=== PATIENT | male | born 1930 | race Caucasian/White ===

== ENCOUNTER 2017-01-05 16:20 | Inpatient (IN) | payer MEDICARE, BC ==
[2017-01-05] VITALS (8 sets, daily range): BP systolic 103–140; BP diastolic 58–81; PULSE 68–81; RESP 16–20; TEMP 97.8–98.7; O2SAT 90–100
[~2017-01-05] VITALS: Ht 167.6 cm; Wt 91.0 kg
[~2017-01-05 16:20] MED LIST: AMLO10 PO; ASPI81 PO; ATAC32TA PO; CITA10TA4 PO; LORTA5 PO; PRAV40TA PO; PREV30CA36 PO; ROPI2 PO; TAB-TAB PO; TRIA50 PO; VITA250T32 PO
[2017-01-05] MEDS ORDERED: AMLO10TA2 PO (17:39)
[2017-01-05] MEDS ORDERED: ASCO250C CHEW (17:39)
[2017-01-05] MEDS ORDERED: CITA10TA4 PO (17:40)
[2017-01-05] MEDS ORDERED: CAND32TA10 PO (17:40)
[2017-01-05] MEDS ORDERED: ASPI81CH CHEW (17:40)
[2017-01-05] MEDS ORDERED: LANS30CA PO (17:41)
[2017-01-05] MEDS ORDERED: PRAV40TA PO (17:41)
[2017-01-05] MEDS ORDERED: ROPI2TAB PO (17:42)
[2017-01-05] MEDS ORDERED: TRIA1CAP6 PO (17:42)
[2017-01-05] MEDS ORDERED: SODIUM CHLORIDE 0.9% FLUSH 5 ML FLUSH IVF PRN (17:45)
--- NOTE | 2017-01-05 17:53 | PD ---
HPI Chief Complaint: GI Complaint Time Seen by Provider: 17:47 Travel History International Travel<30 days: No Contact w/Intl Traveler<30days: No Traveled to known affect area: No History of Present Illness HPI 86-year-old male with history of diverticulosis, status post hemicolectomy, multiple medical issues, presents to the ER today because he states that since last night, he's had abdominal discomfort, bloating, nausea, and currently rates his abdominal pain at a 6 out of 10. He denies any fevers, diarrhea, vomiting, or other symptoms. He had a normal bowel movement last night. Modifying Factors: None Associated Signs & Symptoms: Abdominal pain and bloating Risk Factors: Hemicolectomy history PFSH Past Medical History Anxiety: Yes High Cholesterol: Yes Diminished Hearing: No GERD: Yes Hypertension: Yes Tetanus Vaccination: Unknown Influenza Vaccination: Yes Past Surgical History Abdominal Surgery: Yes (COLON RESECTION FOR DIVERTICULITIS) Social History Alcohol Use: Yes (DRINK DAILY) Tobacco Use: No Substance Use: No Allergies-Medications (Allergen,Severity, Reaction): Uncoded Allergies: NALFON (Allergy, Severe, HIVES, 09/21/09) Reported Meds & Prescriptions Reported Meds & Active Scripts Active Reported Dyrenium (Triamterene) 50 Mg Cap 37.5 Mg PO DAILY Ropinirole 2 Mg Tab 2 Mg PO DAILY Pravachol (Pravastatin) 40 Mg Tab 40 Mg PO DAILY Lansoprazole 30 Mg Capdr 30 Mg PO DAILY Citalopram (Citalopram Hydrobromide) 10 Mg Tab 10 Mg PO DAILY Candesartan (Candesartan Cilexetil) 32 Mg Tab 32 Mg PO DAILY Aspirin 81 Mg Chew 81 Mg CHEW DAILY Ascorbic Acid 250 Mg Chew 250 Mg CHEW DAILY Amlodipine (Amlodipine Besylate) 10 Mg Tab 10 Mg PO DAILY Review of Systems Except as stated in HPI: all other systems reviewed are Neg Physical Exam Narrative GENERAL: [Well-developed elderly white male in no acute distress. Awake and oriented 3. SKIN: Warm and dry. HEAD: Atraumatic. Normocephalic. EYES: Pupils equal and round. No scleral icterus. No injection or drainage. ENT: No nasal bleeding or discharge. Mucous membranes pink and moist. NECK: Trachea midline. No JVD. CARDIOVASCULAR: Regular rate and rhythm. No murmur appreciated. RESPIRATORY: No accessory muscle use. Clear to auscultation. Breath sounds equal bilaterally. GASTROINTESTINAL: Abdomen soft, non-tender, moderately distended. Hepatic and splenic margins not palpable. MUSCULOSKELETAL: No obvious deformities. No clubbing. No cyanosis. No edema. NEUROLOGICAL: Awake and alert. No obvious cranial nerve deficits. Motor grossly within normal limits. Normal speech. PSYCHIATRIC: Appropriate mood and affect; insight and judgment normal. Data Data Last Documented VS Vital Signs Date Time Temp Pulse Resp B/P Pulse Ox O2 Delivery O2 Flow Rate FiO2 01/05/17 18:26 68 16 110/58 98 Room Air 01/05/17 16:36 98.7 Orders Complete Blood Count With Diff (01/05/17 17:42) Comprehensive Metabolic Panel (01/05/17 17:42) Lipase (01/05/17 17:42) Urinalysis - C+S If Indicated (01/05/17 17:42) Iv Access Insert/Monitor (01/05/17 17:42) Ecg Monitoring (01/05/17 17:42) Oximetry (01/05/17 17:42) Sodium Chloride 0.9% Flush (Ns Flush) (01/05/17 17:45) Abdomen, Flat & Upright (01/05/17 17:47) Ct Abd/Pel W Iv Contrast(Rout) (01/05/17 17:47) Labs Laboratory Tests Test 01/05/17 18:24 White Blood Count 12.6 TH/MM3 Red Blood Count 5.05 MIL/MM3 Hemoglobin 15.6 GM/DL Hematocrit 46.8 % Mean Corpuscular Volume 92.7 FL Mean Corpuscular Hemoglobin 30.9 PG Mean Corpuscular Hemoglobin 33.3 % Concent Red Cell Distribution Width 12.2 % Platelet Count 227 TH/MM3 Mean Platelet Volume 8.3 FL Neutrophils (%) (Auto) 82.6 % Lymphocytes (%) (Auto) 11.2 % Monocytes (%) (Auto) 5.1 % Eosinophils (%) (Auto) 0.6 % Basophils (%) (Auto) 0.5 % Neutrophils # (Auto) 10.4 TH/MM3 Lymphocytes # (Auto) 1.4 TH/MM3 Monocytes # (Auto) 0.6 TH/MM3 Eosinophils # (Auto) 0.1 TH/MM3 Basophils # (Auto) 0.1 TH/MM3 CBC Comment AUTO DIFF Sodium Level 142 MEQ/L Potassium Level 4.6 MEQ/L Chloride Level 103 MEQ/L Carbon Dioxide Level 30.1 MEQ/L Anion Gap 9 MEQ/L Blood Urea Nitrogen 36 MG/DL Creatinine 1.80 MG/DL Estimat Glomerular Filtration 36 ML/MIN Rate Random Glucose 121 MG/DL Calcium Level 9.5 MG/DL Total Bilirubin 0.7 MG/DL Aspartate Amino Transf 26 U/L (AST/SGOT) Alanine Aminotransferase 33 U/L (ALT/SGPT) Alkaline Phosphatase 87 U/L Total Protein 8.4 GM/DL Albumin 4.6 GM/DL Lipase 116 U/L [facility] Medical Decision Making Medical Screen Exam Complete: Yes Emergency Medical Condition: Yes Medical Record Reviewed: Yes Interpretation(s) Laboratory Tests Test 01/05/17 18:24 White Blood Count 12.6 TH/MM3 (4.0-11.0) Neutrophils (%) (Auto) 82.6 % (16.0-70.0) Neutrophils # (Auto) 10.4 TH/MM3 (1.8-7.7) Blood Urea Nitrogen 36 MG/DL (7-18) Creatinine 1.80 MG/DL (0.60-1.30) Estimat Glomerular Filtration 36 ML/MIN (>89) Rate Random Glucose 121 MG/DL (74-106) Total Protein 8.4 GM/DL (6.4-8.2) Last 24 hours Impressions Abdomen X-Ray 01/05/17 0604 Signed Impressions: Service Date/Time: Thursday, January 05, 2017 17:53 - CONCLUSION: Nonspecific bowel gas pattern with mildly distended gas-filled loops of small bowel seen. An ileus or bowel obstruction can have this appearance. Jayden Youssef MD Differential Diagnosis Abdominal pain and bloatingobstruction versus ileus versus ascites versus constipation versus other acute intra-abdominal processes Narrative Course Initial x-ray shows signs of ileus. CAT scan ordered for further evaluation. Physician Communication Physician Communication Case is signed out to oncoming physician at 7 PM pending CAT scan. Diagnosis Primary Impression: GENERALIZED ABDOMINAL PAIN Admitting Information Admitting Physician Requests: Admit Katherin Chance MD Jan 05, 2017 17:53
--- NOTE | 2017-01-05 18:12 | RADHPO ---
EXAM DATE/TIME: 01/05/2017 17:53 [facility] COMPARISON: No previous studies available for comparison. INDICATIONS : Abdominal pain, distension starting yesterday MEDICAL HISTORY : Carcinoma, colon. SURGICAL HISTORY : Colon resection ENCOUNTER: Initial ACUITY: 1 day PAIN SCORE: 8/10 LOCATION: All quadrants FINDINGS: Air is present within mildly distended loops of presumed small bowel overlying the central abdomen. T here is some air in the left colon and transverse colon suspected. No free air beneath the diaphragm. Osseous structures are intact. CONCLUSION: Nonspecific bowel gas pattern with mildly distended gas-filled loops of small bowel seen. An ileus or bowel obstruction can have this appearance. Jayden Youssef MD on January 05, 2017 at 18:10 Board Certified Radiologist. This report was verified electronically.
[2017-01-05 18:40] LABS: CHLORIDE 103 MEQ/L (98-107); POTASSIUM 4.6 MEQ/L (3.5-5.1); SODIUM (NA) 142 MEQ/L (136-145)
[2017-01-05 18:43] LABS: AUTOMATED NEUTROPHIL # 10.4 TH/MM3 (1.8-7.7); BASOPHIL # 0.1 TH/MM3 (0-0.2); BASOPHIL % 0.5 % (0.0-2.0); EOSINOPHIL # 0.1 TH/MM3 (0-0.4); EOSINOPHIL % 0.6 % (0.0-4.0); HEMATOCRIT 46.8 % (39.0-51.0); LYMPH % 11.2 % (9.0-44.0); LYMPHOCYTE # 1.4 TH/MM3 (1.0-4.8); MEAN CELL VOLUME 92.7 FL (80.0-100.0); MEAN CORPUSCULAR HEMOGLOBIN 30.9 PG (27.0-34.0); MEAN CORPUSCULAR HGB CONC 33.3 % (32.0-36.0); MONO % 5.1 % (0.0-8.0); NEUT % 82.6 % (16.0-70.0); PLATELET COUNT 227 TH/MM3 (150-450); RED BLOOD COUNT 5.05 MIL/MM3 (4.50-5.90); RED CELL DISTRIBUTION WIDTH 12.2 % (11.6-17.2); WHITE BLOOD COUNT 12.6 TH/MM3 (4.0-11.0)
[2017-01-05 18:44] LABS: ANION GAP 9 MEQ/L (5-15); BICARBONATE 30.1 MEQ/L (21.0-32.0); BLOOD UREA NITROGEN 36 MG/DL (7-18)
[2017-01-05 18:46] LABS: HEMO FLAGS AUTO DIFF
[2017-01-05 18:47] LABS: ALT (GPT) 33 U/L (12-78); AST (GOT) 26 U/L (15-37); GLOMERULAR FILTRATION RATE 36 ML/MIN (>89)
[2017-01-05 18:48] LABS: TOTAL BILIRUBIN ADULT 0.7 MG/DL (0.2-1.0)
[2017-01-05 18:50] LABS: ALKALINE PHOSPHATASE 87 U/L (45-117)
[2017-01-05 19:13] LABS: SCAN/DIFF AUTO DIFF CONFIRMED
[2017-01-05] MEDS ORDERED: IOHEXOL 350 MG/ML 10 ML VIAL (for RAD DIAG) IV ONE (19:15)
[2017-01-05] MEDS ORDERED: IODIXANOL 320 MG/ML 10 ML VIAL (for Rad CT) IV ONE (19:16)
--- NOTE | 2017-01-05 19:28 | RADHPO ---
EXAM DATE/TIME: 01/05/2017 18:56 [facility] COMPARISON: No previous studies available for comparison. INDICATIONS : Diffuse abdominal pain. IV CONTRAST: 50 cc Visipaque (iodixanol) IV ORAL CONTRAST: No oral contrast ingested. RADIATION DOSE: 19.64 CTDIvol (mGy) MEDICAL HISTORY : Hypertension. Gastroesophageal reflux disease. Diverticulitis. SURGICAL HISTORY : Colon resection. Discectomy, lumbar. ENCOUNTER: Initial ACUITY: 1 day PAIN SCALE: 6/10 LOCATION: Bilateral abdomen TECHNIQUE: Volumetric scanning of the abdomen and pelvis was performed. Using automated exposure control and ad justment of the mA and/or kV according to patient size, radiation dose was kept as low as reasonably achievable to obtain optimal diagnostic quality images. FINDINGS: Small hiatal hernia. Mild fatty infiltration of the liver. Spleen, pancreas, left adrenal gland, left kidney is within normal limits. 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 There is a n odule of the medial limb of the right adrenal gland measuring 1.7 cm, incompletely characterized on t his study. Atherosclerotic calcifications of the aorta and iliac vessels are seen. Small fat containi ng inguinal hernias are noted bilaterally. There is diverticulosis of the sigmoid and descending colo n as well as transverse colon without diverticulitis. Appendix normal. There are decompressed loops o f distal ileum identified with a number a transition point in the right lower quadrant on image 49 pr oximal to which there are moderately dilated loops of fluid-filled small bowel seen. There is mild st randing of the small bowel mesentery identified. There is no free intraperitoneal air identified. Stefani g bases are clear. Degenerative changes of the spine are noted. CONCLUSION: 1. Wall bowel obstruction is noted with transition point in the right lower quadrant. Jayden Youssef MD on January 05, 2017 at 19:24 Board Certified Radiologist. This report was verified electronically.
--- NOTE | 2017-01-05 19:40 | PD ---
Physical Exam Date Seen by Provider: Jan 05, 2017 Data Data Last Documented VS Vital Signs Date Time Temp Pulse Resp B/P Pulse Ox O2 Delivery O2 Flow Rate FiO2 01/05/17 20:13 18 01/05/17 19:20 81 140/76 95 Room Air 01/05/17 16:36 98.7 Orders Complete Blood Count With Diff (01/05/17 17:42) Comprehensive Metabolic Panel (01/05/17 17:42) Lipase (01/05/17 17:42) Urinalysis - C+S If Indicated (01/05/17 17:42) Iv Access Insert/Monitor (01/05/17 17:42) Ecg Monitoring (01/05/17 17:42) Oximetry (01/05/17 17:42) Sodium Chloride 0.9% Flush (Ns Flush) (01/05/17 17:45) Abdomen, Flat & Upright (01/05/17 17:47) Ct Abd/Pel W Iv Contrast(Rout) (01/05/17 17:47) Iodixanol 320 Inj (Rad Ct) (Visipaque 32 (01/05/17 19:16) Ondansetron Inj (Zofran Inj) (01/05/17 19:45) Morphine Inj (Morphine Inj) (01/05/17 19:45) Insert Ng Tube (01/05/17 19:45) Consult General Surgery (01/05/17 ) Labs Laboratory Tests Test 01/05/17 18:24 White Blood Count 12.6 TH/MM3 Red Blood Count 5.05 MIL/MM3 Hemoglobin 15.6 GM/DL Hematocrit 46.8 % Mean Corpuscular Volume 92.7 FL Mean Corpuscular Hemoglobin 30.9 PG Mean Corpuscular Hemoglobin 33.3 % Concent Red Cell Distribution Width 12.2 % Platelet Count 227 TH/MM3 Mean Platelet Volume 8.3 FL Neutrophils (%) (Auto) 82.6 % Lymphocytes (%) (Auto) 11.2 % Monocytes (%) (Auto) 5.1 % Eosinophils (%) (Auto) 0.6 % Basophils (%) (Auto) 0.5 % Neutrophils # (Auto) 10.4 TH/MM3 Lymphocytes # (Auto) 1.4 TH/MM3 Monocytes # (Auto) 0.6 TH/MM3 Eosinophils # (Auto) 0.1 TH/MM3 Basophils # (Auto) 0.1 TH/MM3 CBC Comment AUTO DIFF Differential Comment AUTO DIFF CONFIRMED Sodium Level 142 MEQ/L Potassium Level 4.6 MEQ/L Chloride Level 103 MEQ/L Carbon Dioxide Level 30.1 MEQ/L Anion Gap 9 MEQ/L Blood Urea Nitrogen 36 MG/DL Creatinine 1.80 MG/DL Estimat Glomerular Filtration 36 ML/MIN Rate Random Glucose 121 MG/DL Calcium Level 9.5 MG/DL Total Bilirubin 0.7 MG/DL Aspartate Amino Transf 26 U/L (AST/SGOT) Alanine Aminotransferase 33 U/L (ALT/SGPT) Alkaline Phosphatase 87 U/L Total Protein 8.4 GM/DL Albumin 4.6 GM/DL Lipase 116 U/L [facility] Medical Record Reviewed: Yes Supervised Visit with MAGDIEL: No Interpretation(s) Vital Signs Date Time Temp Pulse Resp B/P Pulse Ox O2 Delivery O2 Flow Rate FiO2 01/05/17 19:20 81 18 140/76 95 Room Air 01/05/17 19:20 18 01/05/17 18:26 68 16 110/58 98 Room Air 01/05/17 17:52 100 Room Air 01/05/17 17:32 16 01/05/17 16:36 98.7 75 16 133/81 95 Last Impressions Abdomen/Pelvis CT 01/05/171746 Signed Impressions: Service Date/Time: Thursday, January 05, 2017 18:56 - CONCLUSION: 1. Wall bowel obstruction is noted with transition point in the right lower quadrant. Jayden Youssef MD Abdomen X-Ray 01/05/171746 Signed Impressions: Service Date/Time: Thursday, January 05, 2017 17:53 - CONCLUSION: Nonspecific bowel gas pattern with mildly distended gas-filled loops of small bowel seen. An ileus or bowel obstruction can have this appearance. Jayden Youssef MD CBC & BMP Diagram 01/05/17 18:24 Differential Diagnosis Small bowel obstruction, colitis, ileus, constipation Narrative Course Please see previous providers chart for full workup details. Patient was signed out to me at change of shift. Patient is a very pleasant 86-year-old male with history of hypertension, hyperlipidemia, GERD, anxiety, restless leg syndrome, sleep disorder, hemicolectomy secondary to diverticulitis (30 years ago while in [place], [place] ) in the past, patient reports that since last night, he has had increased abdominal pain and bloating. Patient reports that he did have a bowel movement today, reports that he has been feeling nauseous and has been uncomfortable. Patient reports that he has pain throughout his abdomen, patient reports that he feels as if he has to vomit, reports that he also feels distended in his abdomen and feels as if he has full of stool and cannot pass his bowels. Vital Signs Date Time Temp Pulse Resp B/P Pulse Ox O2 Delivery O2 Flow Rate FiO2 01/05/17 19:20 81 18 140/76 95 Room Air 01/05/17 19:20 18 01/05/17 18:26 68 16 110/58 98 Room Air 01/05/17 17:52 100 Room Air 01/05/17 17:32 16 01/05/17 16:36 98.7 75 16 133/81 95 CBC & BMP Diagram 01/05/17 18:24 CT of the abdomen and pelvis pending at sign out. Patient was reevaluated, patient reports that he has been just feeling nauseous with pain across his abdomen. Discussed with patient that I will give him more medications for nausea and pain. Ct resulted: Last Impressions Abdomen/Pelvis CT 01/05/171746 Signed Impressions: Service Date/Time: Thursday, January 05, 2017 18:56 - CONCLUSION: 1. Wall bowel obstruction is noted with transition point in the right lower quadrant. Jayden Youssef MD Abdomen X-Ray 01/05/171746 Signed Impressions: Service Date/Time: Thursday, January 05, 2017 17:53 - CONCLUSION: Nonspecific bowel gas pattern with mildly distended gas-filled loops of small bowel seen. An ileus or bowel obstruction can have this appearance. Jayden Youssef MD Patient with small bowel obstruction, call made to Gen. surgery as well as medicine service for admission. Case reviewed Dr. Enriquez, will see patient in consult. Request admission to medicine service, plan to keep patient at [facility] and consider a transfer tomorrow should he need surgery case discussed with Dr Beckford who accepts pt to service Diagnosis Primary Impression: GENERALIZED ABDOMINAL PAIN Additional Impression: Small bowel obstruction Admitting Information Admitting Physician Requests: Admit Marian Leung DO Jan 05, 2017 19:40
[2017-01-05] MEDS ORDERED: ONDANSETRON HCL 4 MG/2 ML VIAL IV PUSH ONE (19:45)
[2017-01-05] MEDS ORDERED: MORPHINE SULFATE 4 MG/ML INJ IV PUSH ONE (19:45)
[2017-01-05] MEDS ORDERED: SODIUM CHLOR 0.9% 1000 ML INJ 1,000 ML IV SCH (20:13)
[2017-01-05] MEDS ORDERED: SODIUM CHLORIDE 0.9% FLUSH 5 ML FLUSH FLUSH PRN (20:15)
[2017-01-05] MEDS ORDERED: NALOXONE HCL 0.4 MG/ML AMP IV PRN (20:15)
[2017-01-05] MEDS ORDERED: ENALAPRILAT 2.5 MG/2 ML VIAL IV PUSH PRN (20:30)
[2017-01-05] MEDS: SODIUM CHLORIDE 0.9% FLUSH 5 ML FLUSH FLUSH SCH (20:38)
[2017-01-05] MEDS: SODIUM CHLOR 0.9% 1000 ML INJ 1,000 ML IV SCH (20:51)
[2017-01-05] MEDS: ONDANSETRON HCL 4 MG/2 ML VIAL IVP PRN (22:44)
[2017-01-05] MEDS: MORPHINE SULFATE 4 MG/ML INJ IV PUSH PRN (22:46)
--- NOTE | 2017-01-05 23:04 | MB ---
cc: DEWAYNE ENRIQUEZ M.D. DATE OF CONSULTATION: 01/05/2017 REASON FOR CONSULTATION: Small bowel obstruction. HISTORY OF PRESENT ILLNESS The patient is an 86-year-old male with a history of diverticulosis who is status post left colon resection 30 years ago and has had no problems since that time with any type of bowel obstruction. The patient has multiple other medical issues and presented to the ER today after having a normal bowel movement today and developing progressive abdominal distension and pain. The pain comes in waves, reaches a crescendo and then decreases. The patient has had no emesis with this pain. The patient has not had any fevers or chills with this. No one else is ill in the family. The patient has eaten nothing out of the ordinary other than more than a usual amount of watermelon over the last three days. PAST MEDICAL HISTORY: Past medical history includes anxiety, hypercholesterolemia, GE reflux disease, hypertension, restless leg syndrome. PAST SURGERIES: Includes colon resection for diverticulitis 30 years ago. SOCIAL HISTORY: The patient does drink daily, he does not smoke or use other drugs. ALLERGIES: NALFON CAUSES HIVES. This drug is no longer made. MEDICATIONS: 1. Triamterene 50/37.5 milligrams q day. 2. Ropinirole 2 milligrams q day. 3. Pravastatin 40 milligrams q day. 4. Lansoprazole 30 milligrams p.o. q day. 5. Citalopram 10 milligrams p.o. q day. 6. Candesartan cilexetil 32 milligrams q day. 7. Aspirin 81 milligrams every other day. 8. Vitamin C, 250 milligrams q day. 9. Amlodipine desolate 10 milligrams p.o. q day. REVIEW OF SYSTEMS: Except as indicated above, review of systems are otherwise negative. PHYSICAL EXAMINATION: Reveals an elderly white male in no acute distress. He is awake and oriented. SKIN: Warm with minimal sweating. HEENT: Unremarkable. CARDIAC: Regular rate and rhythm without murmurs. CHEST: Clear to auscultation with slight decreased breath sounds due to abdominal distension. ABDOMEN: Distended, soft with minimal tenderness diffusely. There are no peritoneal signs. There is a well-healed infraumbilical midline scar without hernias. NEUROLOGIC: The patient is awake, alert. Sensorimotor exam is grossly intact. IMAGING STUDIES: Plain film demonstrates dilated loops of small bowel. CT demonstrates small bowel obstruction with a transition point in the right lower quadrant. LABORATORY VALUES: Demonstrate new WBCs of 12.6, BUN and creatinine are elevated at 36 and 1.8. Glucose is elevated at 121, potassium is 4.6. Liver function tests are within normal limits. Lipase is normal at 116. ASSESSMENT Small bowel obstruction likely secondary to adhesions. The patient reports he had colonoscopy [address] Alcaraz and did not need another colonoscopy for three years. The only finding was some small polyps. PLAN The patient has a nasogastric tube in place already and has had some relief from this. We will obtain a KUB in the morning and if the patient does not have contrast in the colon by that time, he will be transferred to [place] in anticipation of laparoscopy, possible laparotomy on Tuesday. I have discussed this with the patient and his who were in agreement. Thank you for asking me to see this patient. He may require transfer depending on findings tomorrow. Dewayne Enriquez MD [facility] /9:06 PM /10:54 PM
[2017-01-06] VITALS (7 sets, daily range): BP systolic 100–134; BP diastolic 61–77; PULSE 61–109; RESP 18–21; TEMP 96–98.9; O2SAT 92–98
[2017-01-06] MEDS: MORPHINE SULFATE 4 MG/ML INJ IV PUSH PRN ×4 (01:29→20:29)
[2017-01-06] MEDS: ONDANSETRON HCL 4 MG/2 ML VIAL IVP PRN (05:44)
[2017-01-06 06:06] LABS: AUTOMATED NEUTROPHIL # 8.6 TH/MM3 (1.8-7.7); BASOPHIL % 0.1 % (0.0-2.0); EOSINOPHIL # 0.1 TH/MM3 (0-0.4); EOSINOPHIL % 0.8 % (0.0-4.0); HEMATOCRIT 48.1 % (39.0-51.0); LYMPH % 8.5 % (9.0-44.0); LYMPHOCYTE # 0.9 TH/MM3 (1.0-4.8); MEAN CELL VOLUME 93.7 FL (80.0-100.0); MEAN CORPUSCULAR HEMOGLOBIN 31.8 PG (27.0-34.0); MONO % 6.6 % (0.0-8.0); PLATELET COUNT 224 TH/MM3 (150-450); RED BLOOD COUNT 5.14 MIL/MM3 (4.50-5.90); RED CELL DISTRIBUTION WIDTH 12.1 % (11.6-17.2); WHITE BLOOD COUNT 10.3 TH/MM3 (4.0-11.0)
[2017-01-06 06:15] LABS: POTASSIUM 4.1 MEQ/L (3.5-5.1)
[2017-01-06 06:19] LABS: BICARBONATE 29.9 MEQ/L (21.0-32.0)
[2017-01-06 06:25] LABS: HEMO FLAGS DIFF FINAL
--- NOTE | 2017-01-06 06:33 | RADHPO ---
EXAM DATE/TIME: 01/06/2017 06:05 [facility] COMPARISON: No previous studies available for comparison. INDICATIONS : Abdominal distension, pain. MEDICAL HISTORY : Hypertension. Gastroesophageal reflux disease. Diverticulitis. SURGICAL HISTORY : Colon resection. Discectomy, lumbar. ENCOUNTER: Subsequent ACUITY: 2 days PAIN SCORE: 7/10 LOCATION: Bilateral abdomen FINDINGS: 2 supine AP views of the abdomen. Contrast is seen in the urinary bladder. Multiple dilated air-fille d loops of small bowel in the mid to upper abdomen. Paucity of gas in the colon. Nasogastric tube in place with the tip in the stomach. CONCLUSION: Dilated air-filled small bowel with paucity of gas in the colon. Findings are again suspicious for sm all bowel obstruction. Jung Art MD on January 06, 2017 at 6:30 Board Certified Radiologist. This report was verified electronically.
[2017-01-06 07:23] LABS: BLOOD, URINE NEG (NEG); GLUCOSE,URINE NEG (NEG); KETONE, URINE NEG (NEG); NITRITE,URINE NEG (NEG)
[2017-01-06 07:24] LABS: METHOD OF COLLECTION CLEAN CATCH; URINE COLOR DARK-YELLOW (YELLW/STRAW)
[2017-01-06 07:31] LABS: COMMENT (UR) CULT NOT INDICATED; CULTURE IF INDICATED CULT NOT INDICATED; HYALINE CAST, URINE 0-2 /lpf (RARE); SQUAMOUS EPITHELIAL CELL URINE 0-5 /hpf (0-5); WBC, URINE 0-2 /hpf (0-5)
[2017-01-06] MEDS: SODIUM CHLORIDE 0.9% FLUSH 5 ML FLUSH FLUSH SCH ×2 (09:00→20:28)
--- NOTE | 2017-01-06 12:28 | HHI.PR ---
Subjective Subjective Notes Resting in bed Reports burping Not passing any gas NGT in place Objective Vitals/I&O Vital Signs Date Time Temp Pulse Resp B/P Pulse Ox O2 Delivery O2 Flow Rate FiO2 01/06/17 04:21 97.1 90 21 134/77 95 01/05/17 23:43 Nasal Cannula 3 Labs Laboratory Tests Test 01/05/17 01/06/17 01/06/17 18:24 05:34 06:45 White Blood Count 12.6 10.3 Red Blood Count 5.05 5.14 Hemoglobin 15.6 16.3 Hematocrit 46.8 48.1 Mean Corpuscular Volume 92.7 93.7 Mean Corpuscular Hemoglobin 30.9 31.8 Mean Corpuscular Hemoglobin 33.3 34.0 Concent Red Cell Distribution Width 12.2 12.1 Platelet Count 227 224 Mean Platelet Volume 8.3 8.2 Neutrophils (%) (Auto) 82.6 84.0 Lymphocytes (%) (Auto) 11.2 8.5 Monocytes (%) (Auto) 5.1 6.6 Eosinophils (%) (Auto) 0.6 0.8 Basophils (%) (Auto) 0.5 0.1 Neutrophils # (Auto) 10.4 8.6 Lymphocytes # (Auto) 1.4 0.9 Monocytes # (Auto) 0.6 0.7 Eosinophils # (Auto) 0.1 0.1 Basophils # (Auto) 0.1 0.0 CBC Comment AUTO DIFF DIFF FINAL Differential Comment AUTO DIFF CONFIRMED Sodium Level 142 142 Potassium Level 4.6 4.1 Chloride Level 103 102 Carbon Dioxide Level 30.1 29.9 Anion Gap 9 10 Blood Urea Nitrogen 36 47 Creatinine 1.80 2.20 Estimat Glomerular Filtration 36 29 Rate Random Glucose 121 141 Calcium Level 9.5 9.1 Total Bilirubin 0.7 Aspartate Amino Transf 26 (AST/SGOT) Alanine Aminotransferase 33 (ALT/SGPT) Alkaline Phosphatase 87 Total Protein 8.4 Albumin 4.6 Lipase 116 Urine Collection Type CLEAN CATCH Urine Color DARK-YELLOW Urine Turbidity CLEAR Urine pH 5.0 Urine Specific [place] GREATER THAN 1.035 Urine Protein TRACE Urine Glucose (UA) NEG Urine Ketones NEG Urine Occult Blood NEG Urine Nitrite NEG Urine Bilirubin NEG Urine Leukocyte Esterase NEG Urine WBC 0-2 Urine Squamous Epithelial 0-5 Cells Urine Amorphous Sediment FEW Urine Hyaline Casts 0-2 Microscopic Urinalysis Comment CULT NOT INDICATED Cardiovascular: Regular Lungs: Clear Abdomen: Other (distended; tender with palpation; NGT to LIWS ) Extremities: No edema A/P Assessment and Plan 86 year old male with SBO -Continue NGT to [facility] -KUB reviewed -NPO -Transfer patient to [facility] for possible surgical intervention tomorrow -Discussed with KYLE BERRIOS -Spoke with (Tiki) on the phone about plan of care and transfer -Please call my cell phone ([phone]) when patient LEAVES [facility] Attending Note - Dr. Enriquez Abdomen still distended NG output 1600 ml overnight KUB not improved Will need exploration Discussed with patient and ; they vocalize understanding and agree to proceed. The exam, history, and the medical decision-making described in the above note were completed with the assistance of the mid-level provider. I reviewed and agree with the findings presented. I attest that I had a [id number] encounter with the patient on the same day, and personally performed and documented my assessment and findings in the medical record. Neeru Adam Jan 06, 2017 12:28 Jaret Enriquez MD Jan 06, 2017 19:11
--- NOTE | 2017-01-06 13:38 | HHI.HP ---
[facility] Non-Staff Admission Diagnosis Small bowel obstruction Diagnoses: (1) Small bowel obstruction Diagnosis: Principal (2) Abdominal pain Diagnosis: Principal (3) Hypertension Diagnosis: Secondary (4) Hyperlipidemia Diagnosis: Secondary (5) GERD (gastroesophageal reflux disease) Diagnosis: Secondary Chief Complaint: Abdominal pain Travel History International Travel<30 Days: No Contact w/Intl Traveler <30 Da: No Traveled to Known Affected Are: No History of Present Illness 86-year-old male with known history of hypertension, hyperlipidemia, gastroesophageal reflux, history of colon resection secondary to diverticulitis who presented to hospital because of abdominal pain and distention. Patient states that he has had abdominal problems for years ever since he had part of his colon removed because of diverticulitis. Patient indicates that he does get intermittent episodes of problems with bowel movements and distention. He states that he usually has a lot of flatulence however that has diminished over the last couple days. Yesterday he noticed his belly was getting distended and had severe pain so his made him come to the hospital for evaluation. Patient states he did have a colonoscopy done 2 weeks ago without any abnormalities. Patient had workup done emergency department found to have acute bowel obstruction and recommended admission for further evaluation management. Upon evaluating the patient today he still has significant abdominal distention despite NG tube placement. Review of Systems Constitutional: DENIES: Diaphoretic episodes, Fatigue, Fever, Weight gain, Weight loss, Chills, Dizziness, Change in appetite, Night Sweats Eyes: DENIES: Blurred vision, Diplopia, Eye inflammation, Eye pain, Vision loss , Double Vision Ears, nose, mouth, throat: DENIES: Vertigo, Nasal discharge, Throat pain, Ear Pain, Running Nose, Sinus Pain Respiratory: DENIES: Apneas, Cough, Snoring, Wheezing, Hemoptysis, Sputum production, Shortness of breath Gastrointestinal: COMPLAINS OF: Abdominal pain, DENIES: Black stools, Bloody stools, Constipation, Diarrhea, Nausea, Vomiting, Difficulty Swallowing, Anorexia Neurologic: DENIES: Abnormal gait, Headache, Localized weakness, Paresthesias, Seizures, Speech Problems, Tremor, Poor Balance Past Family Social History Past Medical History Hypertension Hyperlipidemia History kidney stones History diverticulitis requiring resection History of renal transplant with chronic kidney disease Past Surgical History Kidney transplant Colon Resection secondary to diverticulitis Low back surgery Reported Medications Reported Meds & Active Scripts Active Reported Dyrenium (Triamterene) 50 Mg Cap 37.5 Mg PO DAILY Ropinirole 2 Mg Tab 2 Mg PO DAILY Pravachol (Pravastatin) 40 Mg Tab 40 Mg PO DAILY Lansoprazole 30 Mg Capdr 30 Mg PO DAILY Citalopram (Citalopram Hydrobromide) 10 Mg Tab 10 Mg PO DAILY Candesartan (Candesartan Cilexetil) 32 Mg Tab 32 Mg PO DAILY Aspirin 81 Mg Chew 81 Mg CHEW DAILY Ascorbic Acid 250 Mg Chew 250 Mg CHEW DAILY Amlodipine (Amlodipine Besylate) 10 Mg Tab 10 Mg PO DAILY Allergies: Uncoded Allergies: NALFON (Allergy, Severe, HIVES, 09/21/09) Family History Reviewed is significant for heart disease Social History Patient smoked a pack a cigarettes a day for 25 years. Does drink 2 alcoholic beverages daily. Denies any illicit drugs Physical Exam Vital Signs Vital Signs Date Time Temp Pulse Resp B/P Pulse Ox O2 Delivery O2 Flow Rate FiO2 01/06/17 04:21 97.1 90 21 134/77 95 01/06/17 01:41 96.0 74 18 100/63 94 01/05/17 23:45 97.8 75 20 103/77 97 01/05/17 23:43 65 18 134/72 97 Nasal Cannula 3 01/05/17 23:11 18 01/05/17 21:17 17 01/05/17 21:17 73 18 132/70 96 3 01/05/17 20:55 18 90 Nasal Cannula 3 01/05/17 20:13 18 01/05/17 19:20 81 18 140/76 95 Room Air 01/05/17 19:20 18 01/05/17 18:26 68 16 110/58 98 Room Air 01/05/17 17:52 100 Room Air 01/05/17 17:32 16 01/05/17 16:36 98.7 75 16 133/81 95 Physical Exam GENERAL: Well-developed, well-nourished, in no acute distress. alert and orientated HEENT: Head is normocephalic without any lesions or masses noted. Facial features are symmetric. Eyes: Pupils equal round reactive to light. Extraocular muscles are intact. Conjunctivae were clear. Oropharyngeal: Pharynx without any erythema edema. Tongue is midline without deviation. Buccal mucosa is moist without any masses or lesions NECK: Supple without any masses. Trachea midline no deviation. No JVD, no bruits are appreciated CARDIAC: Regular rhythm, regular rate. S1/S2 are heard. No murmurs gallops or rubs. LUNGS: Clear to auscultation bilaterally. No wheeze, rhonchi or rales. No use of accessory muscles on inspiration or expiration. ABDOMEN: Soft, nontender. Nondistended. Bowel sounds heard in all 4 quadrants. No organomegaly or masses. Negative rebound, negative guarding EXTREMITIES: No edema, pulses are equal bilaterally. No cyanosis or clubbing NEUROLOGY: Mood and affect appear appropriate. Cranial nerves II through XII grossly intact. Muscle strength 5/5 in upper and lower extremities bilaterally. Deep tendon reflexes are 2+ in upper and lower extremities bilaterally. Laboratory Laboratory Tests Test 01/05/17 01/06/17 01/06/17 18:24 05:34 06:45 White Blood Count 12.6 10.3 Red Blood Count 5.05 5.14 Hemoglobin 15.6 16.3 Hematocrit 46.8 48.1 Mean Corpuscular Volume 92.7 93.7 Mean Corpuscular Hemoglobin 30.9 31.8 Mean Corpuscular Hemoglobin 33.3 34.0 Concent Red Cell Distribution Width 12.2 12.1 Platelet Count 227 224 Mean Platelet Volume 8.3 8.2 Neutrophils (%) (Auto) 82.6 84.0 Lymphocytes (%) (Auto) 11.2 8.5 Monocytes (%) (Auto) 5.1 6.6 Eosinophils (%) (Auto) 0.6 0.8 Basophils (%) (Auto) 0.5 0.1 Neutrophils # (Auto) 10.4 8.6 Lymphocytes # (Auto) 1.4 0.9 Monocytes # (Auto) 0.6 0.7 Eosinophils # (Auto) 0.1 0.1 Basophils # (Auto) 0.1 0.0 CBC Comment AUTO DIFF DIFF FINAL Differential Comment AUTO DIFF CONFIRMED Sodium Level 142 142 Potassium Level 4.6 4.1 Chloride Level 103 102 Carbon Dioxide Level 30.1 29.9 Anion Gap 9 10 Blood Urea Nitrogen 36 47 Creatinine 1.80 2.20 Estimat Glomerular Filtration 36 29 Rate Random Glucose 121 141 Calcium Level 9.5 9.1 Total Bilirubin 0.7 Aspartate Amino Transf 26 (AST/SGOT) Alanine Aminotransferase 33 (ALT/SGPT) Alkaline Phosphatase 87 Total Protein 8.4 Albumin 4.6 Lipase 116 Urine Collection Type CLEAN CATCH Urine Color DARK-YELLOW Urine Turbidity CLEAR Urine pH 5.0 Urine Specific [place] GREATER THAN 1.035 Urine Protein TRACE Urine Glucose (UA) NEG Urine Ketones NEG Urine Occult Blood NEG Urine Nitrite NEG Urine Bilirubin NEG Urine Leukocyte Esterase NEG Urine WBC 0-2 Urine Squamous Epithelial 0-5 Cells Urine Amorphous Sediment FEW Urine Hyaline Casts 0-2 Microscopic Urinalysis Comment CULT NOT INDICATED Result Diagram: 01/06/17 0534 01/06/17 0534 Imaging Last Impressions Abdomen X-Ray 01/06/17 0600 Signed Impressions: Service Date/Time: December 06:05 - CONCLUSION: Dilated air-filled small bowel with paucity of gas in the colon. Findings are again suspicious for small bowel obstruction. Jung Art MD Abdomen/Pelvis CT 01/05/177 Signed Impressions: Service Date/Time: Thursday, January 05, 2017 18:56 - CONCLUSION: 1. Wall bowel obstruction is noted with transition point in the right lower quadrant. Jayden Youssef MD Assessment and Plan Assessment and Plan Acute small bowel obstruction with presenting abdominal pain distention: Increased risk factors from previous abdominal surgery. CT scan does show small bowel obstruction with transition zone. Follow-up KUB does not indicate any contrast into the colon. Gen. surgery has evaluated the patient and plans for surgical intervention if no self resolution. Patient continues with NG tube to low intermittent wall suction. Continue pain control. Continue IV fluids Acute renal failure superimposed on chronic kidney disease: Records indicate patient has history of renal transplant. Continue IV fluids, monitor renal function Hypertension, hyperlipidemia: Will use as needed IV medication for blood pressure management, resume home medications when patient able tolerate by mouth DVT prevention: Sequential compression devices Written by Socrates Lo PA-C, acting as scribe for Dr. Aburto on 01/06/17 at 1610. The documentation accurately reflects the work and decisions performed face-to- face by Dr. Aburto on 01/06/17 at 1610. Physician Certification 2 Midnight Certification Type: Admission for Inpatient Services Order for Inpatient Services The services are ordered in accordance with Medicare regulations or non- Medicare payer requirements, as applicable. In the case of services not specified as inpatient-only, they are appropriately provided as inpatient services in accordance with the 2-midnight benchmark. Estimated LOS (days): 4 days is the estimated time the patient will need to remain in the hospital, assuming treatment plan goals are met and no additional complications. Post-Hospital Plan: Not yet determined Problem Qualifiers (1) Abdominal pain: Qualified Code: R10.84 - Generalized abdominal pain (2) Hypertension: Qualified Code: I15.9 - Secondary hypertension (3) Hyperlipidemia: Qualified Code: E78.5 - Hyperlipidemia, unspecified hyperlipidemia type Socrates Lo Jan 06, 2017 13:38 Michael Aburto MD Jan 06, 2017 18:42
[2017-01-06] MEDS ORDERED: LORazepam 2 MG/ML VIAL IV PUSH PRN (16:45)
[2017-01-06] MEDS: SODIUM CHLOR 0.9% 1000 ML INJ 1,000 ML IV SCH (17:37)
[2017-01-07] MEDS: SODIUM CHLOR 0.9% 1000 ML INJ 1,000 ML IV SCH ×2 (03:53→17:01)
[2017-01-07 04:00] VITALS: BP 93/58; PULSE 101; RESP 19; TEMP 96; O2SAT 95
[2017-01-07 04:59] LABS: AUTOMATED NEUTROPHIL # 3.2 TH/MM3 (1.8-7.7); BASOPHIL % 0.4 % (0.0-2.0); EOSINOPHIL % 0.3 % (0.0-4.0); HEMATOCRIT 49.6 % (39.0-51.0); HEMO FLAGS DIFF FINAL; LYMPH % 19.5 % (9.0-44.0); MEAN CELL VOLUME 93.8 FL (80.0-100.0); MEAN CORPUSCULAR HEMOGLOBIN 32.1 PG (27.0-34.0); MEAN CORPUSCULAR HGB CONC 34.2 % (32.0-36.0); MONO % 18.3 % (0.0-8.0); NEUT % 61.5 % (16.0-70.0); PLATELET COUNT 222 TH/MM3 (150-450); RED BLOOD COUNT 5.28 MIL/MM3 (4.50-5.90); WHITE BLOOD COUNT 5.1 TH/MM3 (4.0-11.0)
[2017-01-07 05:23] LABS: BICARBONATE 34.1 MEQ/L (21.0-32.0); MAGNESIUM 2.2 MG/DL (1.5-2.5); POTASSIUM 3.9 MEQ/L (3.5-5.1)
[2017-01-07] MEDS: SODIUM CHLORIDE 0.9% FLUSH 5 ML FLUSH FLUSH SCH ×2 (07:10→20:58)
[2017-01-07 08:00] VITALS: BP_SYST 78; BP_DIAS 52; BP_DIAS 56; PULSE 104; RESP 14; TEMP 96.8; O2SAT 94
[2017-01-07] MEDS ORDERED: SODIUM CHLOR 0.9% 1000 ML INJ 1,000 ML IV ONE ×5 (08:00→22:15)
[2017-01-07 09:45] VITALS: BP 88/55
[2017-01-07] MEDS ORDERED: SODIUM CHLORID 0.9% 500 ML INJ 500 ML IV ONE ×3 (09:45→18:00)
[2017-01-07 09:48] VITALS: BP 90/55
[2017-01-07] MEDS ORDERED: PHENYLEPHRINE HCL 10 MG/ML VIAL IV ONE (10:29)
[2017-01-07] MEDS ORDERED: LACTATED RINGER'S 1000 ML INJ 1,000 ML IV ONE (10:29)
[2017-01-07] MEDS ORDERED: ETOMIDATE 20 MG/10 ML VIAL IV PUSH ONE (10:29)
[2017-01-07] MEDS ORDERED: ONDANSETRON HCL 4 MG/2 ML VIAL IV PUSH ONE (10:29)
[2017-01-07] MEDS ORDERED: PHENYLEPH/NS 1000 MCG/10 ML SYR IV ONE (10:29)
[2017-01-07] MEDS ORDERED: NORMOSOL R INJ 3,000 ML IV ONE (10:29)
[2017-01-07 10:45] VITALS: BP 98/60
--- NOTE | 2017-01-07 11:13 | HHI.PR ---
Subjective Remarks Pt states that he feels his abdomen is softer compared to yesterday. He is not having pain at this time. No flatus or BM so far. No nausea or vomiting discussed w RN, urine output after gil placement was 125cc Objective Vitals Vital Signs Date Time Temp Pulse Resp B/P Pulse Ox O2 Delivery O2 Flow Rate FiO2 01/07/17 09:48 90/55 01/07/17 09:45 88/55 01/07/17 08:00 96.8 104 14 78/52 94 78/56 01/07/17 04:00 96.0 101 19 93/58 95 01/06/17 23:29 97.7 96 20 128/68 95 01/06/17 21:12 18 01/06/17 20:00 98.9 61 20 113/61 98 01/06/17 16:00 97.8 109 19 105/71 93 01/06/17 12:00 98.7 102 19 112/70 93 01/06/17 12:00 98.1 102 19 112/70 93 I/O 01/06/17 01/06/17 01/06/17 01/07/17 01/07/17 01/07/17 07:00 15:00 23:00 07:00 15:00 23:00 Intake Total 0 ml 0 ml Output Total 1800 ml 400 ml 800 ml 300 ml Balance -1800 ml -400 ml -800 ml -300 ml Intake Oral 0 ml 0 ml Output Urine Total 200 ml 300 ml Gastric Drainage Total 1600 ml 400 ml 800 ml # Voids 0 4 # Bowel Movements 0 0 Result Diagram: 01/07/17 0405 01/07/17 0405 Imaging Last Impressions Abdomen X-Ray 01/06/17 0600 Signed Impressions: Service Date/Time: December 06:05 - CONCLUSION: Dilated air-filled small bowel with paucity of gas in the colon. Findings are again suspicious for small bowel obstruction. Jung rAt MD Abdomen/Pelvis CT 01/05/17 2874 Signed Impressions: Service Date/Time: Thursday, January 05, 2017 18:56 - CONCLUSION: 1. Wall bowel obstruction is noted with transition point in the right lower quadrant. Jayden Youssef MD Objective Remarks GENERAL: Well-developed, well-nourished, in no acute distress. alert and orientated CARDIAC: Regular rhythm, regular rate. S1/S2 are heard. No murmurs LUNGS: Clear to auscultation bilaterally. No wheeze. No use of accessory muscles on inspiration or expiration. ABDOMEN: distended, somewhat soft, bowel sound are present but somewhat hypoactive. some discomfort w deep palpation on the left upper and lower quadrants EXTREMITIES: No edema, pulses are equal bilaterally. moves extremities NEUROLOGY: Mood and affect appear appropriate. Cranial nerves II through XII grossly intact. A/P Problem List: (1) Small bowel obstruction ICD Code: K56.69 Status: Acute (2) Abdominal pain ICD Code: R10.9 Status: Acute (3) Hypertension ICD Code: I10 Status: Acute (4) Hyperlipidemia ICD Code: E78.5 Status: Acute (5) GERD (gastroesophageal reflux disease) ICD Code: K21.9 Status: Acute Assessment and Plan Acute small bowel obstruction with presenting abdominal pain distention: Increased risk factors from previous abdominal surgery. CT scan does show small bowel obstruction with transition zone. Gen. surgery following and will be taking pt to the OR this morning. NG tube in place. Continue pain control. Continue IV fluids. --Low BPs: pt received 1 L Bolus NS earlier this morning and currently receiving 500ml NS bolus. MAP >65 thus far. Monitor closely. Acute renal failure superimposed on chronic kidney disease: worsening. Ordered gil to be placed stat, at bedside RN collected 125ml of urine after gil placement. Continue IV fluids, monitor renal function closely. Per and patient he has no prior hx of renal transplant or kidney failure. Hypertension, hyperlipidemia: on as needed IV medication for blood pressure management, resume home medications when patient able tolerate by mouth DVT prevention: Sequential compression devices Discharge Planning OR today Problem Qualifiers (1) Abdominal pain: Qualified Code: R10.84 - Generalized abdominal pain (2) Hypertension: Qualified Code: I15.9 - Secondary hypertension (3) Hyperlipidemia: Qualified Code: E78.5 - Hyperlipidemia, unspecified hyperlipidemia type Polly Lira MD Jan 07, 2017 11:13
[2017-01-07 12:00] VITALS: BP 83/52; PULSE 105; RESP 14; TEMP 96.6; O2SAT 94
[2017-01-07] MEDS ORDERED: MIDAZOLAM HCL 2 MG/2 ML VIAL ONE (12:15)
[2017-01-07] MEDS ORDERED: metroNIDAZOLE 500 MG INJ 100 ML IV ONE (13:18)
[2017-01-07] MEDS ORDERED: ceFAZolin INJ 1,000 MG VIAL ONE (13:18)
[2017-01-07] MEDS ORDERED: BUPIVACAINE/EPINEPHRINE 0.25% PF 30 ML VIAL INFIL ONE (13:58)
[2017-01-07] MEDS ORDERED: ACETAMINOPHEN 1000 MG/100 ML VIAL IV ONE (14:01)
[2017-01-07 14:27] LABS: HEMATOCRIT 42.4 % (39.0-51.0); REVIEW FLAG FINAL
[2017-01-07 14:32] LABS: BLOOD GAS BASE EXCESS 4.6 mmol/L (-2-2); BLOOD GAS CARBOXYHEMOGLOBIN 1.1 % (0-4); BLOOD GAS HCO3 29 mmol/L (22-26); BLOOD GAS O2 HGB SATURATION 97 % (90-100); BLOOD GAS OXYGEN CONTENT 21.5 Vol % (12.0-20.0); BLOOD GAS PCO2 42 mmHg (38-42); BLOOD GAS PO2 285 mmHG (61-120); BLOOD GAS TOTAL HGB 15.2 G/DL (12.0-16.0); CRITICAL VALUE NO; OXYGEN DEVICE OR; TEMP CORR TO 98.6
[2017-01-07 14:33] LABS: DRAW SITE ART LINE; FIO2 60 %; STAT YES; VENT SETTINGS SEE OR CHART
--- NOTE | 2017-01-07 14:55 | EKG ---
Date Performed: 01/07/2017 Time Performed: 11:40:31 PTAGE: 86 years EKG: SINUS TACHYCARDIA ABNORMAL RHYTHM ECG NO PREVIOUS TRACING DOCTOR: Maria L Sagastume Interpretating Date/Time 01/07/2017 14:52:24
[2017-01-07] MEDS ORDERED: SUGAMMADEX SODIUM 200 MG/2 ML VIAL IV PUSH ONE ×2 (15:18)
--- NOTE | 2017-01-07 15:57 | HHI.PR ---
cc: Jaret Enriquez MD Immediate Post Op Note Procedure Date: Jan 07, 2017 Pre Op Diagnosis: Small bowel obstruction, persistent Post Op Diagnosis: Same Surgeon: Jaret Enriquez Boat Painter(s): NEEMA Bowers Procedure: Diagnostic laparoscopy, laparoscopic lysis of adhesions Exploratory laparotomy with decompression small bowel via enterotomy, further lysis adhesions Findings: Tight adhesion LLQ Additional Information: No ischemic bowel Complications: None Specimen(s) removed: None Estimated blood loss: 200 ml Anesthesia: General Drains: JANE IVF (4000 ml) Patient to: PACU Patient Condition: Fair Date/Time of Procedure: SEE SURGICAL CARE RECORD Jaret Enriquez MD Jan 07, 2017 15:57
[2017-01-07] MEDS ORDERED: DO NOT ADM ANY ANTICOAGULANT DRUGS XX PRN (16:17)
[2017-01-07] MEDS ORDERED: fentaNYL CITRATE 250 MCG/5 ML AMP ONE (16:30)
[2017-01-07 16:45] LABS: HEMATOCRIT 43.5 % (39.0-51.0); MEAN CORPUSCULAR HEMOGLOBIN 31.7 PG (27.0-34.0); PLATELET COUNT 255 TH/MM3 (150-450); RED BLOOD COUNT 4.68 MIL/MM3 (4.50-5.90); RED CELL DISTRIBUTION WIDTH 12.3 % (11.6-17.2); REVIEW FLAG FINAL; WHITE BLOOD COUNT 4.1 TH/MM3 (4.0-11.0)
[2017-01-07] MEDS ORDERED: *morphine SULFATE 8 MG/ML PERIprocedure ONLY ONE (16:46)
[2017-01-07 17:17] LABS: BICARBONATE 30.2 MEQ/L (21.0-32.0); POTASSIUM 3.5 MEQ/L (3.5-5.1)
--- NOTE | 2017-01-07 17:20 | RADRPT ---
EXAM DATE/TIME: 01/07/2017 17:01 [place] COMPARISON: No previous studies available for comparison. INDICATIONS : Central line placement MEDICAL HISTORY : None. SURGICAL HISTORY : None. ENCOUNTER: Initial ACUITY: 1 day PAIN SCORE: 0/10 LOCATION: Bilateral chest FINDINGS: And NG tube in place. There is a left subclavian line in place with tip overlying the SVC. The heart size is normal. There some mild underlying prominence of the interstitium. A focal consolidation is n ot seen. An effusion is not seen. CONCLUSION: 1. Left subclavian line in good position without a pneumothorax. 2. Prominence of the interstitium representing underlying processes such as pulmonary venous hyperten sorin/mild edema or chronic interstitial disease such as bronchitis. Julio César Gonzalez MD on January 07, 2017 at 17:17 Board Certified Radiologist. This report was verified electronically.
[2017-01-07 17:32] LABS: CALCIUM-PROTEIN CORRECTED 7.8 MG/DL (8.5-10.1)
[2017-01-07] MEDS ORDERED: NOREPINEPHRINE 4 MG/4 ML AMP ONE (18:04)
--- NOTE | 2017-01-07 18:11 | HHI.PR ---
Addendum to Inpatient Note Addendum Reason: Additional Documentation Additional Information I was paged by RN from PACU that pt's Cr went up to 5.9 post surgery. She also notified me that pt's BP were low w a MAP was 62. I ordered a 500ml bolus stat and went to evaluate the patient. At my arrival BP was lower and MAP was 58 and remained there, I immediately called Dr. Angela, water engineer prepared foods production team member who recommended to start levophed drip which I did and added 2 additional Liter NS boluses STAT. At the time, Pt had a CVP was 1 ( he had a central line post op). I also placed a nephrology consult for acute kidney failure w an official consult to the water engineer service. renal/bladder u/s ordered. I ordered both lactic acid and blood cultures. Pt is talking to me and tells me that he has abdominal pain, he denies nausea or vomiting. he falls back to sleep. he appears comfortable. urine output post op was 100ml per RN in 2 hours but is noted to have decrease down to 20ml the last hour. Will keep gil in place, monitor urine output closely. Discussed w Dr. Angela and bedside RN. critical care time was 45 mins. Polly Lira MD Jan 07, 2017 18:11
[2017-01-07] MEDS ORDERED: TERBUTALINE INJ 1 MG/ML AMP SQ PRN (18:15)
[2017-01-07] MEDS ORDERED: NOREPINEPHRINE-DEXTROSE DRIP 250 ML IV SCH (18:15)
[2017-01-07 18:55] LABS: BLOOD GAS BASE EXCESS 3.8 mmol/L (-2-2); BLOOD GAS CARBOXYHEMOGLOBIN 1.7 % (0-4); BLOOD GAS HCO3 28 mmol/L (22-26); BLOOD GAS METHEMOGLOBIN 1.5 % (0-2); BLOOD GAS O2 HGB SATURATION 93 % (90-100); BLOOD GAS OXYGEN CONTENT 18.1 Vol % (12.0-20.0); BLOOD GAS PCO2 43 mmHg (38-42); BLOOD GAS PO2 91 mmHg (61-120); BLOOD GAS TOTAL HGB 13.7 G/DL (12.0-16.0); CRITICAL VALUE NO; DRAW SITE ART LINE; LITER FLOW 4 L/M; OXYGEN DEVICE NASAL CANNULA; STAT YES; TEMP CORR TO 98.6
--- NOTE | 2017-01-07 19:10 | PD.CONS ---
[facility] Service Critical Care Medicine Consult Requested By Dr. Lira Reason for Consult Septic and hypovolemic shock Small bowel obstruction Status post diagnostic laparoscopy, laparoscopic lysis of adhesions, followed by exploratory laparotomy and small bowel decompression through enterostomy Acute kidney failure Primary Care Physician Non-Staff History of Present Illness 86-year-old male with history of hypertension, hyperlipidemia, gastroesophageal reflux, history of colon resection secondary to diverticulitis who presented to hospital because of abdominal pain and distention. Starting one day prior to admission his abdomen was getting distended and had severe pain. Patient had workup done emergency department and imaging showed acute small bowel obstruction with right lower quadrant transition point. General surgery Dr. Enriquez was consulted. Initially patient had a BUN/creatinine of 36 and 1.8 on the day of admission 01/05/17. Yesterday creatinine increased to 2.2 and today a.m. it was 5.05. Today patient underwent diagnostic laparoscopy, laparoscopic lysis of adhesions, followed by exploratory laparotomy and small bowel decompression through enterostomy. According to Dr. Enriquez small bowel was distended and edematous, he perform an enterostomy and suctioned out about 1.4 L of fluid to decompress the small bowel. Prior to or patient received 1 L of crystalloid and in the OR patient received additional 4 L crystalloid. EBL 200 ml and UO was 100 ml for 2 hour surgery. Postoperative patient was transferred to PACU and repeat labs showed creatinine of 5.9. Patient became increasingly hypotensive with map of 50. [facility] was consulted. On my evaluation in PACU patient is alert awake oriented moderate distress due to pain. Patient's mucosa dry and his CVP is only one. I have ordered additional 3 L of fluid boluses, and will continue to aggressively fluid resuscitated. I have ordered Levophed which had been started and currently is at 10 mics per minute. A lactic acid and blood culture is pending at this time. After urine output is also diminishing last one hour urine output is only 20 mL. Review of Systems ROS Limitations: Other (as per HPI) Past Family Social History Allergies: Uncoded Allergies: NALFON (Allergy, Severe, HIVES, 09/21/09) Past Medical History Hypertension Hyperlipidemia History kidney stones History diverticulitis requiring resection History of renal transplant with chronic kidney disease Past Surgical History Kidney transplant Colon Resection secondary to diverticulitis Low back surgery Reported Medications Dyrenium (Triamterene) 50 Mg Cap 37.5 Mg PO DAILY Ropinirole 2 Mg Tab 2 Mg PO DAILY Pravachol (Pravastatin) 40 Mg Tab 40 Mg PO DAILY Lansoprazole 30 Mg Capdr 30 Mg PO DAILY Citalopram (Citalopram Hydrobromide) 10 Mg Tab 10 Mg PO DAILY Candesartan (Candesartan Cilexetil) 32 Mg Tab 32 Mg PO DAILY Aspirin 81 Mg Chew 81 Mg CHEW DAILY Ascorbic Acid 250 Mg Chew 250 Mg CHEW DAILY Amlodipine (Amlodipine Besylate) 10 Mg Tab 10 Mg PO DAILY Active Ordered Medications Reviewed Family History Significant for heart disease Social History Patient smoked a pack a cigarettes a day for 25 years, quit 30 years ago. Does drink 2 alcoholic beverages daily. Physical Exam Vital Signs Vital Signs Date Time Temp Pulse Resp B/P Pulse Ox O2 Delivery O2 Flow Rate FiO2 01/07/17 18:45 97 12 114/63 97 Nasal Cannula 3 01/07/17 18:30 94 16 130/68 96 Nasal Cannula 3 01/07/17 18:15 98 15 115/64 98 Nasal Cannula 3 01/07/17 18:00 100 20 77/33 96 Nasal Cannula 3 01/07/17 17:45 105 18 87/42 94 Nasal Cannula 3 01/07/17 17:30 116 23 103/56 94 Nasal Cannula 3 01/07/17 17:15 107 22 95/48 94 Nasal Cannula 3 01/07/17 17:00 107 15 92/53 93 Nasal Cannula 3 01/07/17 16:45 114 19 103/48 95 Nasal Cannula 3 01/07/17 16:30 106 24 106/54 95 Nasal Cannula 3 01/07/17 16:15 98.3 111 23 104/55 95 Nasal Cannula 3 01/07/17 12:00 96.6 105 14 83/52 94 01/07/17 10:45 98/60 01/07/17 09:48 90/55 01/07/17 09:45 88/55 01/07/17 08:00 96.8 104 14 78/52 94 78/56 01/07/17 04:00 96.0 101 19 93/58 95 01/06/17 23:29 97.7 96 20 128/68 95 01/06/17 21:12 18 01/06/17 20:00 98.9 61 20 113/61 98 Physical Exam GENERAL: Well-developed, well-nourished, in moderate distress due to postop pain. Alert and orientated HEENT: Head is normocephalic atraumatic Eyes: Pupils equal round reactive to light. Oral mucosa is dry lips are crusted NECK: Supple without any masses. Trachea midline no deviation. CVP 1 CARDIAC: Regular rhythm, regular rate. S1/S2 are heard. No murmurs gallops or rubs. LUNGS: Clear to auscultation bilaterally. No wheeze, rhonchi or rales. No use of accessory muscles. ABDOMEN: Soft, distended, tender in all quadrants. Midline laparotomy incision dressing intact. Single JANE drain with sanguinous output EXTREMITIES: No edema, pulses are equal bilaterally, but weak. No cyanosis or clubbing NEUROLOGY: Patient is somnolent but wakes up easily. Follows commands no focal deficits Laboratory Laboratory Tests Test 01/07/17 01/07/17 01/07/17 01/07/17 04:05 14:05 16:20 18:40 White Blood Count 5.1 4.1 Red Blood Count 5.28 4.68 Hemoglobin 17.0 14.2 14.8 Hematocrit 49.6 42.4 43.5 Mean Corpuscular Volume 93.8 93.0 Mean Corpuscular Hemoglobin 32.1 31.7 Mean Corpuscular Hemoglobin 34.2 34.0 Concent Red Cell Distribution Width 13.0 12.3 Platelet Count 222 255 Mean Platelet Volume 8.2 8.1 Neutrophils (%) (Auto) 61.5 Lymphocytes (%) (Auto) 19.5 Monocytes (%) (Auto) 18.3 Eosinophils (%) (Auto) 0.3 Basophils (%) (Auto) 0.4 Neutrophils # (Auto) 3.2 Lymphocytes # (Auto) 1.0 Monocytes # (Auto) 0.9 Eosinophils # (Auto) 0.0 Basophils # (Auto) 0.0 CBC Comment DIFF FINAL Differential Comment Sodium Level 145 144 Potassium Level 3.9 3.5 Chloride Level 96 96 Carbon Dioxide Level 34.1 30.2 Anion Gap 15 18 Blood Urea Nitrogen 69 76 Creatinine 5.05 5.90 Estimat Glomerular Filtration 11 9 Rate Random Glucose 134 142 Calcium Level 9.1 7.4 Magnesium Level 2.2 Blood Gas Puncture Site ART LINE ART LINE Blood Gas Patient Temperature 98.6 98.6 Blood Gas HCO3 29 28 Blood Gas Base Excess 4.6 3.8 Blood Gas Oxygen Saturation 97 93 Arterial Blood pH 7.45 7.42 Arterial Blood Partial 42 43 Pressure CO2 Arterial Blood Partial 285 91 Pressure O2 Arterial Blood Oxygen Content 21.5 18.1 Arterial Blood 1.1 1.7 Carboxyhemoglobin Arterial Blood Methemoglobin 1.0 1.5 Blood Gas Hemoglobin 15.2 13.7 Oxygen Delivery Device OR NASAL CANNULA Blood Gas Ventilator Setting SEE OR CHART Blood Gas Inspired Oxygen 60 Protein Corrected Calcium 7.8 Total Protein 6.3 Blood Gas Liter Flow 4 Result Diagram: 01/07/17 1620 01/07/[address] abd/pelvis: Small bowel obstruction with right lower quadrant transition point Septic Shock Reassessment Heart: Other (tachycardic) Lungs: Clear Skin: Dry Peripheral Pulses: Weak Right Radial Weak Left Radial Capillary Refill: Sluggish Assessment and Plan Assessment and Plan NEURO: Postop pain Daily alcohol use -Morphine for pain control, Zofran for nausea vomiting -For alcohol withdrawal. Supplement thiamine. Ativan when necessary for agitation withdrawal RESP: Prior tobacco use -Nasal cannula oxygen -DuoNeb every 6 hours and when necessary -Aggressive pulmonary toilet, incentive spirometry, Acapella CV: Septic and hypovolemic shock History of hypertension -Continue aggressive fluid resuscitation. -Received 4 L of crystalloids in the OR, will additional 3.5 L bolus, and reassess hourly -Continue normal saline at 150 ML per hour, trend lactic acid, monitor CVP -Levophed to keep map above 65 GI: Small bowel obstruction s/p Laparoscopic lysis of adhesions, followed by exploratory laparotomy and small bowel decompression through enterostomy -Postop wound management per Dr. Enriquez -Keep nothing by mouth, NG tube to intermittent wall suction -Empiric Zosyn. Follow up on cultures -No evidence of bowel ischemia per Dr. Enriquez : Acute kidney failure -Acute kidney injury secondary to ATN from septic shock -Nephrology consulted no indication for emergency dialysis but may need dialysis if creatinine and renal function not improving -Repeat CMP at 10 PM, and 5AM ID: Severe sepsis/septic shock -Start empiric Zosyn renally adjusted dose. Blood cultures 2 have been sent HEME: -Monitor CBC, CMP, coags ENDO: -Electrolyte replacement as needed PROPH: -Bilateral lower extremity SCDs. Start chemical DVT prophylaxis when cleared by general surgery (wait [address] Enriquez). IV Protonix for GI prophylaxis LINES: -L subclavian central line placed in OR 01/07/17 CC time 78 min including multiple reassessments over the last 5 hour period Code Status Full Code Discussed Condition With Soraya Davenport, and bedside RN Jacque Angela MD Jan 07, 2017 19:10
[2017-01-07] MEDS: PIPERACIL-TAZO 2.25 GM PREMIX 50 ML IV SCH (20:30)
[2017-01-07] MEDS: PANTOPRAZOLE SODIUM 40 MG VIAL IV PUSH SCH (21:00)
[2017-01-07] MEDS: THIAMINE INJ 100 MG in SODIUM CHLORIDE 0.9% INJ 100 ML IV SCH (21:00)
[2017-01-07] MEDS: RESP: ALBUTEROL 2.5 MG/IPRATROPIUM 0.5 MG NEB (SCH) NEB (22:48)
[2017-01-07 22:51] LABS: BICARBONATE 33.1 MEQ/L (21.0-32.0); CALCIUM-PROTEIN CORRECTED 7.7 MG/DL (8.5-10.1); MAGNESIUM 1.8 MG/DL (1.5-2.5); POTASSIUM 3.1 MEQ/L (3.5-5.1); TOTAL BILIRUBIN ADULT 0.8 MG/DL (0.2-1.0)
[2017-01-07] MEDS ORDERED: POTASSIUM CHLORIDE INJ 40 MEQ in SODIUM CHLORID 0.9% 500 ML INJ 500 ML IV-CENTRAL ONE (23:15)
[2017-01-07] MEDS ORDERED: POTASSIUM CHLOR 40 MEQ PREMIX 100 ML ONE (23:46)
[2017-01-08] VITALS (11 sets, daily range): BP systolic 110–166; BP diastolic 55–66; PULSE 93–104; RESP 15–21; TEMP 96.6–98.3; O2SAT 95–98
[2017-01-08] MEDS: SODIUM CHLOR 0.9% 1000 ML INJ 1,000 ML IV SCH
[2017-01-08] MEDS ORDERED: SODIUM CHLORID 0.9% 500 ML INJ 500 ML IV ONE (01:45)
--- NOTE | 2017-01-08 01:53 | HHI.CCPN ---
Subjective Remarks/Hospital Course 86-year-old male with history of hypertension, hyperlipidemia, gastroesophageal reflux, history of colon resection secondary to diverticulitis who presented to hospital because of abdominal pain and distention. Starting one day prior to admission his abdomen was getting distended and had severe pain. Workup done in the emergency department and imaging showed acute small bowel obstruction with right lower quadrant transition point. General surgery Dr. Enriquez was consulted. Initially patient had a BUN/creatinine of 36 and 1.8 on the day of admission 01/05/17. 01/06 creatinine increased to 2.2 and today a.m. it was 5.05. Today patient underwent diagnostic laparoscopy, laparoscopic lysis of adhesions, followed by exploratory laparotomy and small bowel decompression through enterostomy. According to Dr. Enriquez small bowel was distended and edematous, he perform an enterostomy and suctioned out about 1.4 L of fluid to decompress the small bowel. Prior to OR patient received 1 L of crystalloid and in the OR patient received additional 4 L crystalloid. EBL 200 ml and UO was 100 ml for 2 hour surgery. Postoperative patient was transferred to PACU and repeat labs showed creatinine of 5.9. Patient became increasingly hypotensive with map of 50. [facility] was consulted. On my evaluation in PACU patient is alert awake oriented moderate distress due to pain. Patient's mucosa dry and his CVP is only one. I have ordered additional 3 L of fluid boluses. I have also ordered Levophed which had been started and currently is at 10 mics per minute. Lactic acid and blood culture is pending at this time. Urine output is also diminishing last one hour urine output is only 20 mL. SUBJ 01/08/17: Patient remains on 3 mcg/m of Levophed down from 10 mcg/m. Received total 4.5 L normal saline postop. His urine output has significantly improved, making 100-150 ML per hour, with aggressive fluid resuscitation. At 10 PM creatinine has improved to 4.6 from 5.9 earlier. His lactic acid was normal Objective Vital Signs Date Time Temp Pulse Resp B/P Pulse Ox O2 Delivery O2 Flow Rate FiO2 01/08/17 01:00 102 16 113/63 98 Simple Mask 5 120/56 01/08/17 00:00 98.3 Intake and Output 01/07/17 01/07/17 01/08/17 08:00 16:00 00:00 Intake Total 0 ml 0 ml 69537 ml Output Total 300 ml 675 ml 1985 ml Balance -300 ml -675 ml 8214 ml Result Diagram: 01/07/17 1620 01/07/17 2159 Other Results Laboratory Tests Test 01/07/17 01/07/17 14:05 18:40 Blood Gas Puncture Site ART LINE ART LINE Blood Gas Patient Temperature 98.6 98.6 Blood Gas HCO3 29 mmol/L 28 mmol/L (22-26) (22-26) Blood Gas Base Excess 4.6 mmol/L 3.8 mmol/L (-2-2) (-2-2) Blood Gas Oxygen Saturation 97 % (90-100) 93 % (90-100) Arterial Blood pH 7.45 7.42 (7.380-7.420) (7.380-7.420) Arterial Blood Partial 42 mmHg (38-42) 43 mmHg (38-42) Pressure CO2 Arterial Blood Partial 285 mmHG 91 mmHg Pressure O2 (61-120) (61-120) Arterial Blood Oxygen Content 21.5 Vol % 18.1 Vol % (12.0-20.0) (12.0-20.0) Arterial Blood 1.1 % (0-4) 1.7 % (0-4) Carboxyhemoglobin Arterial Blood Methemoglobin 1.0 % (0-2) 1.5 % (0-2) Blood Gas Hemoglobin 15.2 G/DL 13.7 G/DL (12.0-16.0) (12.0-16.0) Oxygen Delivery Device OR NASAL CANNULA Blood Gas Ventilator Setting SEE OR CHART Blood Gas Inspired Oxygen 60 % Blood Gas Liter Flow 4 L/M Imaging CT abd/pelvis: Small bowel obstruction with right lower quadrant transition point Objective Remarks GENERAL: Well-developed, well-nourished, in mild distress due to postop pain. Alert and oriented HEENT: Head is normocephalic atraumatic Pupils equal round reactive to light. Oral mucosa is dry lips crusted NECK: Supple without any masses. Trachea midline no deviation. CVP 4-5 CARDIAC: Regular rhythm, regular rate. S1/S2 are heard. No murmurs gallops or rubs. LUNGS: Clear to auscultation bilaterally. No wheeze, rhonchi or rales. No use of accessory muscles. ABDOMEN: Soft, distended, tender in all quadrants. Midline laparotomy incision dressing intact. Single JANE drain with sanguinous output EXTREMITIES: No edema, pulses are equal bilaterally, but weak. No cyanosis or clubbing NEUROLOGY: Patient is alert awake oriented. Follows commands no focal deficits A/P Assessment and Plan NEURO: Postop pain Daily alcohol use -Morphine for pain control, Zofran for nausea vomiting -Ativan if needed for alcohol withdrawal and agitation. Supplement thiamine. RESP: Prior tobacco use -Nasal cannula oxygen -DuoNeb every 6 hours and when necessary -Aggressive pulmonary toilet, incentive spirometry, Acapella CV: Septic and hypovolemic shock History of hypertension -Continue aggressive fluid resuscitation. -Received 4 L of crystalloids in the OR, additional 4.5 L boluses post op with improving urine output -Continue normal saline at 150 ML per hour, trend lactic acid, monitor CVP -CVP has improved from 1 to 4-5 -Levophed to keep map above 65, wean to DC keeping MAP >65 GI: Small bowel obstruction s/p Laparoscopic lysis of adhesions, followed by exploratory laparotomy and small bowel decompression through enterostomy -Postop wound management per Dr. Enriquez -Keep nothing by mouth, NG tube to intermittent wall suction -Empiric Zosyn. Follow up on cultures -No evidence of bowel ischemia per Dr. Enriquez : Acute kidney failure -Acute kidney injury secondary to ATN from septic shock -Nephrology consulted no indication for emergency dialysis but may need dialysis if creatinine and renal function not improving -Repeat CMP at 10 PM, and 5AM ID: Severe sepsis/septic shock -Started empiric Zosyn renally adjusted dose. Blood cultures 2 have been sent , follow up HEME: -Monitor CBC, CMP, coags ENDO: Hypokalemia Mild hypocalcemia -Electrolyte replacement as needed PROPH: -Bilateral lower extremity SCDs. Start chemical DVT prophylaxis when cleared by general surgery (wait 24 hours post op per Dr. Enriquez). IV Protonix for GI prophylaxis LINES: -L subclavian central line placed in OR 01/07/17 Overall impression: Elderly gentleman with small bowel obstruction complicated by shock and acute renal failure. Remains critically ill and is on Levophed, even though some parameters are improving. Continue ICU care CC time 30 min Jacque Angela MD Jan 08, 2017 01:53
[2017-01-08] MEDS: PIPERACIL-TAZO 2.25 GM PREMIX 50 ML IV SCH ×4 (02:00→22:22)
[2017-01-08] MEDS: MORPHINE SULFATE 4 MG/ML INJ IV PUSH PRN ×2 (03:01→22:23)
[2017-01-08 05:19] LABS: AUTOMATED NEUTROPHIL # 7.8 TH/MM3 (1.8-7.7); BASOPHIL % 0.2 % (0.0-2.0); HEMATOCRIT 37.3 % (39.0-51.0); HEMO FLAGS DIFF FINAL; LYMPH % 4.3 % (9.0-44.0); LYMPHOCYTE # 0.4 TH/MM3 (1.0-4.8); MEAN CELL VOLUME 94.4 FL (80.0-100.0); MEAN CORPUSCULAR HEMOGLOBIN 31.4 PG (27.0-34.0); MEAN CORPUSCULAR HGB CONC 33.2 % (32.0-36.0); MONO % 6.9 % (0.0-8.0); NEUT % 88.6 % (16.0-70.0); PLATELET COUNT 148 TH/MM3 (150-450); RED BLOOD COUNT 3.96 MIL/MM3 (4.50-5.90); RED CELL DISTRIBUTION WIDTH 12.6 % (11.6-17.2); WHITE BLOOD COUNT 8.8 TH/MM3 (4.0-11.0)
[2017-01-08] MEDS: RESP: ALBUTEROL 2.5 MG/IPRATROPIUM 0.5 MG NEB (SCH) NEB ×3 (05:44→22:28)
[2017-01-08 05:45] LABS: BICARBONATE 29.3 MEQ/L (21.0-32.0); CALCIUM-PROTEIN CORRECTED 7.7 MG/DL (8.5-10.1); POTASSIUM 3.7 MEQ/L (3.5-5.1); TOTAL BILIRUBIN ADULT 0.6 MG/DL (0.2-1.0)
[2017-01-08] MEDS: SODIUM CHLOR 0.45% 1000 ML INJ 1,000 ML IV SCH ×3 (06:00→22:00)
--- NOTE | 2017-01-08 07:35 | RADRPT ---
EXAM DATE/TIME: 01/08/2017 06:33 [facility] COMPARISON: CHEST SINGLE AP, January 07, 2017, 17:01. INDICATIONS : Shortness of breath. MEDICAL HISTORY : Hypertension. SURGICAL HISTORY : None. ENCOUNTER: Subsequent ACUITY: 4 - 6 days PAIN SCORE: Non-responsive. LOCATION: Bilateral chest FINDINGS: A single view of the chest demonstrates left central line severe vena cava. NG enters stomach. Mild b asilar airspace disease. No significant effusion. No pneumothorax. CONCLUSION: 1. NG enters stomach. A central line in superior vena cava. Mild basilar airspace disease. Eric Patel MD on January 08, 2017 at 7:33 Board Certified Radiologist. This report was verified electronically.
--- NOTE | 2017-01-08 08:37 | RADRPT ---
EXAM DATE/TIME: 01/08/2017 07:43 [facility] COMPARISON: No previous studies available for comparison. INDICATIONS : Increased Bun and Creatinine. MEDICAL HISTORY : Hypertension. Hypercholesterolemia. Gastroesophageal reflux disease. Chronic ki dney disease. SURGICAL HISTORY : Hemicolectomy. 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 Trace free fluid a djacent to left kidney. No hydronephrosis. Bladder is emptied and not well-visualized. CONCLUSION: No acute findings. No hydronephrosis. Trace free fluid near left kidney. Eric Patel MD on January 08, 2017 at 8:33 Board Certified Radiologist. This report was verified electronically.
[2017-01-08] MEDS: THIAMINE INJ 100 MG in SODIUM CHLORIDE 0.9% INJ 100 ML IV SCH (09:51)
[2017-01-08] MEDS: SODIUM CHLORIDE 0.9% FLUSH 5 ML FLUSH FLUSH SCH ×2 (09:52→22:24)
--- NOTE | 2017-01-08 11:25 | HHI.PR ---
Subjective Subjective Notes awake, alert, feels better than yesterday. No flatus or Bm, wants suppository. Objective Vitals/I&O Vital Signs Date Time Temp Pulse Resp B/P Pulse Ox O2 Delivery O2 Flow Rate FiO2 01/08/17 10:00 104 01/08/17 08:45 96 Nasal Cannula 4.00 01/08/17 08:00 98.1 21 127/61 Labs Laboratory Tests Test 01/07/17 01/07/17 01/07/17 01/07/17 14:05 16:20 18:28 18:40 Hemoglobin 14.2 14.8 Hematocrit 42.4 43.5 Blood Gas Puncture Site ART LINE ART LINE Blood Gas Patient Temperature 98.6 98.6 Blood Gas HCO3 29 28 Blood Gas Base Excess 4.6 3.8 Blood Gas Oxygen Saturation 97 93 Arterial Blood pH 7.45 7.42 Arterial Blood Partial 42 43 Pressure CO2 Arterial Blood Partial 285 91 Pressure O2 Arterial Blood Oxygen Content 21.5 18.1 Arterial Blood 1.1 1.7 Carboxyhemoglobin Arterial Blood Methemoglobin 1.0 1.5 Blood Gas Hemoglobin 15.2 13.7 Oxygen Delivery Device OR NASAL CANNULA Blood Gas Ventilator Setting SEE OR CHART Blood Gas Inspired Oxygen 60 White Blood Count 4.1 Red Blood Count 4.68 Mean Corpuscular Volume 93.0 Mean Corpuscular Hemoglobin 31.7 Mean Corpuscular Hemoglobin 34.0 Concent Red Cell Distribution Width 12.3 Platelet Count 255 Mean Platelet Volume 8.1 Sodium Level 144 Potassium Level 3.5 Chloride Level 96 Carbon Dioxide Level 30.2 Anion Gap 18 Blood Urea Nitrogen 76 Creatinine 5.90 Estimat Glomerular Filtration 9 Rate Random Glucose 142 Calcium Level 7.4 Protein Corrected Calcium 7.8 Total Protein 6.3 Lactic Acid Level 1.8 Blood Gas Liter Flow 4 Test 01/07/17 01/08/17 21:59 05:00 Sodium Level 146 149 Potassium Level 3.1 3.7 Chloride Level 103 110 Carbon Dioxide Level 33.1 29.3 Anion Gap 10 10 Blood Urea Nitrogen 69 57 Creatinine 4.60 3.37 Estimat Glomerular Filtration 12 17 Rate Random Glucose 152 157 Calcium Level 6.8 6.8 Protein Corrected Calcium 7.7 7.7 Magnesium Level 1.8 Total Bilirubin 0.8 0.6 Aspartate Amino Transf 17 18 (AST/SGOT) Alanine Aminotransferase 16 18 (ALT/SGPT) Alkaline Phosphatase 41 41 Total Protein 5.4 5.4 Albumin 2.6 2.4 White Blood Count 8.8 Red Blood Count 3.96 Hemoglobin 12.4 Hematocrit 37.3 Mean Corpuscular Volume 94.4 Mean Corpuscular Hemoglobin 31.4 Mean Corpuscular Hemoglobin 33.2 Concent Red Cell Distribution Width 12.6 Platelet Count 148 Mean Platelet Volume 7.4 Neutrophils (%) (Auto) 88.6 Lymphocytes (%) (Auto) 4.3 Monocytes (%) (Auto) 6.9 Eosinophils (%) (Auto) 0.0 Basophils (%) (Auto) 0.2 Neutrophils # (Auto) 7.8 Lymphocytes # (Auto) 0.4 Monocytes # (Auto) 0.6 Eosinophils # (Auto) 0.0 Basophils # (Auto) 0.0 CBC Comment DIFF FINAL Differential Comment Date/Time Procedure Status Source Growth 01/07/17 22:04 Aerobic Blood Culture - Preliminary Resulted Blood Peripheral NO GROWTH IN 1 DAY 01/07/17 22:04 Anaerobic Blood Culture - Preliminary Resulted Blood Peripheral NO GROWTH IN 1 DAY Cardiovascular: Regular Lungs: Clear Abdomen: Other (SAMIR dressing intact with small amount of dried bloody drainage inferiorly. JANE drain draining yellow serous fluid.), Post-op tenderness , BS normal Extremities: No edema, Perfused, SCD's on A/P Assessment and Plan POD 1 exp lap, adhesiolysis. Plan clear sips, dulcolax suppository. transfer requested by medicine teacher. Bob Mistry MD Jan 08, 2017 11:25
[2017-01-08] MEDS ORDERED: BISACODYL 10 MG SUPP RECTAL ONE (11:30)
--- NOTE | 2017-01-08 15:29 | MB ---
cc: ELISEO FERRARO MD DATE OF CONSULTATION: 01/08/2017. REASON FOR CONSULTATION: Elevated BUN and creatinine for evaluation. HISTORY OF PRESENT ILLNESS: This is a 86-year-old male with past medical history of hypertension, hyperlipidemia, gastroesophageal reflux disease, history of colon resection who was admitted with abdominal pain and distension. I was called to see the patient because of elevated BUN and creatinine. The patient had a creatinine of 1.88 on presentation and it has gone up to 5.9, and now it is improving. The patient has been diagnosed with small bowel obstruction and underwent laparoscopic lysis of adhesions followed by exploratory laparotomy and small bowel decompensation. Throughout it seems like his blood pressure stays on the lower side but it is better now. It has gone down with systolic the 70s; this was yesterday evening. The patient has been nonoliguric and passing urine and has had some abdominal discomfort but denies any shortness of breath. No chest pain. He denies any previous history of renal disease and his creatinine was 1.8 on presentation. PAST MEDICAL HISTORY: 1. Hypertension. 2. Hyperlipidemia. 3. History of renal stone. 4. Diverticulosis. 5. History of renal transplant. 6. Chronic kidney disease. PAST SURGICAL HISTORY: 1. History of colon resection. 2. Kidney transplant. 3. Low back surgery. 4. Just had a laparotomy. REVIEW OF SYSTEMS: Denies any headache, dizziness or blurring of vision. No shortness of breath. No chest pain. He has mild abdominal discomfort and started taking some liquids. No history of diarrhea. No dysuria, hematuria or difficulty passing urine. SOCIAL HISTORY: The patient is . He stopped smoking more than 20 years ago. He is drinking alcohol almost every day but not in large amount. FAMILY HISTORY: Family history is noncontributory. ALLERGIES: NALFON. MEDICATIONS: Currently he is on the following medications: 1. IV fluids normal saline at 125/hour. 2. Thiamine 100 milligrams IV daily. 3. DuoNeb one ampule nebulizer. 4. Protonix 40 milligrams q. 24 hours. 5. Zosyn 2.25 grams IV q. 6 hours. 6. Zofran as needed. 7. Narcan as needed. PHYSICAL EXAMINATION: GENERAL: On examination, the patient is awake and alert and in no acute distress. VITAL SIGNS: His last blood pressure was 110/61, temperature is 98.3, oxygen saturation is 95% to 96% on four liters nasal cannula. HEAD, EYES, EARS, NOSE, THROAT: The pupils are equal and reacting to light. Nonicteric sclerae. Conjunctivae are pale. NECK: The neck is supple. JVD is not elevated. LUNGS: The patient has bilateral decreased air entry with occasional wheezing. HEART: S1 and S2 regular rhythm. ABDOMEN: Abdomen is distended, soft and lax. Bowel sounds positive. EXTREMITIES: He has mild edema in the legs. INVESTIGATIONS: White blood cell count is 8.8, hemoglobin 12.4, platelet count 148,000, neutrophils 80.6%. Sodium 149, potassium 3.7, chloride 110, bicarbonate 29.3, BUN 57, creatinine 3.3, calcium-corrected7.7, AST and ALT normal, total protein is 5.4 with albumin of 2.4. Alkaline phosphatase is 41. Urinalysis showing protein trace. IMAGING STUDIES: The patient had an ultrasound of the kidneys done which shows both kidneys look normal. There is no hydronephrosis. Chest x-ray was done which shows NG tube in the stomach. CT scan of the abdomen and pelvis was done on January 05 with IV contrast and shows small bowel obstruction. ASSESSMENT AND PLAN: 1. Acute kidney injury. 2. Small bowel obstruction post laparotomy. 3. History of hypertension and hypotension now. 4. Shock status. 5. Hypocalcemia and hypoalbuminemia. The patient has elevated BUN and creatinine. Most likely he has acute tubular necrosis because of the hypotension. There is a possibility of contrast nephropathy since he had contrast study done on the . At present, the patient is nonoliguric and is passing good urine. BUN and creatinine is coming down. Continue the antibiotic and the IV fluids. Avoid any nephrotoxins. Follow the urine output and BUN and creatinine. I will check the urine sodium and osmolality and urine for eosinophils. Thank you for the consultation. I will follow the patient while he is in the hospital. MD JUJU Hawkins/JOLANTA /2:30 PM /3:05 PM
--- NOTE | 2017-01-08 18:10 | HHI.CCPN ---
Subjective Remarks/Hospital Course 86-year-old male with history of hypertension, hyperlipidemia, gastroesophageal reflux, history of colon resection secondary to diverticulitis who presented to hospital because of abdominal pain and distention. Starting one day prior to admission his abdomen was getting distended and had severe pain. Workup done in the emergency department and imaging showed acute small bowel obstruction with right lower quadrant transition point. General surgery Dr. Enriquez was consulted. Initially patient had a BUN/creatinine of 36 and 1.8 on the day of admission 01/05/17. 01/06 creatinine increased to 2.2 and today a.m. it was 5.05. Today patient underwent diagnostic laparoscopy, laparoscopic lysis of adhesions, followed by exploratory laparotomy and small bowel decompression through enterostomy. According to Dr. Enriquez small bowel was distended and edematous, he perform an enterostomy and suctioned out about 1.4 L of fluid to decompress the small bowel. Prior to OR patient received 1 L of crystalloid and in the OR patient received additional 4 L crystalloid. EBL 200 ml and UO was 100 ml for 2 hour surgery. Postoperative patient was transferred to PACU and repeat labs showed creatinine of 5.9. Patient became increasingly hypotensive with map of 50. [facility] was consulted. On my evaluation in PACU patient is alert awake oriented moderate distress due to pain. Patient's mucosa dry and his CVP is only one. I have ordered additional 3 L of fluid boluses. I have also ordered Levophed which had been started and currently is at 10 mics per minute. Lactic acid and blood culture is pending at this time. Urine output is also diminishing last one hour urine output is only 20 mL. SUBJ 01/08/17: Patient remains on 3 mcg/m of Levophed down from 10 mcg/m. Received total 4.5 L normal saline postop. His urine output has significantly improved, making 100-150 ML per hour, with aggressive fluid resuscitation. At 10 PM creatinine has improved to 4.6 from 5.9 earlier. His lactic acid was normal. 01/08 0800 hours: Continued improved urine output with improvement in severe KELSEY. Demand for vasopressor has improved. He continued to breathe comfortably. CXR clear. Objective Vital Signs Date Time Temp Pulse Resp B/P Pulse Ox O2 Delivery O2 Flow Rate FiO2 01/08/17 14:00 98 3/18/17 12:00 98.3 18 110/61 95 01/08/17 08:45 Nasal Cannula 4.00 Intake and Output 01/07/17 01/07/17 01/08/17 08:00 16:00 00:00 Intake Total 0 ml 0 ml 17515 ml Output Total 300 ml 675 ml 1985 ml Balance -300 ml -675 ml 8214 ml Result Diagram: 01/08/17 0500 01/08/17 0500 Other Results Laboratory Tests Test 01/07/17 18:40 Blood Gas Puncture Site ART LINE Blood Gas Patient Temperature 98.6 Blood Gas HCO3 28 mmol/L (22-26) Blood Gas Base Excess 3.8 mmol/L (-2-2) Blood Gas Oxygen Saturation 93 % (90-100) Arterial Blood pH 7.42 (7.380-7.420) Arterial Blood Partial 43 mmHg (38-42) Pressure CO2 Arterial Blood Partial 91 mmHg Pressure O2 (61-120) Arterial Blood Oxygen Content 18.1 Vol % (12.0-20.0) Arterial Blood 1.7 % (0-4) Carboxyhemoglobin Arterial Blood Methemoglobin 1.5 % (0-2) Blood Gas Hemoglobin 13.7 G/DL (12.0-16.0) Oxygen Delivery Device NASAL CANNULA Blood Gas Liter Flow 4 L/M Imaging CT abd/pelvis: Small bowel obstruction with right lower quadrant transition point Objective Remarks GENERAL: Elderly man HEENT: Head is normocephalic atraumatic. NECK: Supple without any masses. Trachea midline no deviation. No airway obstruction or stridor. CARDIAC: Regular rhythm, regular rate. S1/S2 are heard. No murmurs gallops or rubs. LUNGS: Clear, no wheezes or crackles. No use of accessory muscles. ABDOMEN: Soft, distended, tender in all quadrants. Midline laparotomy incision dressing intact. Single JANE drain with sanguinous output. Normal postsurgical. EXTREMITIES: No edema, pulses are equal bilaterally, but weak. No cyanosis or clubbing. Warm, well perfused. NEUROLOGY: O X 3, conversant Follows commands no focal deficits A/P Assessment and Plan NEURO: Postop pain Daily alcohol use -Morphine for pain control, Zofran for nausea vomiting -Ativan if needed for alcohol withdrawal and agitation. Supplement thiamine. RESP: Prior tobacco use -Nasal cannula oxygen -DuoNeb every 6 hours and when necessary -Aggressive pulmonary toilet, incentive spirometry, Acapella CV: Septic and hypovolemic shock History of hypertension -Continue aggressive fluid resuscitation. -Received 4 L of crystalloids in the OR, additional 4.5 L boluses post op with improving urine output -Continue normal saline at 150 ML per hour, trend lactic acid, monitor CVP -CVP has improved from 1 to 4-5 -Levophed to keep map above 65, wean to DC keeping MAP >65 GI: Small bowel obstruction s/p Laparoscopic lysis of adhesions, followed by exploratory laparotomy and small bowel decompression through enterostomy -Postop wound management per Dr. Enriquez -Keep nothing by mouth, NG tube to intermittent wall suction -Empiric Zosyn. Follow up on cultures -No evidence of bowel ischemia per Dr. Enriquez -NG to LIS : Acute kidney failure -Acute kidney injury secondary to ATN from septic shock -Nephrology consulted no indication for emergency dialysis but may need dialysis if creatinine and renal function not improving -Repeat CMP at 10 PM, and 5AM. Daily. ID: Severe sepsis/septic shock -Started empiric Zosyn renally adjusted dose. Blood cultures 2 have been sent , follow up HEME: -Monitor CBC, CMP, coags ENDO: Hypokalemia Mild hypocalcemia -Electrolyte replacement as needed PROPH: -Bilateral lower extremity SCDs. Start chemical DVT prophylaxis when cleared by general surgery (wait 24 hours post op per Dr. Enriquez). IV Protonix for GI prophylaxis LINES: -L subclavian central line placed in OR 01/07/17 Overall impression: Elderly gentleman immediately s/p lysis of adhesions for small bowel obstruction, complicated by preoperative shock and acute renal failure. Remains critically ill this morning requiring ongoing fluid resuscitation and electrolyte changes. He has improved from last night after Dr. Angela's aggressive resuscitation. Will watch carefully for respiratory issues. Critical Care 38 mins Misha Smith MD Jan 08, 2017 18:10
[2017-01-08] MEDS: PANTOPRAZOLE SODIUM 40 MG VIAL IV PUSH SCH (22:22)
[2017-01-09] VITALS (8 sets, daily range): BP systolic 137–144; BP diastolic 67–77; PULSE 86–95; RESP 17–18; TEMP 97.3–99.2; O2SAT 92–96
[2017-01-09] MEDS: PIPERACIL-TAZO 2.25 GM PREMIX 50 ML IV SCH ×4 (01:51→20:42)
[2017-01-09] MEDS: RESP: ALBUTEROL 2.5 MG/IPRATROPIUM 0.5 MG NEB (SCH) NEB ×4 (03:27→21:27)
[2017-01-09] MEDS: SODIUM CHLOR 0.45% 1000 ML INJ 1,000 ML IV SCH ×3 (06:21→22:00)
[2017-01-09 07:05] LABS: BICARBONATE 28.5 MEQ/L (21.0-32.0); MAGNESIUM 2.1 MG/DL (1.5-2.5); POTASSIUM 3.4 MEQ/L (3.5-5.1)
--- NOTE | 2017-01-09 08:17 | HHI.PR ---
Subjective Remarks Pt states he feels about the same. Feels the pressure as he hasn't been able to pass gas. No pain at this time. would like to get out of bed and try sitting on the toilet to see if he can start passing flatus. No nausea or vomiting. SOB improved. No CP Objective Vitals Vital Signs Date Time Temp Pulse Resp B/P Pulse Ox O2 Delivery O2 Flow Rate FiO2 01/09/17 03:29 94 Nasal Cannula 3.00 01/08/17 23:00 20 01/08/17 22:29 96 Nasal Cannula 3.00 01/08/17 22:15 113/55 01/08/17 21:00 96 01/08/17 21:00 95 Nasal Cannula 3.00 30 01/08/17 20:00 98.3 93 18 127/65 95 01/08/17 14:00 98 01/08/17 12:00 104 01/08/17 12:00 98.3 100 18 110/61 95 01/08/17 10:00 104 01/08/17 08:45 96 Nasal Cannula 4.00 I/O 01/08/17 01/08/17 01/08/17 01/09/17 01/09/17 01/09/17 07:00 15:00 23:00 07:00 15:00 23:00 Intake Total 2310 ml 1452 ml 2189 ml Output Total 1305 ml 2050 ml 1620 ml 1040 ml 450 ml Balance 1005 ml -598 ml -1620 ml 1149 ml -450 ml Intake Oral 45 ml 240 ml 360 ml IV Total 2265 ml 1212 ml 1829 ml Output Urine Total 1005 ml 1100 ml 700 ml 250 ml Gastric Drainage Total 200 ml 850 ml 900 ml 700 ml 450 ml Drainage Total 100 ml 100 ml 20 ml 90 ml # Bowel Movements 0 0 Result Diagram: 01/08/17 0500 01/09/17 0544 Imaging Last Impressions Renal Ultrasound 01/08/17 0000 Signed Impressions: Service Date/Time: Sunday, January 08, 2017 07:43 - CONCLUSION: No acute findings. No hydronephrosis. Trace free fluid near left kidney. Eric Patel MD Chest X-Ray 01/08/17 0000 Signed Impressions: Service Date/Time: Sunday, January 08, 2017 06:33 - CONCLUSION: 1. NG enters stomach. A central line in superior vena cava. Mild basilar airspace disease. Eric Patel MD Abdomen X-Ray 01/06/17 0600 Signed Impressions: Service Date/Time: December 06:05 - CONCLUSION: Dilated air-filled small bowel with paucity of gas in the colon. Findings are again suspicious for small bowel obstruction. Jung Art MD Abdomen/Pelvis CT 01/05/17 1747 Signed Impressions: Service Date/Time: Thursday, January 05, 2017 18:56 - CONCLUSION: 1. Wall bowel obstruction is noted with transition point in the right lower quadrant. Jayden Youssef MD Objective Remarks GENERAL: Well-developed, well-nourished, in no acute distress. alert and orientated CARDIAC: Regular rhythm, regular rate. S1/S2 are heard. No murmurs LUNGS: Clear to auscultation bilaterally. No wheeze. No use of accessory muscles on inspiration or expiration. ABDOMEN: distended, dressing in place d/c/i. drain in place. bowel sound hypoactive. EXTREMITIES: No edema, pulses are equal bilaterally. moves extremities NEUROLOGY: Mood and affect appear appropriate. Cranial nerves II through XII grossly intact. A/P Problem List: (1) Small bowel obstruction ICD Code: K56.69 Status: Acute (2) Abdominal pain ICD Code: R10.9 Status: Acute (3) Hypertension ICD Code: I10 Status: Acute (4) Hyperlipidemia ICD Code: E78.5 Status: Acute (5) GERD (gastroesophageal reflux disease) ICD Code: K21.9 Status: Acute Assessment and Plan Acute small bowel obstruction with presenting abdominal pain distention: Increased risk factors from previous abdominal surgery. CT scan showed small bowel obstruction with transition zone. Gen. surgery following. Pt is s/p Laparoscopic lysis of adhesions, followed by exploratory laparotomy and small bowel decompression through enterostomy POD#2 -Postop wound management per Dr. Enriquez. NG tube in place. Continue pain control. Continue IV fluids. blood cx called to RN this morning showing growing gram pos cocci pairs and clusters and pleomorphic gram pos rods. Pt on emperic zosyn. f/u. --Hypotension: Post op, pt became severely hypotensive and required levophed Gtt. Pt was transferred to the ICU and was under the care of the critical care team: Received 4 L of crystalloids in the OR, additional 4.5 L boluses post op with improving urine output. Continue NS@125ml/hr. Acute renal failure: now improving. nephrology following. Suspected ATN from hypotension. No urine eosinophils. Continue to monitor I's and O's. Continue IV fluids, monitor renal function closely. Per and patient he has no prior hx of renal transplant or kidney failure. --Prior tobacco use -Nasal cannula oxygen -DuoNeb every 6 hours and when necessary -Aggressive pulmonary toilet, incentive spirometry, Acapella Daily alcohol use -Morphine for pain control, Zofran for nausea vomiting -Ativan if needed for alcohol withdrawal and agitation. Supplement thiamine. Hyperlipidemia: home med resumed. hold BP meds for now. DVT prevention: Sequential compression devices. start anticoagulation per GS. Encourage ambulation. Discharge Planning encourage out of bed and ambulation as tolerated. d/c pending further workup and clinical improvement. Problem Qualifiers (1) Abdominal pain: Qualified Code: R10.84 - Generalized abdominal pain (2) Hypertension: Qualified Code: I15.9 - Secondary hypertension (3) Hyperlipidemia: Qualified Code: E78.5 - Hyperlipidemia, unspecified hyperlipidemia type Polly Lira MD Jan 09, 2017 08:17
[2017-01-09] MEDS ORDERED: DOCUSATE SODIUM 100 MG CAP PO PRN (09:15)
[2017-01-09] MEDS: THIAMINE INJ 100 MG in SODIUM CHLORIDE 0.9% INJ 100 ML IV SCH (09:16)
[2017-01-09] MEDS: SODIUM CHLORIDE 0.9% FLUSH 5 ML FLUSH FLUSH SCH ×2 (09:17→20:42)
--- NOTE | 2017-01-09 11:11 | HHI.NPPN ---
Subjective General Problems: Anemia Renal Failure: Chronic, Acute, Stage III History of Present Illness 6-year-old male with past medical history of hypertension, hyperlipidemia, gastroesophageal reflux disease, history of colon resection who was admitted with abdominal pain and distension. I was called to see the patient because of elevated BUN and creatinine. The patient had a creatinine of 1.88 on presentation and it has gone up to 5.9. Additional Remarks Patient is alert, sitting on chair, with GT and tolerating liquids. Review of Systems General Constitutional: Fatigue Objective Data Data 01/08/17 01/09/17 19:00 07:00 Intake Total 1452 ml 2189 ml Output Total 2070 ml 2640 ml Balance -618 ml -451 ml Intake Oral 240 ml 360 ml IV Total 1212 ml 1829 ml Output Urine Total 1100 ml 950 ml Gastric Drainage Total 850 ml 1600 ml Drainage Total 120 ml 90 ml # Bowel Movements 0 Vital Signs Date Time Temp Pulse Resp B/P Pulse Ox O2 Delivery O2 Flow Rate FiO2 01/09/17 08:26 92 Nasal Cannula 3.00 01/09/17 08:00 98.3 95 17 137/69 95 01/09/17 03:29 94 Nasal Cannula 3.00 01/08/17 23:00 20 01/08/17 22:29 96 Nasal Cannula 3.00 01/08/17 22:15 113/55 01/08/17 21:00 96 01/08/17 21:00 95 Nasal Cannula 3.00 30 01/08/17 20:00 98.3 93 18 127/65 95 01/08/17 14:00 98 01/08/17 12:00 104 01/08/17 12:00 98.3 100 18 110/61 95 -: 01/08/17 0500 01/09/17 0544 Physical Exam General Appearance: No Acute Distress, Comfortable Eyes Eye Exam: Pupils Equal Throat Throat Exam: Oral Mucosa [place] [employer] & Moist Pulmonary Resp Exam: Breath Sounds Equal, No Distress, Decreased Bases Cardiology CV Exam: Regular, Normal Sinus Rhythm Gastrointestinal/Abdomen GI Exam: Soft, Non-Tender, Bowel Sounds Present, Distended Extremeties Extremities Exam: Trace Edema Neurologic Neuro Exam: Alert, Awake, Oriented Psychiatric Psych Exam: Appropriate Responses Assessment/Plan Assessment Summary: KELSEY/Acute Renal Failure, Dehydration, CKD Stage III Problem List: (1) Hyperlipidemia (2) Small bowel obstruction (3) GERD (gastroesophageal reflux disease) (4) Hypertension (5) Acute kidney injury Plan Patient has good urine out put, BP is now stable. Creatinine is improving. Tolerating liquids, surgery following. Urine Na. was normal and Eosinophils negative. Avoid Nephrotoxins. and follow BMP. Problem Qualifiers (1) Hyperlipidemia: Qualified Code: E78.5 - Hyperlipidemia, unspecified hyperlipidemia type (2) Hypertension: Qualified Code: I15.9 - Secondary hypertension Wendy Garcia MD Jan 09, 2017 11:11
--- NOTE | 2017-01-09 12:18 | HHI.PR ---
Subjective Subjective Notes DAILY PROGRESS NOTE FOR SURGICAL ATTENDING, DR. ERIC ELLINGTON Patient feels like he is progressing Ambulating in room No flatus Objective Vitals/I&O 01/08/17 01/08/17 01/09/17 15:00 23:00 07:00 Intake Total 1452 ml 2189 ml Output Total 2050 ml 1620 ml 1040 ml Balance -598 ml -1620 ml 1149 ml Intake Oral 240 ml 360 ml IV Total 1212 ml 1829 ml Output Urine Total 1100 ml 700 ml 250 ml Gastric Drainage Total 850 ml 900 ml 700 ml Drainage Total 100 ml 20 ml 90 ml # Bowel Movements 0 0 Vital Signs Date Time Temp Pulse Resp B/P Pulse Ox O2 Delivery O2 Flow Rate FiO2 01/09/17 08:26 92 Nasal Cannula 3.00 01/09/17 08:00 98.3 95 17 137/69 01/08/17 21:00 30 Labs Laboratory Tests Test 01/08/17 01/09/17 15:37 05:44 Urine Eosinophils NONE SEEN Urine Osmolality 557 Urine Random Sodium 69 Sodium Level 148 Potassium Level 3.4 Chloride Level 109 Carbon Dioxide Level 28.5 Anion Gap 11 Blood Urea Nitrogen 39 Creatinine 1.63 Estimat Glomerular Filtration 40 Rate Random Glucose 103 Calcium Level 7.9 Phosphorus Level 2.4 Magnesium Level 2.1 Date/Time Procedure Status Source Growth 01/07/17 22:04 Aerobic Blood Culture - Preliminary Resulted Blood Peripheral Gram Positive Cocci Pleomorphic Gram Positive Rods 01/07/17 22:04 Anaerobic Blood Culture - Preliminary Resulted Blood Peripheral NO GROWTH IN 2 DAYS Radiology Last Impressions Renal Ultrasound 01/08/17 0000 Signed Impressions: Service Date/Time: Sunday, January 08, 2017 07:43 - CONCLUSION: No acute findings. No hydronephrosis. Trace free fluid near left kidney. Eric Patel MD Chest X-Ray 01/08/17 0000 Signed Impressions: Service Date/Time: Sunday, January 08, 2017 06:33 - CONCLUSION: 1. NG enters stomach. A central line in superior vena cava. Mild basilar airspace disease. Eric Patel MD Abdomen X-Ray 01/06/17 0600 Signed Impressions: Service Date/Time: December 06:05 - CONCLUSION: Dilated air-filled small bowel with paucity of gas in the colon. Findings are again suspicious for small bowel obstruction. Jung Art MD Abdomen/Pelvis CT 01/05/17 6827 Signed Impressions: Service Date/Time: Thursday, January 05, 2017 18:56 - CONCLUSION: 1. Wall bowel obstruction is noted with transition point in the right lower quadrant. Jayden Youssef MD Abdomen: Other, Post-op tenderness Narrative Exam Patient has sherif dressing functioning JANE in place Abdomen soft A/P Problem List: (1) Small bowel obstruction (2) Hypertension (3) Acute kidney injury (4) S/P exploratory laparotomy Assessment and Plan PO exp lap, adhesiolysis. NG tube in place 700 cc Plan liquids , dulcolax suppository. Attending Statement NOTE FOR SURGICAL ATTENDING, DR. ERIC ELLINGTON Operative note not transcribed yet . I attest that I had a [id number] encounter with the patient on the same day , and personally performed and documented my assessment and findings in the medical record. The following services were provided during this hospital visit: Chart data review, vital sign assessments/reviewing monitor data Review of consultations notes if present. Medication orders/review and/or management Ordering and/or reviewing lab tests Ordering and/or interpreting/reviewing x-rays and/or diagnostic studies Care of the patient and discussion of the patient with the care team Documentation time To help prompt me to consider important information that might be impacting today's encounter and assessment, information from prior notes written by myself or my colleagues may have been "brought forward/copy and pasted" into today's note. Problem Qualifiers (1) Hypertension: Qualified Code: I15.9 - Secondary hypertension Eric Ellington MD Jan 09, 2017 12:18
--- NOTE | 2017-01-09 17:57 | MP ---
cc: JARET ENRIQUEZ M.D. DATE OF SURGERY: 01/07/2017. PREOPERATIVE DIAGNOSIS: Persistent small bowel obstruction. POSTOPERATIVE DIAGNOSIS: Persistent small bowel obstruction. OPERATIVE PROCEDURE PERFORMED: 1. Diagnostic laparoscopy 2. Laparoscopic lysis of adhesions. 3. Exploratory laparotomy with decompression of small bowel and lysis of adhesions. ANESTHESIA: General endotracheal. SURGEON: Jaret Enriquez MD. ESTIMATED BLOOD LOSS: 200 mL. FLUIDS: 4000 mL crystalloid. COMPLICATIONS: None. DRAINS: Ruiz-Aden drain x1. SPECIMEN: None. FINDINGS: Small bowel obstruction secondary to adhesions. DESCRIPTION OF THE PROCEDURE IN DETAIL: The patient was taken to the operating room and placed on the operating table in the supine position. After an adequate level of general endotracheal anesthesia was achieved, the abdomen was prepped and draped in usual fashion. Time-out was taken confirming the correct patient, site and procedure to be performed. A location was chosen above the umbilicus for an incision. A 5 mm trocar was inserted with the camera, and under direct vision, the peritoneal cavity was entered uneventfully. The abdomen was insufflated and then visualized. A second 5 mm trocar was placed in the left midabdomen and entered the abdominal cavity under direct vision uneventfully. A third 5 mm trocar was placed in the right midabdomen and entered the abdominal cavity under direct vision uneventfully as well. At this point, bowel was manipulated and cloudy fluid was aspirated from the abdominal cavity. Dilated loops of small bowel were noted and an adhesion down in the pelvis on the left lower quadrant was noted; this was snipped loose, and at this point the abdomen was further evaluated. This appeared to be the major adhesion. Further smaller adhesions were noted in the small bowel and as the distal small bowel began to fill with fluid, the remainder of the small bowel was run with grasping forceps. There continued be some adhesions in the pelvis and at this point, decision was made to open the abdomen. The abdomen was opened in the midline through the patient's previous incision. Dissection was carried down through the fascia sharply and the peritoneal cavity entered uneventfully. The small bowel was then manipulated and adhesions were taken down sharply in the pelvis. Two small areas in the mesentery were repaired with 3-0 silk suture-ligature as there was a small amount of oozing from the mobilization. When this had been completed, the small bowel was tremendously dilated. Attempts were made to milk the contents back into the stomach but this was unsuccessful. At this point an enterotomy was made and the small bowel was decompressed both proximally and distally through this enterostomy. When this had been completed, the abdomen was able to be easily explored and no further pathology was noted; specifically, no evidence of malignancy was noted. The abdomen was irrigated with 2 liters of irrigation and a larger nasogastric tube was placed by anesthesia. The position was confirmed to be within the stomach by the undersigned. At this point, a Ruiz-Aden drain was brought in via a 5-mm trocar site in the right midabdomen and secured to the skin with a 3-0 nylon suture. The abdomen was closed with #1 PDS looped and the skin closed loosely with katherin. A SAMIR dressing was applied and the patient was extubated and taken back to the recovery room in stable condition. Sponge, needle and instrument counts were reported be correct x2. MD MARTY Woodruff/JCC /5:06 PM /5:50 PM
[2017-01-09] MEDS: MORPHINE SULFATE 4 MG/ML INJ IV PUSH PRN (20:41)
[2017-01-09] MEDS: PANTOPRAZOLE SODIUM 40 MG VIAL IV PUSH SCH (20:42)
[2017-01-10] VITALS (9 sets, daily range): BP systolic 137–174; BP diastolic 71–82; PULSE 85–109; RESP 17–20; TEMP 97–98.5; O2SAT 91–96
[2017-01-10] MEDS: PIPERACIL-TAZO 2.25 GM PREMIX 50 ML IV SCH ×4 (01:12→21:19)
[2017-01-10] MEDS: RESP: ALBUTEROL 2.5 MG/IPRATROPIUM 0.5 MG NEB (SCH) NEB ×4 (03:24→21:16)
[2017-01-10 05:04] LABS: AUTOMATED NEUTROPHIL # 7.1 TH/MM3 (1.8-7.7); BASOPHIL % 0.4 % (0.0-2.0); EOSINOPHIL # 0.1 TH/MM3 (0-0.4); EOSINOPHIL % 0.7 % (0.0-4.0); HEMATOCRIT 33.6 % (39.0-51.0); HEMO FLAGS DIFF FINAL; LYMPH % 7.7 % (9.0-44.0); LYMPHOCYTE # 0.7 TH/MM3 (1.0-4.8); MEAN CELL VOLUME 92.6 FL (80.0-100.0); MEAN CORPUSCULAR HEMOGLOBIN 31.9 PG (27.0-34.0); MEAN CORPUSCULAR HGB CONC 34.4 % (32.0-36.0); MONO % 6.9 % (0.0-8.0); NEUT % 84.3 % (16.0-70.0); PLATELET COUNT 160 TH/MM3 (150-450); RED BLOOD COUNT 3.63 MIL/MM3 (4.50-5.90); RED CELL DISTRIBUTION WIDTH 12.3 % (11.6-17.2); WHITE BLOOD COUNT 8.5 TH/MM3 (4.0-11.0)
[2017-01-10] MEDS: SODIUM CHLOR 0.45% 1000 ML INJ 1,000 ML IV SCH (05:49)
[2017-01-10 05:52] LABS: BICARBONATE 27.1 MEQ/L (21.0-32.0); POTASSIUM 3.2 MEQ/L (3.5-5.1)
[2017-01-10] MEDS: CITALOPRAM HYDROBROMIDE 20 MG TAB PO SCH (07:53)
[2017-01-10] MEDS: SODIUM CHLORIDE 0.9% FLUSH 5 ML FLUSH FLUSH SCH ×2 (07:54→21:00)
[2017-01-10] MEDS: PRAVASTATIN SOD 40 MG TAB PO SCH (07:54)
[2017-01-10] MEDS: THIAMINE INJ 100 MG in SODIUM CHLORIDE 0.9% INJ 100 ML IV SCH (07:54)
[2017-01-10] MEDS: POTASSIUM CHLOR 20 MEQ PREMIX 100 ML IV SCH ×2 (10:08→11:17)
--- NOTE | 2017-01-10 11:15 | HHI.PR ---
Subjective Remarks Follow up for SBO s/p Ex Lap. Mr. King is doing well. He is moving around more and reports less abdominal pain. He is not passing gas or has not had any BM yet. He remains in upbeat spirit. Objective Vitals Vital Signs Date Time Temp Pulse Resp B/P Pulse Ox O2 Delivery O2 Flow Rate FiO2 01/10/17 09:46 96 Nasal Cannula 3.00 01/10/17 08:00 98.4 86 17 149/82 91 01/10/17 07:52 Nasal Cannula 2.00 30 01/10/17 07:52 89 01/10/17 04:00 97.3 85 18 145/76 96 01/10/17 00:00 98.5 88 20 154/76 92 01/09/17 22:00 88 01/09/17 21:27 96 Nasal Cannula 3.00 01/09/17 20:00 Nasal Cannula 2.00 01/09/17 20:00 99.2 86 18 141/77 95 01/09/17 16:00 97.9 95 18 137/67 95 01/09/17 12:00 97.3 93 18 144/70 93 I/O 01/09/17 01/09/17 01/09/17 01/10/17 01/10/17 01/10/17 07:00 15:00 23:00 07:00 15:00 23:00 Intake Total 2189 ml 1340 ml 1105 ml 896 ml Output Total 1040 ml 1600 ml 870 ml 845 ml Balance 1149 ml -260 ml 235 ml 51 ml Intake Oral 360 ml 480 ml 120 ml 120 ml IV Total 1829 ml 860 ml 985 ml 776 ml Output Urine Total 250 ml 700 ml 300 ml 600 ml Gastric Drainage Total 700 ml 850 ml 500 ml 200 ml Drainage Total 90 ml 50 ml 70 ml 45 ml # Bowel Movements 0 0 0 0 Result Diagram: 01/10/17 0445 01/10/17 0445 Imaging Last Impressions Chest X-Ray 01/10/17 0000 Signed Impressions: Service Date/Time: Tuesday, January 10, 2017 21:22 - CONCLUSION: No acute disease. No significant change has occurred. Dylon Sesay MD Renal Ultrasound 01/08/17 0000 Signed Impressions: Service Date/Time: Sunday, January 08, 2017 07:43 - CONCLUSION: No acute findings. No hydronephrosis. Trace free fluid near left kidney. Eric Patel MD Abdomen X-Ray 01/06/17 0600 Signed Impressions: Service Date/Time: December 06:05 - CONCLUSION: Dilated air-filled small bowel with paucity of gas in the colon. Findings are again suspicious for small bowel obstruction. Jung Art MD Abdomen/Pelvis CT 01/05/17 1747 Signed Impressions: Service Date/Time: Thursday, January 05, 2017 18:56 - CONCLUSION: 1. Wall bowel obstruction is noted with transition point in the right lower quadrant. Jayden Youssef MD Objective Remarks GENERAL: AOX3, NAD. SKIN: Warm and dry. HEAD: Normocephalic. EYES: No scleral icterus. No injection or drainage. NECK: Supple, trachea midline. No JVD or lymphadenopathy. CARDIOVASCULAR: Regular rate and rhythm without murmurs, gallops, or rubs. RESPIRATORY: Breath sounds equal bilaterally. No accessory muscle use. GASTROINTESTINAL: Abdomen distended, hypoactive BS, non-tender to palpation. MUSCULOSKELETAL: No cyanosis, or edema. BACK: Nontender without obvious deformity. No CVA tenderness. Procedures 01/07/2017 OPERATIVE PROCEDURE PERFORMED: 1. Diagnostic laparoscopy 2. Laparoscopic lysis of adhesions. 3. Exploratory laparotomy with decompression of small bowel and lysis of adhesions. A/P Problem List: (1) Small bowel obstruction ICD Code: K56.69 Status: Acute (2) Abdominal pain ICD Code: R10.9 Status: Acute (3) Hypertension ICD Code: I10 Status: Acute (4) Hyperlipidemia ICD Code: E78.5 Status: Acute (5) GERD (gastroesophageal reflux disease) ICD Code: K21.9 Status: Acute Assessment and Plan Acute small bowel obstruction with presenting abdominal pain distention: Increased risk factors from previous abdominal surgery. CT scan showed small bowel obstruction with transition zone. Gen. surgery following. Pt is s/p Laparoscopic lysis of adhesions, followed by exploratory laparotomy and small bowel decompression through enterostomy on 01/07/2017. - Morphine for pain control, Zofran for nausea vomiting -Postop wound management per Dr. Enriquez. NG tube in place. Continue pain control. Continue IV fluids. blood cx called to RN this morning showing growing gram pos cocci pairs and clusters and pleomorphic gram pos rods. Patient is currently on Zosyn empirically. --Hypotension: Post op, pt became severely hypotensive and required levophed Gtt. Pt was transferred to the ICU and was under the care of the critical care team: Received 4 L of crystalloids in the OR, additional 4.5 L boluses post op with improving urine output. Currently blood pressure normotensive or slightly hypertensive. Currently on LR +KCL 125cc/hour. Acute renal failure: now improving. nephrology following. Suspected ATN from hypotension. Creatinine peaked to 5.90, improved to 1.11 on 01/10/2017. - Mild hypokalemia - KCL replacement ordered by surgery team. --Prior tobacco use -Nasal cannula oxygen -DuoNeb every 6 hours and when necessary -Aggressive pulmonary toilet, incentive spirometry, Acapella -Ativan if needed for alcohol withdrawal and agitation. Supplement thiamine. Full code. Ambulation. Problem Qualifiers (1) Abdominal pain: Qualified Code: R10.84 - Generalized abdominal pain (2) Hypertension: Qualified Code: I15.9 - Secondary hypertension (3) Hyperlipidemia: Qualified Code: E78.5 - Hyperlipidemia, unspecified hyperlipidemia type Alin Darby DO Jan 10, 2017 11:15
[2017-01-10] MEDS: POTASSIUM CHLORIDE INJ 20 MEQ in LACTATED RINGER'S 1000 ML INJ 1,000 ML IV SCH ×2 (11:17→20:05)
--- NOTE | 2017-01-10 12:33 | HHI.PR ---
Subjective Subjective Notes Resting in bed Wants to walk in room Wants to know when he can shower Admits to overdoing it with the popsicles Objective Vitals/I&O Vital Signs Date Time Temp Pulse Resp B/P Pulse Ox O2 Delivery O2 Flow Rate FiO2 01/10/17 09:46 96 Nasal Cannula 3.00 01/10/17 08:00 98.4 86 17 149/82 01/10/17 07:52 30 Labs Laboratory Tests Test 01/10/17 04:45 White Blood Count 8.5 Red Blood Count 3.63 Hemoglobin 11.6 Hematocrit 33.6 Mean Corpuscular Volume 92.6 Mean Corpuscular Hemoglobin 31.9 Mean Corpuscular Hemoglobin 34.4 Concent Red Cell Distribution Width 12.3 Platelet Count 160 Mean Platelet Volume 7.4 Neutrophils (%) (Auto) 84.3 Lymphocytes (%) (Auto) 7.7 Monocytes (%) (Auto) 6.9 Eosinophils (%) (Auto) 0.7 Basophils (%) (Auto) 0.4 Neutrophils # (Auto) 7.1 Lymphocytes # (Auto) 0.7 Monocytes # (Auto) 0.6 Eosinophils # (Auto) 0.1 Basophils # (Auto) 0.0 CBC Comment DIFF FINAL Differential Comment Sodium Level 144 Potassium Level 3.2 Chloride Level 108 Carbon Dioxide Level 27.1 Anion Gap 9 Blood Urea Nitrogen 27 Creatinine 1.11 Estimat Glomerular Filtration 63 Rate Random Glucose 93 Calcium Level 8.5 Date/Time Procedure Status Source Growth 01/07/17 22:04 Aerobic Blood Culture - Preliminary Resulted Blood Peripheral Gram Positive Cocci Pleomorphic Gram Positive Rods 01/07/17 22:04 Anaerobic Blood Culture - Preliminary Resulted Blood Peripheral NO GROWTH IN 3 DAYS Radiology Last Impressions Renal Ultrasound 01/08/17 0000 Signed Impressions: Service Date/Time: Sunday, January 08, 2017 07:43 - CONCLUSION: No acute findings. No hydronephrosis. Trace free fluid near left kidney. Eric Patel MD Chest X-Ray 01/08/17 0000 Signed Impressions: Service Date/Time: Sunday, January 08, 2017 06:33 - CONCLUSION: 1. NG enters stomach. A central line in superior vena cava. Mild basilar airspace disease. Eric Patel MD Abdomen X-Ray 01/06/17 0600 Signed Impressions: Service Date/Time: December 06:05 - CONCLUSION: Dilated air-filled small bowel with paucity of gas in the colon. Findings are again suspicious for small bowel obstruction. Jung Art MD Abdomen/Pelvis CT 01/05/17 2637 Signed Impressions: Service Date/Time: Thursday, January 05, 2017 18:56 - CONCLUSION: 1. Wall bowel obstruction is noted with transition point in the right lower quadrant. Jayden Youssef MD Cardiovascular: Regular Lungs: Clear Abdomen: Other (midline incision with SAMIR in place; JANE with SS drainage) Extremities: No edema A/P Problem List: (1) Small bowel obstruction (2) Hypertension (3) Acute kidney injury (4) S/P exploratory laparotomy Assessment and Plan 86 year old male with SBO; POD3 ex lap; BENJAMIN -Continue NGT to LIWS---okay to be off wall suction to ambulate in room and hallways -Sips and ice chips okay -PT eval and treat -OOB and mobilize--chair TID -DC Watkins Attending Note - Dr. Enriquez Abdomen still grossly distended; pt eating too many ice chips Asked about leaving today; explained that he may go home when his bowels are working Since this AM, pt pulled out NG and central line NG must be replaced, as pt. has no flatus or BM yet, and he is at risk for aspiration if he vomits. Needs peripheral IV access for now. The exam, history, and the medical decision-making described in the above note were completed with the assistance of the mid-level provider. I reviewed and agree with the findings presented. I attest that I had a [id number] encounter with the patient on the same day, and personally performed and documented my assessment and findings in the medical record. Problem Qualifiers (1) Hypertension: Qualified Code: I15.9 - Secondary hypertension Neeru Adam Jan 10, 2017 12:33 Jaret Enriquez MD Jan 10, 2017 20:53
[2017-01-10] MEDS ORDERED: BUPIVACAINE LIPOSOME PF 1.3% 20 ML VIAL ONE (12:43)
--- NOTE | 2017-01-10 17:04 | HHI.NPPN ---
Subjective General Problems: Anemia Renal Failure: Chronic, Acute, Stage III History of Present Illness 6-year-old male with past medical history of hypertension, hyperlipidemia, gastroesophageal reflux disease, history of colon resection who was admitted with abdominal pain and distension. I was called to see the patient because of elevated BUN and creatinine. The patient had a creatinine of 1.88 on presentation and it has gone up to 5.9. Additional Remarks Patient is alert, sitting on chair, clinically same, feeling better. Review of Systems General Constitutional: Fatigue Objective Data Data 01/09/17 01/10/17 19:00 07:00 Intake Total 1340 ml 2001 ml Output Total 1600 ml 1715 ml Balance -260 ml 286 ml Intake Oral 480 ml 240 ml IV Total 860 ml 1761 ml Output Urine Total 700 ml 900 ml Gastric Drainage Total 850 ml 700 ml Drainage Total 50 ml 115 ml # Bowel Movements 0 0 Vital Signs Date Time Temp Pulse Resp B/P Pulse Ox O2 Delivery O2 Flow Rate FiO2 01/10/17 16:00 97.0 98 18 174/79 92 01/10/17 12:00 97.8 86 18 150/77 94 01/10/17 09:46 96 Nasal Cannula 3.00 01/10/17 08:00 98.4 86 17 149/82 91 01/10/17 07:52 Nasal Cannula 2.00 30 01/10/17 07:52 89 01/10/17 04:00 97.3 85 18 145/76 96 01/10/17 00:00 98.5 88 20 154/76 92 01/09/17 22:00 88 01/09/17 21:27 96 Nasal Cannula 3.00 01/09/17 20:00 Nasal Cannula 2.00 01/09/17 20:00 99.2 86 18 141/77 95 -: 01/10/17 0445 01/10/17 0445 Physical Exam General Appearance: No Acute Distress, Comfortable Eyes Eye Exam: Pupils Equal Throat Throat Exam: Oral Mucosa [place] & Moist Pulmonary Resp Exam: Breath Sounds Equal, No Distress, Decreased Bases Cardiology CV Exam: Regular, Normal Sinus Rhythm Gastrointestinal/Abdomen GI Exam: Soft, Non-Tender, Bowel Sounds Present, Distended Extremeties Extremities Exam: Trace Edema Neurologic Neuro Exam: Alert, Awake, Oriented Psychiatric Psych Exam: Appropriate Responses Assessment/Plan Assessment Summary: KELSEY/Acute Renal Failure, Dehydration, CKD Stage III Problem List: (1) Hyperlipidemia (2) Small bowel obstruction (3) GERD (gastroesophageal reflux disease) (4) Hypertension (5) Acute kidney injury Plan Patient has good urine out put, BP is now stable. Tolerating liquids, surgery following. Urine Na. was normal and Eosinophils negative. Creatinine now 1.1, K was low and replaced. Avoid Nephrotoxins. Problem Qualifiers (1) Hyperlipidemia: Qualified Code: E78.5 - Hyperlipidemia, unspecified hyperlipidemia type (2) Hypertension: Qualified Code: I15.9 - Secondary hypertension Wendy Garcia MD Jan 10, 2017 17:04
[2017-01-10] MEDS: PANTOPRAZOLE SODIUM 40 MG VIAL IV PUSH SCH (21:19)
--- NOTE | 2017-01-10 21:42 | RADRPT ---
EXAM DATE/TIME: 01/10/2017 21:22 [facility] COMPARISON: CHEST SINGLE AP, January 08, 2017, 6:33. INDICATIONS : Shortness of breath. Congestion. MEDICAL HISTORY : Hypertension. SURGICAL HISTORY : None. ENCOUNTER: Subsequent ACUITY: 1 week PAIN SCORE: 0/10 LOCATION: Bilateral chest FINDINGS: A single view of the chest demonstrates the lungs to be symmetrically aerated without evidence of mas s, infiltrate or effusion. The cardiomediastinal contours are unremarkable. Osseous structures are intact. CONCLUSION: No acute disease. No significant change has occurred. Dylon Sesay MD on January 10, 2017 at 21:41 Board Certified Radiologist. This report was verified electronically.
[2017-01-11] VITALS (7 sets, daily range): BP systolic 137–161; BP diastolic 78–87; PULSE 18–105; RESP 17–19; TEMP 96.6–98.5; O2SAT 92–97
[2017-01-11] MEDS: POTASSIUM CHLORIDE INJ 20 MEQ in LACTATED RINGER'S 1000 ML INJ 1,000 ML IV SCH ×3 (00:57→21:03)
[2017-01-11] MEDS ORDERED: HALOPERIDOL LACTATE 5 MG/ML AMP IV PUSH ONE (01:45)
[2017-01-11] MEDS: PIPERACIL-TAZO 2.25 GM PREMIX 50 ML IV SCH ×4 (02:56→19:54)
[2017-01-11] MEDS: RESP: ALBUTEROL 2.5 MG/IPRATROPIUM 0.5 MG NEB (SCH) NEB ×4 (03:35→21:19)
[2017-01-11] MEDS: MORPHINE SULFATE 4 MG/ML INJ IV PUSH PRN ×2 (05:38→18:22)
[2017-01-11 05:43] LABS: BICARBONATE 26.9 MEQ/L (21.0-32.0); POTASSIUM 3.5 MEQ/L (3.5-5.1)
--- NOTE | 2017-01-11 07:37 | HHI.PR ---
Subjective Subjective Notes Patient pulled out NG and central line last night; confused and agitated; more coherent now. NG replaced and peripheral IV started. Objective Vitals/I&O Vital Signs Date Time Temp Pulse Resp B/P Pulse Ox O2 Delivery O2 Flow Rate FiO2 01/11/17 03:37 93 Nasal Cannula 3.00 01/11/17 00:00 97.9 105 19 137/78 01/10/17 07:52 30 Labs Laboratory Tests Test 01/11/17 04:50 Sodium Level 145 Potassium Level 3.5 Chloride Level 111 Carbon Dioxide Level 26.9 Anion Gap 7 Blood Urea Nitrogen 22 Creatinine 1.06 Estimat Glomerular Filtration 66 Rate Random Glucose 97 Calcium Level 9.0 Date/Time Procedure Status Source Growth 01/07/17 22:04 Aerobic Blood Culture - Preliminary Resulted Blood Peripheral Gram Positive Cocci Pleomorphic Gram Positive Rods 01/07/17 22:04 Anaerobic Blood Culture - Preliminary Resulted Blood Peripheral NO GROWTH IN 3 DAYS Radiology Last Impressions Renal Ultrasound 01/08/17 0000 Signed Impressions: Service Date/Time: Sunday, January 08, 2017 07:43 - CONCLUSION: No acute findings. No hydronephrosis. Trace free fluid near left kidney. Eric Patel MD Chest X-Ray 01/08/17 0000 Signed Impressions: Service Date/Time: Sunday, January 08, 2017 06:33 - CONCLUSION: 1. NG enters stomach. A central line in superior vena cava. Mild basilar airspace disease. Eric Patel MD Abdomen X-Ray 01/06/17 0600 Signed Impressions: Service Date/Time: December 06:05 - CONCLUSION: Dilated air-filled small bowel with paucity of gas in the colon. Findings are again suspicious for small bowel obstruction. Jung Art MD Abdomen/Pelvis CT 01/05/17 6835 Signed Impressions: Service Date/Time: Thursday, January 05, 2017 18:56 - CONCLUSION: 1. Wall bowel obstruction is noted with transition point in the right lower quadrant. Jayden Youssef MD Lungs: Clear Abdomen: Other (Distended still, although softer) A/P Problem List: (1) Small bowel obstruction (2) Hypertension (3) Acute kidney injury (4) S/P exploratory laparotomy Assessment and Plan 86 year old male with SBO; POD#4 ex lap; BENJAMIN -Continue NGT to LIWS---okay to be off wall suction to ambulate in room and hallways and for meds -Remove restraints when present -Restart all home meds -Start lovenox at lower dose due to recent renal dysfunction and decreased GFR -OOB and mobilize--chair TID Problem Qualifiers (1) Hypertension: Qualified Code: I15.9 - Secondary hypertension Jaret Enriquez MD Jan 11, 2017 07:37
[2017-01-11] MEDS: SODIUM CHLORIDE 0.9% FLUSH 5 ML FLUSH FLUSH SCH ×2 (08:21→19:54)
[2017-01-11] MEDS: THIAMINE INJ 100 MG in SODIUM CHLORIDE 0.9% INJ 100 ML IV SCH (08:21)
[2017-01-11] MEDS: CITALOPRAM HYDROBROMIDE 20 MG TAB PO SCH (09:25)
[2017-01-11] MEDS: PRAVASTATIN SOD 40 MG TAB PO SCH (09:25)
--- NOTE | 2017-01-11 09:28 | HHI.PR ---
Objective Vitals Vital Signs Date Time Temp Pulse Resp B/P Pulse Ox O2 Delivery O2 Flow Rate FiO2 01/11/17 08:20 Nasal Cannula 3.00 30 01/11/17 08:00 96.9 91 18 160/87 96 01/11/17 03:37 93 Nasal Cannula 3.00 01/11/17 00:00 97.9 105 19 137/78 95 01/10/17 21:20 Nasal Cannula 3.00 01/10/17 21:19 96 Nasal Cannula 3.00 01/10/17 20:00 98.5 109 19 137/71 93 01/10/17 16:00 97.0 98 18 174/79 92 01/10/17 12:00 97.8 86 18 150/77 94 01/10/17 09:46 96 Nasal Cannula 3.00 I/O 01/10/17 01/10/17 01/10/17 01/11/17 01/11/17 01/11/17 07:00 15:00 23:00 07:00 15:00 23:00 Intake Total 896 ml 1178 ml 0 ml 1741 ml Output Total 845 ml 1865 ml 1210 ml Balance 51 ml -687 ml 0 ml 531 ml Intake Oral 120 ml 575 ml 0 ml 0 ml IV Total 776 ml 603 ml 1741 ml Output Urine Total 600 ml 785 ml Gastric Drainage Total 200 ml 1000 ml 1150 ml Drainage Total 45 ml 80 ml 60 ml # Voids 1 3 # Bowel Movements 0 0 0 0 Result Diagram: 01/10/17 0445 01/11/17 0450 Imaging Last Impressions Chest X-Ray 01/10/17 0000 Signed Impressions: Service Date/Time: Tuesday, January 10, 2017 21:22 - CONCLUSION: No acute disease. No significant change has occurred. Dylon Sesay MD Renal Ultrasound 01/08/17 0000 Signed Impressions: Service Date/Time: Sunday, January 08, 2017 07:43 - CONCLUSION: No acute findings. No hydronephrosis. Trace free fluid near left kidney. Eric Patel MD Abdomen X-Ray 01/06/17 0600 Signed Impressions: Service Date/Time: December 06:05 - CONCLUSION: Dilated air-filled small bowel with paucity of gas in the colon. Findings are again suspicious for small bowel obstruction. Jung Art MD Abdomen/Pelvis CT 01/05/17 0456 Signed Impressions: Service Date/Time: Thursday, January 05, 2017 18:56 - CONCLUSION: 1. Wall bowel obstruction is noted with transition point in the right lower quadrant. Jayden Youssef MD Objective Remarks GENERAL: AOX3, NAD. SKIN: Warm and dry. HEAD: Normocephalic. EYES: No scleral icterus. No injection or drainage. NECK: Supple, trachea midline. No JVD or lymphadenopathy. CARDIOVASCULAR: Regular rate and rhythm without murmurs, gallops, or rubs. RESPIRATORY: Breath sounds equal bilaterally. No accessory muscle use. GASTROINTESTINAL: Abdomen distended, hypoactive BS, non-tender to palpation. MUSCULOSKELETAL: No cyanosis, or edema. BACK: Nontender without obvious deformity. No CVA tenderness. Procedures 01/07/2017 OPERATIVE PROCEDURE PERFORMED: 1. Diagnostic laparoscopy 2. Laparoscopic lysis of adhesions. 3. Exploratory laparotomy with decompression of small bowel and lysis of adhesions. A/P Problem List: (1) Small bowel obstruction ICD Code: K56.69 Status: Acute (2) Abdominal pain ICD Code: R10.9 Status: Acute (3) Hypertension ICD Code: I10 Status: Acute (4) Hyperlipidemia ICD Code: E78.5 Status: Acute (5) GERD (gastroesophageal reflux disease) ICD Code: K21.9 Status: Acute Assessment and Plan Mr. King is a pleasant 86 year old male with a history of HTN, HLD, GERD, previous colon resection who was admitted to the hospital on 01/05/2017 due to abdominal pain, distention. He was diagnosed with SBO and patient underwent Ex Lap on 01/07/2017. Acute small bowel obstruction with presenting abdominal pain distention: Increased risk factors from previous abdominal surgery. CT scan showed small bowel obstruction with transition zone. Gen. surgery following. Pt is s/p Laparoscopic lysis of adhesions, followed by exploratory laparotomy and small bowel decompression through enterostomy on 01/07/2017. - Morphine for pain control, Zofran for nausea vomiting - Postop wound management per Dr. Enriquez. NG tube in place. Continue pain control. Continue IV fluids. - blood cx growing gram pos cocci pairs and clusters and pleomorphic gram pos rods. Patient is currently on Zosyn empirically. - Acute delirium - probably due to Ativan given yesterday. - Patient required restraints. We took his bilateral upper ext restraints off this morning. He is very cooperative and pleasant now. - Will use Haloperidol if needed. --Hypotension - Post op, pt became severely hypotensive and required levophed Gtt. Pt was transferred to the ICU and was under the care of the critical care team: - Received 4 L of crystalloids in the OR, additional 4.5 L boluses post op with improving urine output. - Currently blood pressure normotensive or slightly hypertensive. Currently on LR+KCL 125cc/hour. Acute renal failure: now improving. nephrology following. Suspected ATN from hypotension. Creatinine peaked to 5.90, improved to 1.06 on 01/11/2017. - Mild hypokalemia - KCL replacement ordered by surgery team. K+ improved to 3.5. - Restless leg syndrome - continue home med Ropinirole 2mg Qday. --Prior tobacco use -Nasal cannula oxygen -DuoNeb every 6 hours and when necessary -Aggressive pulmonary toilet, incentive spirometry, Acapella -Ativan if needed for alcohol withdrawal and agitation. Supplement thiamine. Full code. Ambulation. Lovenox 30mg Q24hrs. Problem Qualifiers (1) Abdominal pain: Qualified Code: R10.84 - Generalized abdominal pain (2) Hypertension: Qualified Code: I15.9 - Secondary hypertension (3) Hyperlipidemia: Qualified Code: E78.5 - Hyperlipidemia, unspecified hyperlipidemia type Alin Darby DO Jan 11, 2017 9:28 am
[2017-01-11] MEDS ORDERED: POTASSIUM CHLOR 20 MEQ PREMIX 100 ML IV SCH (09:30)
[2017-01-11] MEDS ORDERED: HALOPERIDOL LACTATE 5 MG/ML AMP IM PRN (09:30)
[2017-01-11] MEDS: ENOXAPARIN SODIUM 30 MG/0.3 ML SYRINGE SQ SCH (09:43)
[2017-01-11] MEDS: LOSARTAN 50 MG TAB PO SCH (13:37)
[2017-01-11] MEDS: PANTOPRAZOLE SOD 40 MG DELAYED RELEASE TAB PO SCH (13:37)
--- NOTE | 2017-01-11 18:37 | HHI.NPPN ---
Subjective General Problems: Anemia Renal Failure: Chronic, Acute, Stage III History of Present Illness 6-year-old male with past medical history of hypertension, hyperlipidemia, gastroesophageal reflux disease, history of colon resection who was admitted with abdominal pain and distension. I was called to see the patient because of elevated BUN and creatinine. The patient had a creatinine of 1.88 on presentation and it has gone up to 5.9. Additional Remarks Patient is alert, feeling better, still with NGT and NPO. Review of Systems General Constitutional: Fatigue Objective Data Data 01/10/17 01/11/17 19:00 07:00 Intake Total 1178 ml 1741 ml Output Total 1865 ml 1210 ml Balance -687 ml 531 ml Intake Oral 575 ml 0 ml IV Total 603 ml 1741 ml Output Urine Total 785 ml Gastric Drainage Total 1000 ml 1150 ml Drainage Total 80 ml 60 ml # Voids 4 # Bowel Movements 0 0 Vital Signs Date Time Temp Pulse Resp B/P Pulse Ox O2 Delivery O2 Flow Rate FiO2 01/11/17 18:27 18 01/11/17 16:00 96.6 18 18 148/86 92 01/11/17 12:00 98.5 90 17 137/85 92 01/11/17 08:20 Nasal Cannula 3.00 30 01/11/17 08:00 96.9 91 18 160/87 96 01/11/17 03:37 93 Nasal Cannula 3.00 01/11/17 00:00 97.9 105 19 137/78 95 01/10/17 21:20 Nasal Cannula 3.00 01/10/17 21:19 96 Nasal Cannula 3.00 01/10/17 20:00 98.5 109 19 137/71 93 -: 01/10/17 0445 01/11/17 0450 Physical Exam General Appearance: No Acute Distress, Comfortable Eyes Eye Exam: Pupils Equal Throat Throat Exam: Oral Mucosa [place] & Moist Pulmonary Resp Exam: Breath Sounds Equal, No Distress, Decreased Bases Cardiology CV Exam: Regular, Normal Sinus Rhythm Gastrointestinal/Abdomen GI Exam: Soft, Non-Tender, Bowel Sounds Present, Distended Extremeties Extremities Exam: Trace Edema Neurologic Neuro Exam: Alert, Awake, Oriented Psychiatric Psych Exam: Appropriate Responses Assessment/Plan Assessment Summary: KELSEY/Acute Renal Failure, Dehydration, CKD Stage III Problem List: (1) Hyperlipidemia (2) Small bowel obstruction (3) GERD (gastroesophageal reflux disease) (4) Hypertension (5) Acute kidney injury Plan Patient has good urine out put, BP is now stable. Urine Na. was normal and Eosinophils negative. Creatinine stable and now 1.0, K is better. I will sign off from Nephrology, call again if needed. Problem Qualifiers (1) Hyperlipidemia: Qualified Code: E78.5 - Hyperlipidemia, unspecified hyperlipidemia type (2) Hypertension: Qualified Code: I15.9 - Secondary hypertension Wendy Garcia MD Jan 11, 2017 18:37
[2017-01-11] MEDS: PANTOPRAZOLE SODIUM 40 MG VIAL IV PUSH SCH (19:54)
[2017-01-12] VITALS (9 sets, daily range): BP systolic 132–165; BP diastolic 73–101; PULSE 89–96; RESP 16–24; TEMP 96.5–98.4; O2SAT 90–100
[2017-01-12] MEDS: PIPERACIL-TAZO 2.25 GM PREMIX 50 ML IV SCH ×3 (02:06→13:42)
[2017-01-12] MEDS: RESP: ALBUTEROL 2.5 MG/IPRATROPIUM 0.5 MG NEB (SCH) NEB ×4 (02:35→21:24)
[2017-01-12] MEDS: POTASSIUM CHLORIDE INJ 20 MEQ in LACTATED RINGER'S 1000 ML INJ 1,000 ML IV SCH (05:00)
[2017-01-12] MEDS: MORPHINE SULFATE 4 MG/ML INJ IV PUSH PRN ×2 (05:00→10:52)
[2017-01-12 05:23] LABS: BICARBONATE 27.4 MEQ/L (21.0-32.0); MAGNESIUM 1.7 MG/DL (1.5-2.5); POTASSIUM 4.3 MEQ/L (3.5-5.1)
[2017-01-12] MEDS: ENOXAPARIN SODIUM 30 MG/0.3 ML SYRINGE SQ SCH (06:27)
[2017-01-12] MEDS: PANTOPRAZOLE SOD 40 MG DELAYED RELEASE TAB PO SCH (08:29)
[2017-01-12] MEDS: CITALOPRAM HYDROBROMIDE 20 MG TAB PO SCH (08:29)
[2017-01-12] MEDS: LOSARTAN 50 MG TAB PO SCH (08:29)
[2017-01-12] MEDS: PRAVASTATIN SOD 40 MG TAB PO SCH (08:29)
[2017-01-12] MEDS: THIAMINE INJ 100 MG in SODIUM CHLORIDE 0.9% INJ 100 ML IV SCH (08:29)
[2017-01-12] MEDS: SODIUM CHLORIDE 0.9% FLUSH 5 ML FLUSH FLUSH SCH ×2 (08:30→20:32)
[2017-01-12] MEDS: TRIAMTERENE 37.5 MG PO SCH (08:54)
[2017-01-12] MEDS: D5-1/4 NS + KCL 20 MEQ INJ 1,000 ML IV SCH ×2 (10:20→17:25)
[2017-01-12] MEDS ORDERED: cloNIDine HCL 0.1 MG TAB PO PRN (11:30)
--- NOTE | 2017-01-12 11:35 | RADRPT ---
EXAM DATE/TIME: 01/12/2017 10:52 [facility] COMPARISON: CT ABDOMEN & PELVIS W CONTRAST, January 05, 2017, 18:56. ABDOMEN KUB ONLY, January 06, 2017, 6:05. INDICATIONS : Abdominal pain. Evaluate for small bowel obstrucion. Post op bowel resection. MEDICAL HISTORY : Hypertension. Gastroesophageal reflux disease. Diverticulitis. SURGICAL HISTORY : Colon resection. Discectomy, lumbar. ENCOUNTER: Subsequent ACUITY: 4 - 6 days PAIN SCORE: 6/10 LOCATION: Abdomen, all quadrant. FINDINGS: Supine view of the abdomen was performed. Interval abdominal surgery with midline superficial skin st aples overlying the lower abdomen and pelvis. Presumed JANE type drain in the left pelvis. Less distent ion of small bowel loops when compared to the prior exam I do believe that there is some air now seen in portions of the colon. NG tube is identified with the tip in the gastric antrum. CONCLUSION: 1. Postoperative changes as detailed above. 2. Left distention of small bowel loops and I suspect there is some air now seen in portions of the c olon. No findings of obstruction or pneumoperitoneum. 3. NG tube with the tip in the gastric antrum . Chepe Bai MD on January 12, 2017 at 11:23 Board Certified Radiologist. This report was verified electronically.
--- NOTE | 2017-01-12 11:43 | HHI.PR ---
Subjective Remarks Follow-up visit acute SBO, status post ex lap BENJAMIN, hypernatremia, delirium. Patient seen today. at the bedside. NGT in place. Reports he is doing better. As per nursing, no acute delirium overnight. Reports he has not had any bowel movements or passed gas. Abdominal KUB was done after being seen by general surgery service. Denies pain and discomfort. Denies SOB/ dyspnea. Denies chest pain, palpitations, headaches, dizziness. Denies fevers, chills, n/ v/d. Objective Vitals Vital Signs Date Time Temp Pulse Resp B/P Pulse Ox O2 Delivery O2 Flow Rate FiO2 01/12/17 10:15 97 Nasal Cannula 3.00 01/12/17 08:00 96.8 89 16 161/101 97 158/92 01/12/17 07:43 97 Nasal Cannula 3.00 01/12/17 04:41 98.4 91 161/88 95 01/12/17 02:35 96 Nasal Cannula 3.00 01/12/17 00:00 98.4 94 20 165/89 95 01/11/17 21:19 95 Nasal Cannula 3.00 01/11/17 20:01 Nasal Cannula 3.00 01/11/17 20:00 97.6 90 19 161/87 97 01/11/17 18:27 18 01/11/17 16:00 96.6 18 18 148/86 92 01/11/17 12:00 98.5 90 17 137/85 92 I/O 01/11/17 01/11/17 01/11/17 01/12/17 01/12/17 01/12/17 07:00 15:00 23:00 07:00 15:00 23:00 Intake Total 1741 ml 920 ml 875 ml 961 ml Output Total 1210 ml 90 ml 600 ml 860 ml Balance 531 ml 830 ml 275 ml 101 ml Intake Oral 0 ml 0 ml 0 ml 0 ml IV Total 1741 ml 920 ml 875 ml 961 ml Output Urine Total 150 ml 500 ml Gastric Drainage Total 1150 ml 50 ml 400 ml 300 ml Drainage Total 60 ml 40 ml 50 ml 60 ml # Voids 3 3 2 2 # Bowel Movements 0 0 0 0 Result Diagram: 01/10/17 0445 01/12/17 0423 Imaging Last Impressions Abdomen X-Ray 01/12/17 1042 Signed Impressions: Service Date/Time: Thursday, January 12, 2017 10:52 - CONCLUSION: 1. Postoperative changes as detailed above. 2. Left distention of small bowel loops and I suspect there is some air now seen in portions of the colon. No findings of obstruction or pneumoperitoneum. 3. NG tube with the tip in the gastric antrum . Chepe Bai MD Chest X-Ray 01/10/17 0000 Signed Impressions: Service Date/Time: Tuesday, January 10, 2017 21:22 - CONCLUSION: No acute disease. No significant change has occurred. Dylon Sesay MD Renal Ultrasound 01/08/17 0000 Signed Impressions: Service Date/Time: Sunday, January 08, 2017 07:43 - CONCLUSION: No acute findings. No hydronephrosis. Trace free fluid near left kidney. Eric Patel MD Abdomen/Pelvis CT 01/05/17 1747 Signed Impressions: Service Date/Time: Thursday, January 05, 2017 18:56 - CONCLUSION: 1. Wall bowel obstruction is noted with transition point in the right lower quadrant. Jayden Youssef MD Objective Remarks GENERAL: This is a well-nourished, well-developed patient, in no apparent distress. HEENT: Normocephalic. Pupils equal round and reactive. Nose without bleeding. Airway patent. NECK: Trachea midline. No JVD. Supple. CARDIOVASCULAR: Regular rate and rhythm without murmurs, gallops, or rubs. RESPIRATORY: No accessory muscle use. Bilateral breath sounds equal. GASTROINTESTINAL: Abdomen distended, hypoactive distant BS, nontender to palpation. MUSCULOSKELETAL: Extremities without clubbing, cyanosis, or edema. NEUROLOGICAL: Awake and alert. No focal neuro deficit. ALBA. Normal speech. Procedures 01/07/2017 OPERATIVE PROCEDURE PERFORMED: 1. Diagnostic laparoscopy 2. Laparoscopic lysis of adhesions. 3. Exploratory laparotomy with decompression of small bowel and lysis of adhesions. A/P Problem List: (1) Small bowel obstruction ICD Code: K56.69 Status: Acute (2) Abdominal pain ICD Code: R10.9 Status: Acute (3) Hypertension ICD Code: I10 Status: Acute (4) Hyperlipidemia ICD Code: E78.5 Status: Acute (5) GERD (gastroesophageal reflux disease) ICD Code: K21.9 Status: Acute Assessment and Plan Mr. King is a pleasant 86 year old male with a history of HTN, HLD, GERD, previous colon resection who was admitted to the hospital on 01/05/2017 due to abdominal pain, distention. He was diagnosed with SBO and patient underwent Ex Lap on 01/07/2017. Acute small bowel obstruction with presenting abdominal pain distention: Increased risk factors from previous abdominal surgery. CT scan showed small bowel obstruction with transition zone. Gen. surgery following. Pt is s/p Laparoscopic lysis of adhesions, followed by exploratory laparotomy and small bowel decompression through enterostomy on 01/07/2017. - Morphine for pain control, Zofran for nausea vomiting - Postop wound management per Dr. Enriquez. NG tube in place. Continue pain control. Continue IV fluids. - blood cx growing gram pos cocci pairs and clusters and pleomorphic gram pos rods. Patient is currently on Zosyn empirically. - KUB done showed postoperative changes as detailed above. Left distention of small bowel loops and suspect there is some air now seen in portions of the colon. No findings of obstruction or pneumoperitoneum. NG tube with the tip in the gastric antrum. Hypomagnesemia - Mag 1.7 Mild hypernatremia - Na 146 - IV fluids changed to D5 1/4 NS + KCl 20 MEQ 125 ML's an hour - Magnesium 1 g ordered - Monitor BMP - Acute delirium - probably due to Ativan given yesterday. - Patient required restraints. We took his bilateral upper ext restraints off this morning. He is very cooperative and pleasant now. - Calm and cooperative on exam. - Will use Haloperidol if needed. --Hypotension, resolved now hypertensive - Post op, pt became severely hypotensive and required levophed Gtt. Pt was transferred to the ICU and was under the care of the critical care team: - Received 4 L of crystalloids in the OR, additional 4.5 L boluses post op with improving urine output. - Currently blood pressure normotensive or slightly hypertensive. - Start Vasotec 1.25mg IV Q6 when necessary, clonidine 0.1 mg Q6 when necessary Acute renal failure: now improving. nephrology following. Suspected ATN from hypotension. Creatinine peaked to 5.90, improved to 1.06 on 01/11/2017. - Mild hypokalemia - KCL replacement ordered by surgery team. K+ improved to 3.5 -->4.3 - Restless leg syndrome - continue home med Ropinirole 2mg Qday. --Prior tobacco use -Nasal cannula oxygen -DuoNeb every 6 hours and when necessary -Aggressive pulmonary toilet, incentive spirometry, Acapella -Ativan if needed for alcohol withdrawal and agitation. Supplement thiamine. Full code. Ambulation. Lovenox 30mg Q24 Written by Perez Díaz, acting as scribe for Dr. Darby on 01/12/17 at 14:01. All or portions of this note were transcribed by [employer]. I, Dr. Sohan Darby personally performed the history, physical exam, and medical decision making; and confirmed the accuracy of the information in the transcribed note. Authenticated by Dr. Sohan Darby on 01/12/17 at 14:50. Discharge Planning Not ready for discharge. Problem Qualifiers (1) Abdominal pain: Qualified Code: R10.84 - Generalized abdominal pain (2) Hypertension: Qualified Code: I15.9 - Secondary hypertension (3) Hyperlipidemia: Qualified Code: E78.5 - Hyperlipidemia, unspecified hyperlipidemia type Perez Beal Jan 12, 2017 11:43 am Alin Darby DO Jan 12, 2017 2:51 pm
[2017-01-12] MEDS ORDERED: ENALAPRILAT 1.25 MG/ML VIAL IV PUSH PRN (11:45)
[2017-01-12] MEDS ORDERED: MAGNESIUM SULFATE 1 GM PREMIX 100 ML IV ONE (12:00)
--- NOTE | 2017-01-12 12:56 | HHI.PR ---
Subjective Subjective Notes Resting in bed Wants to go home today States Tiki (his ) can help him at home Objective Vitals/I&O Vital Signs Date Time Temp Pulse Resp B/P Pulse Ox O2 Delivery O2 Flow Rate FiO2 01/12/17 10:15 97 Nasal Cannula 3.00 01/12/17 08:00 96.8 89 16 161/101 158/92 01/11/17 08:20 30 Labs Laboratory Tests Test 01/12/17 04:23 Sodium Level 146 Potassium Level 4.3 Chloride Level 112 Carbon Dioxide Level 27.4 Anion Gap 7 Blood Urea Nitrogen 21 Creatinine 1.09 Estimat Glomerular Filtration 64 Rate Random Glucose 94 Calcium Level 8.8 Magnesium Level 1.7 Date/Time Procedure Status Source Growth 01/07/17 22:04 Aerobic Blood Culture - Final Complete Blood Peripheral Staph Sp Coagulase Negative Corynebacterium Sp 01/07/17 22:04 Anaerobic Blood Culture - Final Complete Blood Peripheral NO GROWTH IN 5 DAYS Radiology Last Impressions Renal Ultrasound 01/08/17 0000 Signed Impressions: Service Date/Time: Sunday, January 08, 2017 07:43 - CONCLUSION: No acute findings. No hydronephrosis. Trace free fluid near left kidney. Eric Patel MD Chest X-Ray 01/08/17 0000 Signed Impressions: Service Date/Time: Sunday, January 08, 2017 06:33 - CONCLUSION: 1. NG enters stomach. A central line in superior vena cava. Mild basilar airspace disease. Eric Patel MD Abdomen X-Ray 01/06/17 0600 Signed Impressions: Service Date/Time: December 06:05 - CONCLUSION: Dilated air-filled small bowel with paucity of gas in the colon. Findings are again suspicious for small bowel obstruction. Jung Art MD Abdomen/Pelvis CT 01/05/17 9387 Signed Impressions: Service Date/Time: Thursday, January 05, 2017 18:56 - CONCLUSION: 1. Wall bowel obstruction is noted with transition point in the right lower quadrant. Jayden Youssef MD Cardiovascular: Regular Lungs: Clear Abdomen: Other (Abd distended; midline incision with katherin--c/d/i; JANE x1 with SS ) Extremities: Other (generalized edema ) A/P Problem List: (1) Small bowel obstruction (2) Hypertension (3) Acute kidney injury (4) S/P exploratory laparotomy Assessment and Plan 86 year old male with SBO; POD5 ex lap; BENJAMIN -Continue NGT to LIWS---okay to be off wall suction to ambulate in room and hallways -Sips and ice chips okay along with swabs -PT eval and treat -OOB and mobilize--chair TID -KUB shows ileus -If not passing gas by tomorrow will discuss TPN with patient and -Discussed with Dr. Enriquez Attending Note - Dr. Enriquez Abdomen still quite distended, but nontender Skin mildly erythematous, but incision clean and dry Discussed situation with and patient Will change Zosyn The exam, history, and the medical decision-making described in the above note were completed with the assistance of the mid-level provider. I reviewed and agree with the findings presented. I attest that I had a [id number] encounter with the patient on the same day, and personally performed and documented my assessment and findings in the medical record. Problem Qualifiers (1) Hypertension: Qualified Code: I15.9 - Secondary hypertension Neeru Adam Jan 12, 2017 12:56 Jaret Enriquez MD Jan 12, 2017 18:39
[2017-01-12 15:51] LABS: AUTOMATED NEUTROPHIL # 7.1 TH/MM3 (1.8-7.7); BASOPHIL % 0.4 % (0.0-2.0); EOSINOPHIL # 0.1 TH/MM3 (0-0.4); EOSINOPHIL % 1.1 % (0.0-4.0); HEMATOCRIT 33.3 % (39.0-51.0); LYMPH % 8.5 % (9.0-44.0); LYMPHOCYTE # 0.7 TH/MM3 (1.0-4.8); MEAN CELL VOLUME 92.2 FL (80.0-100.0); MEAN CORPUSCULAR HEMOGLOBIN 31.7 PG (27.0-34.0); MEAN CORPUSCULAR HGB CONC 34.4 % (32.0-36.0); MONO % 8.4 % (0.0-8.0); NEUT % 81.6 % (16.0-70.0); PLATELET COUNT 177 TH/MM3 (150-450); RED BLOOD COUNT 3.61 MIL/MM3 (4.50-5.90); WHITE BLOOD COUNT 8.8 TH/MM3 (4.0-11.0)
[2017-01-12 15:53] LABS: HEMO FLAGS AUTO DIFF
[2017-01-12 16:34] LABS: CORRECTED NUCLEATED RBC 1 /100 WBC (0-0); EOSINOPHILS 2 % (0-4); METAMYELOCYTES 1 % (0-1); MYELOCYTES 2 % (0-0); NEUTROPHIL # MANUAL DIFF 6.9 TH/MM3 (1.8-7.7); PLATELET ESTIMATE SMEAR NORMAL (NORMAL); PLATELET MORPHOLOGY NORMAL (NORMAL); POLYS (SEG NEUTROPHILS) 75 % (16-70); SCAN/DIFF FINAL DIFF MANUAL; WBC DIFF SAMPLE 100
[2017-01-12] MEDS: cefTAZidime INJ 2,000 MG in SODIUM CHLORIDE 0.9% INJ 100 ML IV SCH (20:30)
[2017-01-12] MEDS: PANTOPRAZOLE SODIUM 40 MG VIAL IV PUSH SCH (20:32)
[2017-01-13] VITALS (7 sets, daily range): BP systolic 131–167; BP diastolic 72–84; PULSE 90–99; RESP 16–20; TEMP 97.1–98.7; O2SAT 92–97
[2017-01-13] MEDS: MORPHINE SULFATE 4 MG/ML INJ IV PUSH PRN (02:00)
[2017-01-13] MEDS: RESP: ALBUTEROL 2.5 MG/IPRATROPIUM 0.5 MG NEB (SCH) NEB ×4 (04:44→21:07)
[2017-01-13 05:54] LABS: BICARBONATE 25.8 MEQ/L (21.0-32.0); POTASSIUM 4.3 MEQ/L (3.5-5.1)
[2017-01-13] MEDS: D5-1/4 NS + KCL 20 MEQ INJ 1,000 ML IV SCH ×4 (07:03→23:27)
[2017-01-13] MEDS: THIAMINE INJ 100 MG in SODIUM CHLORIDE 0.9% INJ 100 ML IV SCH (08:31)
[2017-01-13] MEDS: PANTOPRAZOLE SOD 40 MG DELAYED RELEASE TAB PO SCH (08:32)
[2017-01-13] MEDS: PRAVASTATIN SOD 40 MG TAB PO SCH (08:32)
[2017-01-13] MEDS: CITALOPRAM HYDROBROMIDE 20 MG TAB PO SCH (08:32)
[2017-01-13] MEDS: ENOXAPARIN SODIUM 30 MG/0.3 ML SYRINGE SQ SCH (08:32)
[2017-01-13] MEDS: cefTAZidime INJ 2,000 MG in SODIUM CHLORIDE 0.9% INJ 100 ML IV SCH ×2 (08:32→20:49)
[2017-01-13] MEDS: LOSARTAN 50 MG TAB PO SCH (08:32)
[2017-01-13] MEDS: SODIUM CHLORIDE 0.9% FLUSH 5 ML FLUSH FLUSH SCH ×2 (08:37→20:49)
[2017-01-13] MEDS: TRIAMTERENE 37.5 MG PO SCH (08:51)
--- NOTE | 2017-01-13 11:42 | HHI.PR ---
Subjective Remarks Follow-up for small bowel obstruction. Patient is sitting in his chair. Denies any chest pain, shortness of breath, fever or chills. He still has not passed any gas or stool. He reports no significant abdominal pain. Objective Vitals Vital Signs Date Time Temp Pulse Resp B/P Pulse Ox O2 Delivery O2 Flow Rate FiO2 01/13/17 09:32 95 Nasal Cannula 2.00 01/13/17 08:30 Nasal Cannula 2.00 01/13/17 08:00 97.8 95 16 138/83 97 01/13/17 04:46 95 Nasal Cannula 2.00 01/13/17 00:00 97.7 90 18 131/75 93 01/12/17 20:00 97.3 96 20 132/83 92 01/12/17 16:00 96.5 96 24 142/88 92 01/12/17 15:40 100 Nasal Cannula 3.00 01/12/17 12:00 97.0 94 17 136/73 90 I/O 01/12/17 01/12/17 01/12/17 01/13/17 01/13/17 01/13/17 07:00 15:00 23:00 07:00 15:00 23:00 Intake Total 961 ml 757 ml 568 ml 668 ml Output Total 860 ml 620 ml 95 ml 245 ml Balance 101 ml 137 ml 473 ml 423 ml Intake Oral 0 ml 0 ml IV Total 961 ml 757 ml 568 ml 668 ml Output Urine Total 500 ml 300 ml Stool Total 0 ml Gastric Drainage Total 300 ml 250 ml 50 ml 200 ml Drainage Total 60 ml 70 ml 45 ml 45 ml # Voids 2 4 3 2 # Bowel Movements 0 0 0 0 Result Diagram: 01/12/17 1429 01/13/17 0500 Imaging Last Impressions Abdomen X-Ray 01/12/17 1042 Signed Impressions: Service Date/Time: Thursday, January 12, 2017 10:52 - CONCLUSION: 1. Postoperative changes as detailed above. 2. Left distention of small bowel loops and I suspect there is some air now seen in portions of the colon. No findings of obstruction or pneumoperitoneum. 3. NG tube with the tip in the gastric antrum . Chepe Bai MD Chest X-Ray 01/10/17 0000 Signed Impressions: Service Date/Time: Tuesday, January 10, 2017 21:22 - CONCLUSION: No acute disease. No significant change has occurred. Dylon Sesay MD Renal Ultrasound 01/08/17 0000 Signed Impressions: Service Date/Time: Sunday, January 08, 2017 07:43 - CONCLUSION: No acute findings. No hydronephrosis. Trace free fluid near left kidney. Eric Patel MD Abdomen/Pelvis CT 01/05/17 1747 Signed Impressions: Service Date/Time: Thursday, January 05, 2017 18:56 - CONCLUSION: 1. Wall bowel obstruction is noted with transition point in the right lower quadrant. Jayden Youssef MD Objective Remarks GENERAL: AOX3, NAD. SKIN: Warm and dry. HEAD: Normocephalic. EYES: No scleral icterus. No injection or drainage. NECK: Supple, trachea midline. No JVD or lymphadenopathy. CARDIOVASCULAR: Regular rate and rhythm without murmurs, gallops, or rubs. RESPIRATORY: Breath sounds equal bilaterally. No accessory muscle use. GASTROINTESTINAL: Abdomen distended, hypoactive BS, non-tender to palpation. MUSCULOSKELETAL: No cyanosis, or edema. BACK: Nontender without obvious deformity. No CVA tenderness. Procedures 01/07/2017 OPERATIVE PROCEDURE PERFORMED: 1. Diagnostic laparoscopy 2. Laparoscopic lysis of adhesions. 3. Exploratory laparotomy with decompression of small bowel and lysis of adhesions. A/P Problem List: (1) Small bowel obstruction ICD Code: K56.69 Status: Acute (2) Abdominal pain ICD Code: R10.9 Status: Acute (3) Hypertension ICD Code: I10 Status: Acute (4) Hyperlipidemia ICD Code: E78.5 Status: Acute (5) GERD (gastroesophageal reflux disease) ICD Code: K21.9 Status: Acute Assessment and Plan Mr. King is a pleasant 86 year old male with a history of HTN, HLD, GERD, previous colon resection who was admitted to the hospital on 01/05/2017 due to abdominal pain, distention. He was diagnosed with SBO and patient underwent Ex Lap on 01/07/2017. Acute small bowel obstruction with presenting abdominal pain distention: Increased risk factors from previous abdominal surgery. CT scan showed small bowel obstruction with transition zone. Gen. surgery following. Pt is s/p Laparoscopic lysis of adhesions, followed by exploratory laparotomy and small bowel decompression through enterostomy on 01/07/2017. - Morphine for pain control, Zofran for nausea vomiting - Postop wound management per Dr. Enriquez. NG tube in place. Continue pain control. Continue IV fluids. - blood cx Coag negative staph and Corynebacterium sp. Patient is currently on Zosyn empirically. - KUB done. Left distention of small bowel loops and suspect there is some air now seen in portions of the colon. No findings of obstruction or pneumoperitoneum. NG tube with the tip in the gastric antrum. Hypomagnesemia - Mag 1.7 - received 1 g of MgSO4 IV Mild hypernatremia - Na 146 - IV fluids changed to D5 1/4 NS + KCl 20 MEQ 125 ML's an hour - Monitor BMP periodically - Acute delirium - probably due to Ativan given yesterday. - He is very cooperative and pleasant now. - Calm and cooperative on exam. - Will use Haloperidol if needed. --Hypotension, resolved now hypertensive - Post op, pt became severely hypotensive and required levophed Gtt. Pt was transferred to the ICU and was under the care of the critical care team: - Received 4 L of crystalloids in the OR, additional 4.5 L boluses post op with improving urine output. - Currently blood pressure normotensive or slightly hypertensive. - Start Vasotec 1.25mg IV Q6 when necessary, clonidine 0.1 mg Q6 when necessary. Amlodipine 5mg Qday. Acute renal failure: now improving. nephrology following. Suspected ATN from hypotension. Creatinine peaked to 5.90, improved to 1.06 on 01/11/2017. - Mild hypokalemia - KCL replacement ordered by surgery team. K+ improved to 3.5 -->4.3 - Restless leg syndrome - continue home med Ropinirole 2mg Qday. --Prior tobacco use -Nasal cannula oxygen -DuoNeb every 6 hours and when necessary -Aggressive pulmonary toilet, incentive spirometry, Acapella -Ativan if needed for alcohol withdrawal and agitation. Supplement thiamine. Full code. Ambulation. Lovenox 30mg Q24 Problem Qualifiers (1) Abdominal pain: Qualified Code: R10.84 - Generalized abdominal pain (2) Hypertension: Qualified Code: I15.9 - Secondary hypertension (3) Hyperlipidemia: Qualified Code: E78.5 - Hyperlipidemia, unspecified hyperlipidemia type Alin Darby DO Jan 13, 2017 11:42 am
[2017-01-13] MEDS ORDERED: DIATRIZOATE MEGLUM/DIATRIZOATE SOD 120 ML BTL (for RAD DIAG) RECTAL ONE (15:26)
--- NOTE | 2017-01-13 15:57 | RADRPT ---
EXAM DATE/TIME: 01/13/2017 14:21 [facility] COMPARISON: No previous studies available for comparison. INDICATIONS : Small bowel obstruction vs. ileus FLUORO TIME: 0.9 minutes IMAGE COUNT: 19 CONTRAST: 1. [facility]view MEDICAL HISTORY : Gastroesophageal reflux disease. Diverticulosis. SURGICAL HISTORY : colon resection ENCOUNTER: Initial ACUITY: 1 week PAIN SCORE: 2/10 LOCATION: Bilateral abdomen FINDINGS: Initial numerologist film demonstrates multiple air-filled mildly dilated loops of small bowel suggesting sm all bowel obstruction or ileus. No colonic dilatation is noted. Degenerative changes and scoliosis of the lumbar spine are noted. Gastrografin flow freely from the rectum to the terminal ileum without obstruction or stricture. Sca ttered uncomplicated colonic diverticula are noted. There is no colonic stricture noted. Evaluation of the colonic mucosa is somewhat limited on this Gastrografin study. CONCLUSION: 1. No evidence of colonic obstruction. 2. Uncomplicated colonic diverticulosis. 3. Multiple air-filled loops of small bowel suggesting partial small bowel obstruction or ileus. Cl inical correlation is recommended. 4. Degenerative changes and mild scoliosis of the lumbar spine. Sunny Batista MD on January 13, 2017 at 15:47 Board Certified Radiologist. This report was verified electronically.
--- NOTE | 2017-01-13 16:39 | HHI.PR ---
Subjective Subjective Notes Excited that [employer] won their basketball game last night Tiki at bedside Objective Vitals/I&O Vital Signs Date Time Temp Pulse Resp B/P Pulse Ox O2 Delivery O2 Flow Rate FiO2 01/13/17 12:00 97.8 91 17 154/80 95 01/13/17 09:32 Nasal Cannula 2.00 01/11/17 08:20 30 Labs Laboratory Tests Test 01/13/17 05:00 Sodium Level 145 Potassium Level 4.3 Chloride Level 110 Carbon Dioxide Level 25.8 Anion Gap 9 Blood Urea Nitrogen 15 Creatinine 0.99 Estimat Glomerular Filtration 72 Rate Random Glucose 103 Calcium Level 9.1 Radiology Last Impressions Renal Ultrasound 01/08/17 0000 Signed Impressions: Service Date/Time: Sunday, January 08, 2017 07:43 - CONCLUSION: No acute findings. No hydronephrosis. Trace free fluid near left kidney. Eric Patel MD Chest X-Ray 01/08/17 0000 Signed Impressions: Service Date/Time: Sunday, January 08, 2017 06:33 - CONCLUSION: 1. NG enters stomach. A central line in superior vena cava. Mild basilar airspace disease. Eric Patel MD Abdomen X-Ray 01/06/17 0600 Signed Impressions: Service Date/Time: December 06:05 - CONCLUSION: Dilated air-filled small bowel with paucity of gas in the colon. Findings are again suspicious for small bowel obstruction. Jung Art MD Abdomen/Pelvis CT 01/05/17 1747 Signed Impressions: Service Date/Time: Thursday, January 05, 2017 18:56 - CONCLUSION: 1. Wall bowel obstruction is noted with transition point in the right lower quadrant. Jayden Youssef MD Cardiovascular: Regular Lungs: Clear Abdomen: Other (midline incision--- stapled; JANE in place with SS fluid) Extremities: Other (generalized edema) A/P Problem List: (1) Small bowel obstruction (2) Hypertension (3) Acute kidney injury (4) S/P exploratory laparotomy Assessment and Plan 86 year old male with SBO; POD6 ex lap; BENJAMIN -Continue NGT to LIWS---okay to be off wall suction to ambulate in room and hallways -Sips and ice chips okay along with swabs --Gastrografin enema today -PT eval and treat -OOB and mobilize--chair TID -If not passing gas by tomorrow will discuss TPN with patient and -Discussed with Dr. Enriquez Attending Note - Dr. Enriquez Abdomen remain distended, but nontender Some erythema on abdominal wall Destiny intact. Gastrografin enema today The exam, history, and the medical decision-making described in the above note were completed with the assistance of the mid-level provider. I reviewed and agree with the findings presented. I attest that I had a [id number] encounter with the patient on the same day, and personally performed and documented my assessment and findings in the medical record. Problem Qualifiers (1) Hypertension: Qualified Code: I15.9 - Secondary hypertension Neeru Adam Jan 13, 2017 16:39 Jaret Enriquez MD Jan 14, 2017 10:16
[2017-01-13] MEDS: PANTOPRAZOLE SODIUM 40 MG VIAL IV PUSH SCH (20:49)
[2017-01-14] VITALS (7 sets, daily range): BP systolic 124–144; BP diastolic 73–97; PULSE 99–111; RESP 16–20; TEMP 95.8–98.4; O2SAT 92–97
[2017-01-14] MEDS: MORPHINE SULFATE 4 MG/ML INJ IV PUSH PRN (03:34)
[2017-01-14] MEDS: RESP: ALBUTEROL 2.5 MG/IPRATROPIUM 0.5 MG NEB (SCH) NEB ×4 (04:13→20:40)
[2017-01-14] MEDS: PANTOPRAZOLE SOD 40 MG DELAYED RELEASE TAB PO SCH (07:43)
[2017-01-14] MEDS: LOSARTAN 50 MG TAB PO SCH (07:43)
[2017-01-14] MEDS: PRAVASTATIN SOD 40 MG TAB PO SCH (07:43)
[2017-01-14] MEDS: THIAMINE INJ 100 MG in SODIUM CHLORIDE 0.9% INJ 100 ML IV SCH (07:44)
[2017-01-14] MEDS: CITALOPRAM HYDROBROMIDE 20 MG TAB PO SCH (07:44)
[2017-01-14] MEDS: cefTAZidime INJ 2,000 MG in SODIUM CHLORIDE 0.9% INJ 100 ML IV SCH ×2 (07:45→22:40)
[2017-01-14] MEDS: ENOXAPARIN SODIUM 30 MG/0.3 ML SYRINGE SQ SCH (07:45)
[2017-01-14] MEDS: SODIUM CHLORIDE 0.9% FLUSH 5 ML FLUSH FLUSH SCH ×2 (08:01→21:04)
[2017-01-14] MEDS: TRIAMTERENE 37.5 MG PO SCH (08:02)
[2017-01-14] MEDS: D5-1/4 NS + KCL 20 MEQ INJ 1,000 ML IV SCH (08:02)
--- NOTE | 2017-01-14 11:09 | HHI.PR ---
Subjective Remarks Follow up for small bowel obstruction. Patient is currently doing well. No fever , chills. No BM or flatus yet. Denies any abdominal pain. Family members at bedside. Patient cannot sleep at night due to restless leg syndrome. Ambien has paradoxical effect. Objective Vitals Vital Signs Date Time Temp Pulse Resp B/P Pulse Ox O2 Delivery O2 Flow Rate FiO2 01/14/17 08:00 95.8 111 20 144/97 96 01/14/17 04:41 16 01/14/17 04:15 97 Nasal Cannula 3.00 01/14/17 00:00 97.6 106 20 141/78 94 01/13/17 20:10 Room Air 01/13/17 20:00 98.7 91 20 154/84 92 01/13/17 16:00 97.1 99 17 167/72 95 01/13/17 12:00 97.8 91 17 154/80 95 I/O 01/13/17 01/13/17 01/13/17 01/14/17 01/14/17 01/14/17 07:00 15:00 23:00 07:00 15:00 23:00 Intake Total 668 ml 824 ml 1370 ml Output Total 245 ml 350 ml 380 ml Balance 423 ml 474 ml 990 ml Intake Oral 0 ml 240 ml IV Total 668 ml 824 ml 1130 ml Output Urine Total 150 ml Gastric Drainage Total 200 ml 100 ml 300 ml Drainage Total 45 ml 100 ml 80 ml # Voids 2 5 3 3 # Bowel Movements 0 0 2 0 Result Diagram: 01/12/17 1429 01/13/17 0500 Imaging Last Impressions Enema w/Water Soluble 01/13/17 0000 Signed Impressions: Service Date/Time: December 14:21 - CONCLUSION: 1. No evidence of colonic obstruction. 2. Uncomplicated colonic diverticulosis. 3. Multiple air-filled loops of small bowel suggesting partial small bowel obstruction or ileus. Clinical correlation is recommended. 4. Degenerative changes and mild scoliosis of the lumbar spine. Sunny Batista MD Abdomen X-Ray 01/12/17 1042 Signed Impressions: Service Date/Time: Thursday, January 12, 2017 10:52 - CONCLUSION: 1. Postoperative changes as detailed above. 2. Left distention of small bowel loops and I suspect there is some air now seen in portions of the colon. No findings of obstruction or pneumoperitoneum. 3. NG tube with the tip in the gastric antrum . Chepe Bai MD Chest X-Ray 01/10/17 0000 Signed Impressions: Service Date/Time: Tuesday, January 10, 2017 21:22 - CONCLUSION: No acute disease. No significant change has occurred. Dylon Sesay MD Renal Ultrasound 01/08/17 0000 Signed Impressions: Service Date/Time: Sunday, January 08, 2017 07:43 - CONCLUSION: No acute findings. No hydronephrosis. Trace free fluid near left kidney. Eric Patel MD Abdomen/Pelvis CT 01/05/17 1747 Signed Impressions: Service Date/Time: Thursday, January 05, 2017 18:56 - CONCLUSION: 1. Wall bowel obstruction is noted with transition point in the right lower quadrant. Jayden Youssef MD Objective Remarks GENERAL: AOX3, NAD. SKIN: Warm and dry. HEAD: Normocephalic. EYES: No scleral icterus. No injection or drainage. NECK: Supple, trachea midline. No JVD or lymphadenopathy. CARDIOVASCULAR: Regular rate and rhythm without murmurs, gallops, or rubs. RESPIRATORY: Breath sounds equal bilaterally. No accessory muscle use. GASTROINTESTINAL: Abdomen distended, hypoactive BS, non-tender to palpation. MUSCULOSKELETAL: No cyanosis, or edema. BACK: Nontender without obvious deformity. No CVA tenderness. Procedures 01/07/2017 OPERATIVE PROCEDURE PERFORMED: 1. Diagnostic laparoscopy 2. Laparoscopic lysis of adhesions. 3. Exploratory laparotomy with decompression of small bowel and lysis of adhesions. A/P Problem List: (1) Small bowel obstruction ICD Code: K56.69 Status: Acute (2) Abdominal pain ICD Code: R10.9 Status: Acute (3) Hypertension ICD Code: I10 Status: Acute (4) Hyperlipidemia ICD Code: E78.5 Status: Acute (5) GERD (gastroesophageal reflux disease) ICD Code: K21.9 Status: Acute Assessment and Plan Mr. King is a pleasant 86 year old male with a history of HTN, HLD, GERD, previous colon resection who was admitted to the hospital on 01/05/2017 due to abdominal pain, distention. He was diagnosed with SBO and patient underwent Ex Lap on 01/07/2017. Acute small bowel obstruction with presenting abdominal pain distention: Increased risk factors from previous abdominal surgery. CT scan showed small bowel obstruction with transition zone. Gen. surgery following. Pt is s/p Laparoscopic lysis of adhesions, followed by exploratory laparotomy and small bowel decompression through enterostomy on 01/07/2017. - Morphine for pain control, Zofran for nausea vomiting - Postop wound management per Dr. Enriquez. NG tube in place. Continue pain control. Continue IV fluids. - blood cx Coag negative staph and Corynebacterium sp. Patient is currently on Ceftazidime. - KUB done. Left distention of small bowel loops and suspect there is some air now seen in portions of the colon. No findings of obstruction or pneumoperitoneum. NG tube with the tip in the gastric antrum. - Gastrografin enema given - shows no colonic obstruction but shows partial SBO. Hypomagnesemia - Mag 1.7 - received 1 g of MgSO4 IV Mild hypernatremia - Na 145 - IV fluids changed to D5 1/4 NS + KCl 20 MEQ 125 ML's an hour - Will obtain CBC, BMP in the AM. - Acute delirium - probably due to Ativan given yesterday. - He is very cooperative and pleasant now. - Calm and cooperative on exam. - Will use Haloperidol if needed. --Hypotension, resolved now hypertensive - Post op, pt became severely hypotensive and required levophed Gtt. Pt was transferred to the ICU and was under the care of the critical care team: - Received 4 L of crystalloids in the OR, additional 4.5 L boluses post op with improving urine output. - Currently blood pressure normotensive or slightly hypertensive. - Start Vasotec 1.25mg IV Q6 when necessary, clonidine 0.1 mg Q6 when necessary. Amlodipine 5mg Qday. Acute renal failure: now improving. nephrology following. Suspected ATN from hypotension. Creatinine peaked to 5.90, improved to 1.06 on 01/11/2017. - Mild hypokalemia - KCL replacement ordered by surgery team. K+ improved to 3.5 -->4.3 - Restless leg syndrome - Insomnia - Nocturnal agitation - Per patient's family's request, we will give 2mg of Ropinirole this morning. - home med Ropinirole 2mg Qday. Will increase to 2.5mg Qday. - Check CBC, BMP as well as Iron panel in the AM. - Will give 25 of Seroquel at night today to see if that helps with agitation as well as insomnia. - Sitter at night. --Prior tobacco use -Nasal cannula oxygen -DuoNeb every 6 hours and when necessary -Aggressive pulmonary toilet, incentive spirometry, Acapella -Ativan if needed for alcohol withdrawal and agitation. Supplement thiamine. Full code. Ambulation. Lovenox 30mg Q24 Problem Qualifiers (1) Abdominal pain: Qualified Code: R10.84 - Generalized abdominal pain (2) Hypertension: Qualified Code: I15.9 - Secondary hypertension (3) Hyperlipidemia: Qualified Code: E78.5 - Hyperlipidemia, unspecified hyperlipidemia type Alin Darby DO Jan 14, 2017 11:09 am
--- NOTE | 2017-01-14 11:27 | HHI.PR ---
Subjective Subjective Notes Up to chair Family at bedside---reports Mr. King had a restless night Objective Vitals/I&O Vital Signs Date Time Temp Pulse Resp B/P Pulse Ox O2 Delivery O2 Flow Rate FiO2 01/14/17 08:00 95.8 111 20 144/97 96 01/14/17 04:15 Nasal Cannula 3.00 01/11/17 08:20 30 Radiology Last Impressions Renal Ultrasound 01/08/17 0000 Signed Impressions: Service Date/Time: Sunday, January 08, 2017 07:43 - CONCLUSION: No acute findings. No hydronephrosis. Trace free fluid near left kidney. Eric Patel MD Chest X-Ray 01/08/17 0000 Signed Impressions: Service Date/Time: Sunday, January 08, 2017 06:33 - CONCLUSION: 1. NG enters stomach. A central line in superior vena cava. Mild basilar airspace disease. Eric Patel MD Abdomen X-Ray 01/06/17 0600 Signed Impressions: Service Date/Time: December 06:05 - CONCLUSION: Dilated air-filled small bowel with paucity of gas in the colon. Findings are again suspicious for small bowel obstruction. Jung Art MD Abdomen/Pelvis CT 01/05/17 1747 Signed Impressions: Service Date/Time: Thursday, January 05, 2017 18:56 - CONCLUSION: 1. Wall bowel obstruction is noted with transition point in the right lower quadrant. Jayden Youssef MD Cardiovascular: Regular Lungs: Clear Abdomen: Other (abdomen distended; midline incision with katherin ) Extremities: No edema A/P Problem List: (1) Small bowel obstruction (2) Hypertension (3) Acute kidney injury (4) S/P exploratory laparotomy Assessment and Plan 86 year old male with SBO; POD7 ex lap; BENJAMIN -Continue NGT to LIWS -Sips and ice chips okay along with swabs -Start TPN -PT eval and treat -OOB and mobilize--chair TID -Discussed with Dr. Enriquez Attending Note - Dr. Enriquez Abdomen remains distended BM's due to gastrografin enema Will start TPN today; discussed with patient, , and daughter The exam, history, and the medical decision-making described in the above note were completed with the assistance of the mid-level provider. I reviewed and agree with the findings presented. I attest that I had a [id number] encounter with the patient on the same day, and personally performed and documented my assessment and findings in the medical record. Problem Qualifiers (1) Hypertension: Qualified Code: I15.9 - Secondary hypertension Neeru Adam Jan 14, 2017 11:27 Jaret Enriquez MD Jan 18, 2017 10:16
[2017-01-14] MEDS: ERYTHROMYCIN INJ 250 MG in SODIUM CHLORIDE 0.9% INJ 100 ML IV SCH ×3 (11:41→23:27)
--- NOTE | 2017-01-14 11:42 | RADRPT ---
EXAM DATE/TIME: 01/14/2017 10:48 [facility] COMPARISON: ABDOMEN KUB ONLY, January 12, 2017, 10:52. INDICATIONS : Small bowel obstruction. MEDICAL HISTORY : None. SURGICAL HISTORY : None. ENCOUNTER: Initial ACUITY: 1 day PAIN SCORE: Non-responsive. LOCATION: Abdomen FINDINGS: Supine view of the abdomen was performed. Contrast is seen in the colon. Nonobstructive bowel gas pat tern with some air in small bowel loops and colon itself. Midline superficial skin katherin with a pro bable JANE type drain in the left mid pelvis. NG tube with the tip in the expected location of the dist al stomach. CONCLUSION: 1. Improving bowel gas pattern without obstruction. Previous pattern was probably a hypodynamic ileus . 2. No pneumoperitoneum. 3. Postsurgical changes as above Chepe Bai MD on January 14, 2017 at 11:37 Board Certified Radiologist. This report was verified electronically.
[2017-01-14] MEDS: METOCLOPRAMIDE HCL 10 MG/2 ML VIAL IV PUSH SCH ×2 (12:51→21:02)
[2017-01-14 13:30] LABS: MAGNESIUM 1.5 MG/DL (1.5-2.5)
[2017-01-14] MEDS ORDERED: SODIUM CHLORIDE 0.9% FLUSH 10 ML FLUSH IV FLUSH PRN (14:00)
--- NOTE | 2017-01-14 14:00 | RADRPT ---
EXAM DATE/TIME: 01/14/2017 13:15 [facility] COMPARISON: CHEST SINGLE AP, January 10, 2017, 21:22. INDICATIONS : Evaluate heart and lungs post PICC placement. MEDICAL HISTORY : None. SURGICAL HISTORY : None. ENCOUNTER: Subsequent ACUITY: 3 days PAIN SCORE: 0/10 LOCATION: Chest FINDINGS: The right-sided PICC line has its tip at the junction of the superior vena cava and right atrium. Mi nimal right basilar streakiness is noted consistent with probable atelectasis. A nasogastric tube hill s its tip below the diaphragm. The left lung is clear. Degenerative changes are noted throughout th e thoracic spine. The heart and mediastinal structures are unremarkable. CONCLUSION: 1. Right-sided PICC line has its tip in good position at the junction of the superior vena cava and right atrium. 2. Minimal right basilar streakiness consistent with probable atelectasis. 3. Degenerative changes throughout the thoracic spine. Sunny Batista MD on January 14, 2017 at 13:41 Board Certified Radiologist. This report was verified electronically.
[2017-01-14] MEDS: ARTIFICIAL TEARS OPTH OINT 3.5 APPLIC/3.5 GM TUBO EACH EYE SCH ×2 (14:44→21:04)
[2017-01-14] MEDS: MAGNESIUM SULFATE 1 GM PREMIX 100 ML IV SCH ×2 (16:13→18:08)
[2017-01-14 17:51] LABS: AUTOMATED NEUTROPHIL # 8.3 TH/MM3 (1.8-7.7); BASOPHIL % 0.2 % (0.0-2.0); EOSINOPHIL # 0.1 TH/MM3 (0-0.4); EOSINOPHIL % 0.9 % (0.0-4.0); HEMATOCRIT 30.2 % (39.0-51.0); HEMO FLAGS AUTO DIFF; LYMPH % 7.8 % (9.0-44.0); LYMPHOCYTE # 0.8 TH/MM3 (1.0-4.8); MEAN CELL VOLUME 94.7 FL (80.0-100.0); MEAN CORPUSCULAR HEMOGLOBIN 31.1 PG (27.0-34.0); MEAN CORPUSCULAR HGB CONC 32.8 % (32.0-36.0); MONO % 7.1 % (0.0-8.0); PLATELET COUNT 198 TH/MM3 (150-450); RED BLOOD COUNT 3.19 MIL/MM3 (4.50-5.90); RED CELL DISTRIBUTION WIDTH 11.9 % (11.6-17.2); WHITE BLOOD COUNT 9.9 TH/MM3 (4.0-11.0)
[2017-01-14 18:08] LABS: PROTHROMBIN TIME - PATIENT 11.6 SEC (9.8-11.6)
[2017-01-14 18:18] LABS: ANION GAP 9 MEQ/L (5-15); AST (GOT) 22 U/L (15-37); BICARBONATE 23.6 MEQ/L (21.0-32.0); BLOOD UREA NITROGEN 11 MG/DL (7-18); CHLORIDE 99 MEQ/L (98-107); GLOMERULAR FILTRATION RATE 65 ML/MIN (>89); POTASSIUM 4.7 MEQ/L (3.5-5.1); SODIUM (NA) 132 MEQ/L (136-145)
[2017-01-14 19:29] LABS: ALKALINE PHOSPHATASE 50 U/L (45-117); ALT (GPT) 23 U/L (12-78); TOTAL BILIRUBIN ADULT 0.6 MG/DL (0.2-1.0)
[2017-01-14 19:44] LABS: BANDS 6 % (0-6); EOSINOPHILS 3 % (0-4); METAMYELOCYTES 2 % (0-1); MYELOCYTES 2 % (0-0); NEUTROPHIL # MANUAL DIFF 8.9 TH/MM3 (1.8-7.7); POLYS (SEG NEUTROPHILS) 80 % (16-70); WBC DIFF SAMPLE 100
[2017-01-14 19:45] LABS: PLATELET ESTIMATE SMEAR NORMAL (NORMAL); PLATELET MORPHOLOGY NORMAL (NORMAL); SCAN/DIFF FINAL DIFF MANUAL
[2017-01-14] MEDS: QUEtiapine FUMARATE 25 MG TAB PO SCH ×2 (21:00→21:02)
[2017-01-14] MEDS: CLINIMIX E 4.25/25 2000 mL- >42 mls/hr IV-CENTRAL SCH ×3 (21:00)
[2017-01-14] MEDS: FAT EMULSION 20% INJ 250 ML (Daily over 8 hours) IV-CENTRAL SCH (21:01)
[2017-01-14] MEDS: PANTOPRAZOLE SODIUM 40 MG VIAL IV PUSH SCH (21:02)
[2017-01-15] VITALS (8 sets, daily range): BP systolic 131–192; BP diastolic 78–90; PULSE 89–95; RESP 17–20; TEMP 96.9–98.1; O2SAT 94–97
[2017-01-15] MEDS: RESP: ALBUTEROL 2.5 MG/IPRATROPIUM 0.5 MG NEB (SCH) NEB (03:41)
[2017-01-15] MEDS: ERYTHROMYCIN INJ 250 MG in SODIUM CHLORIDE 0.9% INJ 100 ML IV SCH ×3 (04:56→18:15)
[2017-01-15] MEDS: METOCLOPRAMIDE HCL 10 MG/2 ML VIAL IV PUSH SCH ×3 (04:57→21:03)
[2017-01-15] MEDS: ARTIFICIAL TEARS OPTH OINT 3.5 APPLIC/3.5 GM TUBO EACH EYE SCH ×3 (07:31→21:18)
[2017-01-15 07:35] LABS: AUTOMATED NEUTROPHIL # 11.7 TH/MM3 (1.8-7.7); BASOPHIL # 0.1 TH/MM3 (0-0.2); BASOPHIL % 0.6 % (0.0-2.0); EOSINOPHIL # 0.2 TH/MM3 (0-0.4); EOSINOPHIL % 1.7 % (0.0-4.0); HEMATOCRIT 29.8 % (39.0-51.0); LYMPH % 7.6 % (9.0-44.0); MEAN CELL VOLUME 93.2 FL (80.0-100.0); MEAN CORPUSCULAR HEMOGLOBIN 32.1 PG (27.0-34.0); MEAN CORPUSCULAR HGB CONC 34.5 % (32.0-36.0); MONO % 5.8 % (0.0-8.0); NEUT % 84.3 % (16.0-70.0); PLATELET COUNT 190 TH/MM3 (150-450); RED BLOOD COUNT 3.19 MIL/MM3 (4.50-5.90); RED CELL DISTRIBUTION WIDTH 12.1 % (11.6-17.2); WHITE BLOOD COUNT 13.8 TH/MM3 (4.0-11.0)
[2017-01-15 08:08] LABS: ANION GAP 9 MEQ/L (5-15); BICARBONATE 25.8 MEQ/L (21.0-32.0); BLOOD UREA NITROGEN 12 MG/DL (7-18); CHLORIDE 106 MEQ/L (98-107); GLOMERULAR FILTRATION RATE 68 ML/MIN (>89); POTASSIUM 3.5 MEQ/L (3.5-5.1); SODIUM (NA) 141 MEQ/L (136-145); TRANSFERRIN IRON PROFILE 125 MG/DL (200-360)
[2017-01-15 08:19] LABS: HEMO FLAGS AUTO DIFF
[2017-01-15] MEDS: ENOXAPARIN SODIUM 30 MG/0.3 ML SYRINGE SQ SCH (08:36)
[2017-01-15] MEDS: THIAMINE INJ 100 MG in SODIUM CHLORIDE 0.9% INJ 100 ML IV SCH (08:36)
[2017-01-15] MEDS: CITALOPRAM HYDROBROMIDE 20 MG TAB PO SCH (08:36)
[2017-01-15] MEDS: TRIAMTERENE 37.5 MG PO SCH (08:37)
[2017-01-15] MEDS: SODIUM CHLORIDE 0.9% FLUSH 5 ML FLUSH FLUSH SCH ×2 (08:37→21:03)
[2017-01-15] MEDS: SODIUM CHLORIDE 0.9% FLUSH 10 ML FLUSH IV FLUSH SCH (08:37)
--- NOTE | 2017-01-15 08:40 | HHI.PR ---
Subjective Remarks Follow up for small bowel obstruction. Mr. King had BM yesterday and small BM yesterday. No fever, chills. Wants to go home soon. Objective Vitals Vital Signs Date Time Temp Pulse Resp B/P Pulse Ox O2 Delivery O2 Flow Rate FiO2 01/15/17 03:44 95 Nasal Cannula 3.00 01/15/17 00:00 98.0 95 18 142/90 94 01/14/17 20:00 98.4 99 20 144/84 93 01/14/17 19:30 Room Air 01/14/17 16:31 97 Nasal Cannula 3.00 01/14/17 16:00 98.1 101 20 124/73 92 01/14/17 12:00 97.4 100 16 130/81 95 I/O 01/14/17 01/14/17 01/14/17 01/15/17 01/15/17 01/15/17 07:00 15:00 23:00 07:00 15:00 23:00 Intake Total 1370 ml 1679 ml 0 ml 0 ml 1947 ml Output Total 380 ml 200 ml 975 ml Balance 990 ml 1479 ml 0 ml -975 ml 1947 ml Intake Oral 240 ml 0 ml 0 ml IV Total 1130 ml 1679 ml 1947 ml Gastric Drainage Total 300 ml 150 ml 975 ml Drainage Total 80 ml 50 ml # Voids 3 3 2 1 # Bowel Movements 0 1 Result Diagram: 01/15/17 0500 01/15/17 0500 Imaging Last Impressions Chest X-Ray 01/14/17 0000 Signed Impressions: Service Date/Time: Saturday, January 14, 2017 13:15 - CONCLUSION: 1. Right- sided PICC line has its tip in good position at the junction of the superior vena cava and right atrium. 2. Minimal right basilar streakiness consistent with probable atelectasis. 3. Degenerative changes throughout the thoracic spine. Sunny Batista MD Abdomen X-Ray 01/14/17 0000 Signed Impressions: Service Date/Time: Saturday, January 14, 2017 10:48 - CONCLUSION: 1. Improving bowel gas pattern without obstruction. Previous pattern was probably a hypodynamic ileus. 2. No pneumoperitoneum. 3. Postsurgical changes as above Chepe Bai MD Enema w/Water Soluble 01/13/17 0000 Signed Impressions: Service Date/Time: December 14:21 - CONCLUSION: 1. No evidence of colonic obstruction. 2. Uncomplicated colonic diverticulosis. 3. Multiple air-filled loops of small bowel suggesting partial small bowel obstruction or ileus. Clinical correlation is recommended. 4. Degenerative changes and mild scoliosis of the lumbar spine. Sunny Batista MD Renal Ultrasound 01/08/17 0000 Signed Impressions: Service Date/Time: Sunday, January 08, 2017 07:43 - CONCLUSION: No acute findings. No hydronephrosis. Trace free fluid near left kidney. Eric Patel MD Abdomen/Pelvis CT 01/05/17 1747 Signed Impressions: Service Date/Time: Thursday, January 05, 2017 18:56 - CONCLUSION: 1. Wall bowel obstruction is noted with transition point in the right lower quadrant. Jayden Youssef MD Objective Remarks GENERAL: AOX3, NAD. SKIN: Warm and dry. HEAD: Normocephalic. EYES: No scleral icterus. No injection or drainage. NECK: Supple, trachea midline. No JVD or lymphadenopathy. CARDIOVASCULAR: Regular rate and rhythm without murmurs, gallops, or rubs. RESPIRATORY: Breath sounds equal bilaterally. No accessory muscle use. GASTROINTESTINAL: Abdomen distended, hypoactive BS, non-tender to palpation. MUSCULOSKELETAL: No cyanosis, or edema. BACK: Nontender without obvious deformity. No CVA tenderness. Procedures 01/07/2017 OPERATIVE PROCEDURE PERFORMED: 1. Diagnostic laparoscopy 2. Laparoscopic lysis of adhesions. 3. Exploratory laparotomy with decompression of small bowel and lysis of adhesions. A/P Problem List: (1) Small bowel obstruction ICD Code: K56.69 Status: Acute (2) Abdominal pain ICD Code: R10.9 Status: Acute (3) Hypertension ICD Code: I10 Status: Acute (4) Hyperlipidemia ICD Code: E78.5 Status: Acute (5) GERD (gastroesophageal reflux disease) ICD Code: K21.9 Status: Acute Assessment and Plan Mr. King is a pleasant 86 year old male with a history of HTN, HLD, GERD, previous colon resection who was admitted to the hospital on 01/05/2017 due to abdominal pain, distention. He was diagnosed with SBO and patient underwent Ex Lap on 01/07/2017. Acute small bowel obstruction with presenting abdominal pain distention: Increased risk factors from previous abdominal surgery. CT scan showed small bowel obstruction with transition zone. Gen. surgery following. Pt is s/p Laparoscopic lysis of adhesions, followed by exploratory laparotomy and small bowel decompression through enterostomy on 01/07/2017. - Morphine for pain control, Zofran for nausea vomiting - Postop wound management per Dr. Enriquez. NG tube in place. Continue pain control. Continue IV fluids. - blood cx Coag negative staph and Corynebacterium sp. Patient is currently on Ceftazidime. - KUB done. Left distention of small bowel loops and suspect there is some air now seen in portions of the colon. No findings of obstruction or pneumoperitoneum. NG tube with the tip in the gastric antrum. - Gastrografin enema given - shows no colonic obstruction but shows partial SBO. Hypomagnesemia - Mag 1.7 - received 1 g of MgSO4 IV Mild hypernatremia - Na 145 - IV fluids changed to D5 1/4 NS + KCl 20 MEQ 125 ML's an hour - Will obtain CBC, BMP in the AM. - Acute delirium - probably due to Ativan given yesterday. - He is very cooperative and pleasant now. - Calm and cooperative on exam. - Will use Haloperidol if needed. --Hypotension, resolved now hypertensive - Post op, pt became severely hypotensive and required levophed Gtt. Pt was transferred to the ICU and was under the care of the critical care team: - Received 4 L of crystalloids in the OR, additional 4.5 L boluses post op with improving urine output. - Currently blood pressure normotensive or slightly hypertensive. - Start Vasotec 1.25mg IV Q6 when necessary, clonidine 0.1 mg Q6 when necessary. Amlodipine 5mg Qday. Acute renal failure: now improving. nephrology following. Suspected ATN from hypotension. Creatinine peaked to 5.90, improved to 1.06 on 01/11/2017. - Mild hypokalemia - KCL replacement ordered by surgery team. K+ improved to 3.5 -->4.3 - Restless leg syndrome - Insomnia - Nocturnal agitation - Per patient's family's request, we will give 2mg of Ropinirole this morning. - home med Ropinirole 2mg Qday. Will increase to 2.5mg Qday. - Check CBC, BMP as well as Iron panel in the AM. - Will give 25 of Seroquel at night today to see if that helps with agitation as well as insomnia. - Sitter at night. --Prior tobacco use -Nasal cannula oxygen -DuoNeb every 6 hours and when necessary -Aggressive pulmonary toilet, incentive spirometry, Acapella -Ativan if needed for alcohol withdrawal and agitation. Supplement thiamine. Full code. Ambulation. Lovenox 30mg Q24 Problem Qualifiers (1) Abdominal pain: Qualified Code: R10.84 - Generalized abdominal pain (2) Hypertension: Qualified Code: I15.9 - Secondary hypertension (3) Hyperlipidemia: Qualified Code: E78.5 - Hyperlipidemia, unspecified hyperlipidemia type Alin Darby DO Jan 15, 2017 08:40
[2017-01-15] MEDS ORDERED: GLUCAGON 1 MG/ML VIAL OTHER PRN (08:45)
[2017-01-15] MEDS ORDERED: DEXTROSE 50% IN WATER 50 ML VIAL(D50) IV PUSH PRN (08:45)
[2017-01-15] MEDS: LOSARTAN 50 MG TAB PO SCH (08:55)
[2017-01-15] MEDS: PRAVASTATIN SOD 40 MG TAB PO SCH (08:55)
[2017-01-15] MEDS: cefTAZidime INJ 2,000 MG in SODIUM CHLORIDE 0.9% INJ 100 ML IV SCH ×2 (08:56→21:03)
[2017-01-15 09:01] LABS: BANDS 8 % (0-6); EOSINOPHILS 1 % (0-4); METAMYELOCYTES 5 % (0-1); NEUTROPHIL # MANUAL DIFF 11.7 TH/MM3 (1.8-7.7); PLATELET ESTIMATE SMEAR NORMAL (NORMAL); PLATELET MORPHOLOGY NORMAL (NORMAL); POLYS (SEG NEUTROPHILS) 72 % (16-70); SCAN/DIFF FINAL DIFF MANUAL; WBC DIFF SAMPLE 100
[2017-01-15] MEDS: INSULIN ASPART SUPPLEMENTAL SCALE SQ SCH ×3 (11:00→21:00)
--- NOTE | 2017-01-15 12:40 | HHI.PR ---
Subjective Subjective Notes feels fine, had another BM, mouth very dry, walking around some Objective Vitals/I&O Vital Signs Date Time Temp Pulse Resp B/P Pulse Ox O2 Delivery O2 Flow Rate FiO2 01/15/17 10:32 96 21 01/15/17 08:00 97.3 89 17 174/82 01/15/17 03:44 Nasal Cannula 3.00 Labs Laboratory Tests Test 01/14/17 01/14/17 01/15/17 17:20 18:40 05:00 White Blood Count 9.9 13.8 Red Blood Count 3.19 3.19 Hemoglobin 9.9 10.3 Hematocrit 30.2 29.8 Mean Corpuscular Volume 94.7 93.2 Mean Corpuscular Hemoglobin 31.1 32.1 Mean Corpuscular Hemoglobin 32.8 34.5 Concent Red Cell Distribution Width 11.9 12.1 Platelet Count 198 190 Mean Platelet Volume 7.8 8.8 Neutrophils (%) (Auto) 84.0 84.3 Lymphocytes (%) (Auto) 7.8 7.6 Monocytes (%) (Auto) 7.1 5.8 Eosinophils (%) (Auto) 0.9 1.7 Basophils (%) (Auto) 0.2 0.6 Neutrophils # (Auto) 8.3 11.7 Lymphocytes # (Auto) 0.8 1.0 Monocytes # (Auto) 0.7 0.8 Eosinophils # (Auto) 0.1 0.2 Basophils # (Auto) 0.0 0.1 CBC Comment AUTO DIFF AUTO DIFF Differential Total Cells 100 100 Counted Neutrophils % (Manual) 80 72 Band Neutrophils % 6 8 Lymphocytes % 2 11 Monocytes % 5 3 Eosinophils % 3 1 Neutrophils # (Manual) 8.9 11.7 Metamyelocytes 2 5 Myelocytes 2 Differential Comment FINAL DIFF FINAL DIFF MANUAL MANUAL Platelet Estimate NORMAL NORMAL Platelet Morphology Comment NORMAL NORMAL Prothrombin Time 11.6 Prothromb Time International 1.0 Ratio Sodium Level 132 141 Potassium Level 4.7 3.5 Chloride Level 99 106 Carbon Dioxide Level 23.6 25.8 Anion Gap 9 9 Blood Urea Nitrogen 11 12 Creatinine 1.08 1.04 Estimat Glomerular Filtration 65 68 Rate Random Glucose 110 349 Calcium Level 8.1 8.3 Total Bilirubin 0.6 Aspartate Amino Transf 22 (AST/SGOT) Alanine Aminotransferase 23 (ALT/SGPT) Alkaline Phosphatase 50 Total Protein 5.8 Albumin 2.4 Triglycerides Level 113 Iron Level 19 Total Iron Binding Capacity 175 Percent Iron Saturation 10.9 Radiology Last Impressions Renal Ultrasound 01/08/17 0000 Signed Impressions: Service Date/Time: Sunday, January 08, 2017 07:43 - CONCLUSION: No acute findings. No hydronephrosis. Trace free fluid near left kidney. Eric Patel MD Chest X-Ray 01/08/17 0000 Signed Impressions: Service Date/Time: Sunday, January 08, 2017 06:33 - CONCLUSION: 1. NG enters stomach. A central line in superior vena cava. Mild basilar airspace disease. Eric Patel MD Abdomen X-Ray 01/06/17 0600 Signed Impressions: Service Date/Time: December 06:05 - CONCLUSION: Dilated air-filled small bowel with paucity of gas in the colon. Findings are again suspicious for small bowel obstruction. Jung Art MD Abdomen/Pelvis CT 01/05/17 1747 Signed Impressions: Service Date/Time: Thursday, January 05, 2017 18:56 - CONCLUSION: 1. Wall bowel obstruction is noted with transition point in the right lower quadrant. Jayden Youssef MD Abdomen: Post-op tenderness Narrative Exam wound with some redness along katherin, no drainage. NG still putting out over 1L of bilious drainage. A/P Problem List: (1) Small bowel obstruction (2) Hypertension (3) Acute kidney injury (4) S/P exploratory laparotomy Assessment and Plan s/p exp lap/sbo bowel function returning but still very distended and has large NG output add some popcicles for dry mouth labs ok Problem Qualifiers (1) Hypertension: Qualified Code: I15.9 - Secondary hypertension Liang Pop MD Jan 15, 2017 12:40
[2017-01-15] MEDS ORDERED: TRIA37.53 PO (14:14)
[2017-01-15] MEDS: RESP: ALBUTEROL 2.5 MG/IPRATROPIUM 0.5 MG NEB (PRN) NEB (19:16)
[2017-01-15] MEDS: QUEtiapine FUMARATE 25 MG TAB PO SCH (21:00)
[2017-01-15] MEDS: PANTOPRAZOLE SODIUM 40 MG VIAL IV PUSH SCH (21:02)
[2017-01-15] MEDS: FAT EMULSION 20% INJ 250 ML (Daily over 8 hours) IV-CENTRAL SCH (21:03)
[2017-01-15] MEDS: CLINIMIX E 4.25/25 2000 mL- >42 mls/hr IV-CENTRAL SCH ×3 (21:04)
[2017-01-16] VITALS: BP 134/75; PULSE 90; RESP 20; TEMP 98.3; O2SAT 95
[2017-01-16] MEDS: ERYTHROMYCIN INJ 250 MG in SODIUM CHLORIDE 0.9% INJ 100 ML IV SCH ×4 (00:17→17:26)
[2017-01-16 04:00] VITALS: BP 140/87; PULSE 89; RESP 20; TEMP 98.2; O2SAT 95
[2017-01-16] MEDS: METOCLOPRAMIDE HCL 10 MG/2 ML VIAL IV PUSH SCH ×3 (05:17→20:55)
[2017-01-16] MEDS: ARTIFICIAL TEARS OPTH OINT 3.5 APPLIC/3.5 GM TUBO EACH EYE SCH ×3 (05:19→20:54)
[2017-01-16] MEDS: INSULIN ASPART SUPPLEMENTAL SCALE SQ SCH ×4 (05:19→21:00)
[2017-01-16] MEDS: ENOXAPARIN SODIUM 30 MG/0.3 ML SYRINGE SQ SCH (06:48)
[2017-01-16 08:00] VITALS: BP 165/77; PULSE 89; RESP 17; TEMP 98.5; O2SAT 95
[2017-01-16] MEDS: LOSARTAN 50 MG TAB PO SCH (08:30)
[2017-01-16] MEDS: CITALOPRAM HYDROBROMIDE 20 MG TAB PO SCH (08:30)
[2017-01-16] MEDS: TRIAMTERENE/HCTZ 37.5 MG/25 MG CAP PO SCH (08:30)
[2017-01-16] MEDS: SODIUM CHLORIDE 0.9% FLUSH 5 ML FLUSH FLUSH SCH ×2 (08:31→20:56)
[2017-01-16] MEDS: cefTAZidime INJ 2,000 MG in SODIUM CHLORIDE 0.9% INJ 100 ML IV SCH ×2 (08:31→20:54)
[2017-01-16] MEDS: SODIUM CHLORIDE 0.9% FLUSH 10 ML FLUSH IV FLUSH SCH (08:31)
[2017-01-16] MEDS: THIAMINE INJ 100 MG in SODIUM CHLORIDE 0.9% INJ 100 ML IV SCH (08:31)
[2017-01-16] MEDS: PRAVASTATIN SOD 40 MG TAB PO SCH (08:31)
[2017-01-16] MEDS ORDERED: PILL SPLITTER OTHER PRN (11:30)
[2017-01-16 12:00] VITALS: BP 148/77; PULSE 88; RESP 17; TEMP 98; O2SAT 96
[2017-01-16] MEDS ORDERED: QUEtiapine FUMARATE 25 MG TAB PO ONE (12:00)
--- NOTE | 2017-01-16 12:16 | HHI.PR ---
Subjective Remarks Follow-up for small bowel obstruction. Patient is currently doing well, ambulating in the hallway with his walker. No fever, chills. Had flatus but no significant bowel movements. NG tube continues to drain. Objective Vitals Vital Signs Date Time Temp Pulse Resp B/P Pulse Ox O2 Delivery O2 Flow Rate FiO2 01/16/17 08:00 98.5 89 17 165/77 95 01/16/17 04:00 98.2 89 20 140/87 95 01/16/17 00:00 98.3 90 20 134/75 95 01/15/17 21:05 Room Air 01/15/17 20:00 98.1 94 20 131/78 96 01/15/17 19:18 97 Nasal Cannula 01/15/17 16:00 96.9 95 18 192/85 96 I/O 01/15/17 01/15/17 01/15/17 01/16/17 01/16/17 01/16/17 07:00 15:00 23:00 07:00 15:00 23:00 Intake Total 0 ml 2187 ml 1671 ml 1167 ml Output Total 975 ml 460 ml 420 ml Balance -975 ml 2187 ml 1211 ml 747 ml Intake Oral 0 ml 240 ml 0 ml 0 ml IV Total 1947 ml 514 ml 258 ml TPN/PPN 1157 ml 659 ml Lipid 250 ml Gastric Drainage Total 975 ml 400 ml 400 ml Drainage Total 60 ml 20 ml # Voids 1 2 1 4 # Bowel Movements 2 Result Diagram: 01/15/17 0500 01/15/17 0500 Objective Remarks GENERAL: AOX3, NAD. SKIN: Warm and dry. HEAD: Normocephalic. EYES: No scleral icterus. No injection or drainage. NECK: Supple, trachea midline. No JVD or lymphadenopathy. CARDIOVASCULAR: Regular rate and rhythm without murmurs, gallops, or rubs. RESPIRATORY: Breath sounds equal bilaterally. No accessory muscle use. GASTROINTESTINAL: Abdomen distended, hypoactive BS, non-tender to palpation. MUSCULOSKELETAL: No cyanosis, or edema. BACK: Nontender without obvious deformity. No CVA tenderness. Procedures 01/07/2017 OPERATIVE PROCEDURE PERFORMED: 1. Diagnostic laparoscopy 2. Laparoscopic lysis of adhesions. 3. Exploratory laparotomy with decompression of small bowel and lysis of adhesions. A/P Problem List: (1) Small bowel obstruction ICD Code: K56.69 Status: Acute (2) Abdominal pain ICD Code: R10.9 Status: Acute (3) Hypertension ICD Code: I10 Status: Acute (4) Hyperlipidemia ICD Code: E78.5 Status: Acute (5) GERD (gastroesophageal reflux disease) ICD Code: K21.9 Status: Acute Assessment and Plan Mr. King is a pleasant 86 year old male with a history of HTN, HLD, GERD, previous colon resection who was admitted to the hospital on 01/05/2017 due to abdominal pain, distention. He was diagnosed with SBO and patient underwent Ex Lap on 01/07/2017. Acute small bowel obstruction with presenting abdominal pain distention: Increased risk factors from previous abdominal surgery. CT scan showed small bowel obstruction with transition zone. Gen. surgery following. Pt is s/p Laparoscopic lysis of adhesions, followed by exploratory laparotomy and small bowel decompression through enterostomy on 01/07/2017. - Morphine for pain control, Zofran for nausea vomiting - Postop wound management per Dr. Enriquez. NG tube in place. Continue pain control. Continue IV fluids. - blood cx Coag negative staph and Corynebacterium sp. Patient is currently on Ceftazidime. - KUB done. Left distention of small bowel loops and suspect there is some air now seen in portions of the colon. No findings of obstruction or pneumoperitoneum. NG tube with the tip in the gastric antrum. - Gastrografin enema given - shows no colonic obstruction but shows partial SBO. Hypomagnesemia - Mag 1.7 - received IV MgSO4 IV Mild hypernatremia - Na 145 - IV fluids changed to D5 1/4 NS + KCl 20 MEQ 125 ML's an hour - CBC, BMP in the AM. - Nocturnal delirium - He is very cooperative and pleasant now. - Calm and cooperative on exam. - Will use Haloperidol if needed. --Hypotension, resolved now hypertensive - Post op, pt became severely hypotensive and required levophed Gtt. Pt was transferred to the ICU and was under the care of the critical care team: - Received 4 L of crystalloids in the OR, additional 4.5 L boluses post op with improving urine output. - Currently blood pressure normotensive or slightly hypertensive. - Start Vasotec 1.25mg IV Q6 when necessary, clonidine 0.1 mg Q6 when necessary. Amlodipine 5mg Qday. Acute renal failure: now improving. nephrology following. Suspected ATN from hypotension. Creatinine peaked to 5.90, improved to 1.06 on 01/11/2017. - Mild hypokalemia - KCL replacement ordered by surgery team. K+ improved to 3.5 -->4.3 - Restless leg syndrome - Insomnia - Nocturnal agitation - Per family member, home dose Ropinirole was increased to 3mg . We will continue this dose at night. - Seroquel one dose now and at night as well. --Prior tobacco use -Nasal cannula oxygen -DuoNeb every 6 hours and when necessary -Aggressive pulmonary toilet, incentive spirometry, Acapella -Ativan if needed for alcohol withdrawal and agitation. Supplement thiamine. Full code. Ambulation. Lovenox 30mg Q24 Problem Qualifiers (1) Abdominal pain: Qualified Code: R10.84 - Generalized abdominal pain (2) Hypertension: Qualified Code: I15.9 - Secondary hypertension (3) Hyperlipidemia: Qualified Code: E78.5 - Hyperlipidemia, unspecified hyperlipidemia type Alin Darby DO Jan 16, 2017 12:16 pm
[2017-01-16 16:00] VITALS: BP 130/88; PULSE 98; RESP 18; TEMP 97.6; O2SAT 96
[2017-01-16 20:00] VITALS: BP 133/78; PULSE 88; RESP 20; TEMP 98.2; O2SAT 95
[2017-01-16] MEDS: RESP: ALBUTEROL 2.5 MG/IPRATROPIUM 0.5 MG NEB (PRN) NEB (20:18)
[2017-01-16] MEDS: QUEtiapine FUMARATE 25 MG TAB PO SCH (20:54)
[2017-01-16] MEDS: PANTOPRAZOLE SODIUM 40 MG VIAL IV PUSH SCH (20:55)
[2017-01-16] MEDS: FAT EMULSION 20% INJ 250 ML (Daily over 8 hours) IV-CENTRAL SCH (20:56)
[2017-01-16] MEDS: CLINIMIX E 4.25/25 2000 mL- >42 mls/hr IV-CENTRAL SCH ×3 (20:56)
--- NOTE | 2017-01-16 23:52 | HHI.PR ---
Subjective Subjective Notes no new c/o shane some clears, +flatus, still bloated Objective Vitals/I&O Vital Signs Date Time Temp Pulse Resp B/P Pulse Ox O2 Delivery O2 Flow Rate FiO2 01/16/17 20:00 98.2 88 20 133/78 95 01/15/17 21:05 Room Air 01/15/17 10:32 21 01/15/17 03:44 3.00 Radiology Last Impressions Renal Ultrasound 01/08/17 0000 Signed Impressions: Service Date/Time: Sunday, January 08, 2017 07:43 - CONCLUSION: No acute findings. No hydronephrosis. Trace free fluid near left kidney. Eric Patel MD Chest X-Ray 01/08/17 0000 Signed Impressions: Service Date/Time: Sunday, January 08, 2017 06:33 - CONCLUSION: 1. NG enters stomach. A central line in superior vena cava. Mild basilar airspace disease. Eric Patel MD Abdomen X-Ray 01/06/17 0600 Signed Impressions: Service Date/Time: December 06:05 - CONCLUSION: Dilated air-filled small bowel with paucity of gas in the colon. Findings are again suspicious for small bowel obstruction. Jung Art MD Abdomen/Pelvis CT 01/05/17 1747 Signed Impressions: Service Date/Time: Thursday, January 05, 2017 18:56 - CONCLUSION: 1. Wall bowel obstruction is noted with transition point in the right lower quadrant. Jadyen Youssef MD Abdomen: Non-tender Extremities: Perfused, SCD's on A/P Problem List: (1) Small bowel obstruction (2) Hypertension (3) Acute kidney injury (4) S/P exploratory laparotomy Assessment and Plan 86yo male s/p exlap, BENJAMIN, stable. wound with erythema, opened at BS for infection continue supportive care for PO ileus Problem Qualifiers (1) Hypertension: Qualified Code: I15.9 - Secondary hypertension Tiago Chun MD Jan 16, 2017 23:52
[2017-01-17] VITALS: BP 166/80; PULSE 96; RESP 20; TEMP 97.8; O2SAT 93
[2017-01-17] MEDS: ERYTHROMYCIN INJ 250 MG in SODIUM CHLORIDE 0.9% INJ 100 ML IV SCH ×4 (00:04→16:13)
[2017-01-17] MEDS: METOCLOPRAMIDE HCL 10 MG/2 ML VIAL IV PUSH SCH ×3 (05:07→21:12)
[2017-01-17] MEDS: ARTIFICIAL TEARS OPTH OINT 3.5 APPLIC/3.5 GM TUBO EACH EYE SCH ×3 (05:08→21:13)
[2017-01-17] MEDS: INSULIN ASPART SUPPLEMENTAL SCALE SQ SCH ×4 (05:18→21:00)
[2017-01-17 05:50] LABS: AUTOMATED NEUTROPHIL # 10.1 TH/MM3 (1.8-7.7); BASOPHIL # 0.1 TH/MM3 (0-0.2); BASOPHIL % 0.5 % (0.0-2.0); EOSINOPHIL # 0.2 TH/MM3 (0-0.4); HEMATOCRIT 34.1 % (39.0-51.0); HEMO FLAGS DIFF FINAL; LYMPH % 8.1 % (9.0-44.0); MEAN CELL VOLUME 92.2 FL (80.0-100.0); MEAN CORPUSCULAR HEMOGLOBIN 30.6 PG (27.0-34.0); MEAN CORPUSCULAR HGB CONC 33.2 % (32.0-36.0); MONO % 5.2 % (0.0-8.0); NEUT % 84.2 % (16.0-70.0); PLATELET COUNT 225 TH/MM3 (150-450); RED BLOOD COUNT 3.69 MIL/MM3 (4.50-5.90)
[2017-01-17] MEDS: ENOXAPARIN SODIUM 30 MG/0.3 ML SYRINGE SQ SCH (06:35)
[2017-01-17 06:47] LABS: BICARBONATE 28.5 MEQ/L (21.0-32.0); MAGNESIUM 1.9 MG/DL (1.5-2.5); POTASSIUM 3.8 MEQ/L (3.5-5.1)
[2017-01-17 08:00] VITALS: BP 138/79; PULSE 80; RESP 20; TEMP 96.7; O2SAT 95
[2017-01-17] MEDS: THIAMINE INJ 100 MG in SODIUM CHLORIDE 0.9% INJ 100 ML IV SCH (08:15)
[2017-01-17] MEDS: LOSARTAN 50 MG TAB PO SCH (08:16)
[2017-01-17] MEDS: TRIAMTERENE/HCTZ 37.5 MG/25 MG CAP PO SCH (08:16)
[2017-01-17] MEDS: SODIUM CHLORIDE 0.9% FLUSH 10 ML FLUSH IV FLUSH SCH (08:18)
[2017-01-17] MEDS: CITALOPRAM HYDROBROMIDE 20 MG TAB PO SCH (08:18)
[2017-01-17] MEDS: SODIUM CHLORIDE 0.9% FLUSH 5 ML FLUSH FLUSH SCH ×2 (08:20→21:14)
[2017-01-17] MEDS: PRAVASTATIN SOD 40 MG TAB PO SCH (08:24)
--- NOTE | 2017-01-17 09:03 | HHI.PR ---
Subjective Subjective Notes Resting in bed Tiki at bedside Reports he is now passing gas Objective Vitals/I&O Vital Signs Date Time Temp Pulse Resp B/P Pulse Ox O2 Delivery O2 Flow Rate FiO2 01/17/17 00:00 97.8 96 20 166/80 93 01/16/17 20:55 Room Air 01/15/17 10:32 21 01/15/17 03:44 3.00 Labs Laboratory Tests Test 01/17/17 05:20 White Blood Count 12.0 Red Blood Count 3.69 Hemoglobin 11.3 Hematocrit 34.1 Mean Corpuscular Volume 92.2 Mean Corpuscular Hemoglobin 30.6 Mean Corpuscular Hemoglobin 33.2 Concent Red Cell Distribution Width 12.0 Platelet Count 225 Mean Platelet Volume 7.7 Neutrophils (%) (Auto) 84.2 Lymphocytes (%) (Auto) 8.1 Monocytes (%) (Auto) 5.2 Eosinophils (%) (Auto) 2.0 Basophils (%) (Auto) 0.5 Neutrophils # (Auto) 10.1 Lymphocytes # (Auto) 1.0 Monocytes # (Auto) 0.6 Eosinophils # (Auto) 0.2 Basophils # (Auto) 0.1 CBC Comment DIFF FINAL Differential Comment Sodium Level 143 Potassium Level 3.8 Chloride Level 107 Carbon Dioxide Level 28.5 Anion Gap 8 Blood Urea Nitrogen 14 Creatinine 0.92 Estimat Glomerular Filtration 78 Rate Random Glucose 148 Calcium Level 9.3 Magnesium Level 1.9 Radiology Last Impressions Renal Ultrasound 01/08/17 0000 Signed Impressions: Service Date/Time: Sunday, January 08, 2017 07:43 - CONCLUSION: No acute findings. No hydronephrosis. Trace free fluid near left kidney. Eric Patel MD Chest X-Ray 01/08/17 0000 Signed Impressions: Service Date/Time: Sunday, January 08, 2017 06:33 - CONCLUSION: 1. NG enters stomach. A central line in superior vena cava. Mild basilar airspace disease. Eric Patel MD Abdomen X-Ray 01/06/17 0600 Signed Impressions: Service Date/Time: December 06:05 - CONCLUSION: Dilated air-filled small bowel with paucity of gas in the colon. Findings are again suspicious for small bowel obstruction. Jung Art MD Abdomen/Pelvis CT 01/05/17 2894 Signed Impressions: Service Date/Time: Thursday, January 05, 2017 18:56 - CONCLUSION: 1. Wall bowel obstruction is noted with transition point in the right lower quadrant. Jayden Youssef MD Cardiovascular: Regular Lungs: Clear Abdomen: Other (abdomen distended; redness at incision katherin; inferior portion of incision open with wet to dry dressing--- dressing removed; wound clean without drainage; JANE x1 with SS drainage ) Extremities: No edema, Other A/P Problem List: (1) Small bowel obstruction (2) Hypertension (3) Acute kidney injury (4) S/P exploratory laparotomy Assessment and Plan 86 year old male with SBO; POD10 ex lap; BENJAMIN -Continue NGT to LIWS -Sips and ice chips okay along with swabs -Continue TPN -Continue antibiotics -Dressing changes ordered daily and PRN -PT eval and treat -OOB and mobilize--chair TID -Discussed with EVA Carbajal -Discussed with Tiki (at bedside) Attending Note - Dr. Enriquez Abdomen is softer than on 01/14; will recheck and decide whether to re-explore in AM. The exam, history, and the medical decision-making described in the above note were completed with the assistance of the mid-level provider. I reviewed and agree with the findings presented. I attest that I had a [id number] encounter with the patient on the same day, and personally performed and documented my assessment and findings in the medical record. Problem Qualifiers (1) Hypertension: Qualified Code: I15.9 - Secondary hypertension Neeru Adam Jan 17, 2017 09:03 Jaret Enriquez MD Jan 18, 2017 10:18
--- NOTE | 2017-01-17 09:45 | HHI.PR ---
Subjective Remarks Follow up for SBO. Patient is doing well. Sitting in a chair at the end of the hallway. Slept well from 11pm to about 9AM. No fever, chills. No large BM but passing gas. Objective Vitals Vital Signs Date Time Temp Pulse Resp B/P Pulse Ox O2 Delivery O2 Flow Rate FiO2 01/17/17 08:00 96.7 80 20 138/79 95 01/17/17 00:00 97.8 96 20 166/80 93 01/16/17 20:55 Room Air 01/16/17 20:00 98.2 88 20 133/78 95 01/16/17 16:00 97.6 98 18 130/88 96 01/16/17 12:00 98.0 88 17 148/77 96 I/O 01/16/17 01/16/17 01/16/17 01/17/17 01/17/17 01/17/17 07:00 15:00 23:00 07:00 15:00 23:00 Intake Total 1167 ml 1283 ml 653 ml 1137 ml Output Total 420 ml 500 ml 495 ml 1010 ml Balance 747 ml 783 ml 158 ml 127 ml Intake Oral 0 ml 0 ml 0 ml 0 ml IV Total 258 ml 455 ml 175 ml 228 ml TPN/PPN 659 ml 828 ml 478 ml 659 ml Lipid 250 ml 250 ml Output Urine Total 400 ml 500 ml Gastric Drainage Total 400 ml 450 ml 75 ml 500 ml Drainage Total 20 ml 50 ml 20 ml 10 ml # Voids 4 4 # Bowel Movements 1 0 0 Result Diagram: 01/17/17 0520 01/17/17 0520 Imaging Last Impressions Chest X-Ray 01/14/17 0000 Signed Impressions: Service Date/Time: Saturday, January 14, 2017 13:15 - CONCLUSION: 1. Right- sided PICC line has its tip in good position at the junction of the superior vena cava and right atrium. 2. Minimal right basilar streakiness consistent with probable atelectasis. 3. Degenerative changes throughout the thoracic spine. Sunny Batista MD Abdomen X-Ray 01/14/17 0000 Signed Impressions: Service Date/Time: Saturday, January 14, 2017 10:48 - CONCLUSION: 1. Improving bowel gas pattern without obstruction. Previous pattern was probably a hypodynamic ileus. 2. No pneumoperitoneum. 3. Postsurgical changes as above Chepe Bai MD Enema w/Water Soluble 01/13/17 0000 Signed Impressions: Service Date/Time: December 14:21 - CONCLUSION: 1. No evidence of colonic obstruction. 2. Uncomplicated colonic diverticulosis. 3. Multiple air-filled loops of small bowel suggesting partial small bowel obstruction or ileus. Clinical correlation is recommended. 4. Degenerative changes and mild scoliosis of the lumbar spine. Sunny Batista MD Renal Ultrasound 01/08/17 0000 Signed Impressions: Service Date/Time: Sunday, January 08, 2017 07:43 - CONCLUSION: No acute findings. No hydronephrosis. Trace free fluid near left kidney. Eric Patel MD Abdomen/Pelvis CT 01/05/17 1747 Signed Impressions: Service Date/Time: Thursday, January 05, 2017 18:56 - CONCLUSION: 1. Wall bowel obstruction is noted with transition point in the right lower quadrant. Jayden Youssef MD Objective Remarks GENERAL: AOX3, NAD. SKIN: Warm and dry. HEAD: Normocephalic. EYES: No scleral icterus. No injection or drainage. NECK: Supple, trachea midline. No JVD or lymphadenopathy. CARDIOVASCULAR: Regular rate and rhythm without murmurs, gallops, or rubs. RESPIRATORY: Breath sounds equal bilaterally. No accessory muscle use. GASTROINTESTINAL: Abdomen distended, hypoactive BS, non-tender to palpation. MUSCULOSKELETAL: No cyanosis, or edema. BACK: Nontender without obvious deformity. No CVA tenderness. Procedures 01/07/2017 OPERATIVE PROCEDURE PERFORMED: 1. Diagnostic laparoscopy 2. Laparoscopic lysis of adhesions. 3. Exploratory laparotomy with decompression of small bowel and lysis of adhesions. A/P Problem List: (1) Small bowel obstruction ICD Code: K56.69 Status: Acute (2) Abdominal pain ICD Code: R10.9 Status: Acute (3) Hypertension ICD Code: I10 Status: Acute (4) Hyperlipidemia ICD Code: E78.5 Status: Acute (5) GERD (gastroesophageal reflux disease) ICD Code: K21.9 Status: Acute Assessment and Plan Mr. King is a pleasant 86 year old male with a history of HTN, HLD, GERD, previous colon resection who was admitted to the hospital on 01/05/2017 due to abdominal pain, distention. He was diagnosed with SBO and patient underwent Ex Lap on 01/07/2017. Acute small bowel obstruction with presenting abdominal pain distention: Increased risk factors from previous abdominal surgery. CT scan showed small bowel obstruction with transition zone. Gen. surgery following. Pt is s/p Laparoscopic lysis of adhesions, followed by exploratory laparotomy and small bowel decompression through enterostomy on 01/07/2017. - Morphine for pain control, Zofran for nausea vomiting - Postop wound management per Dr. Enriquez. NG tube in place. Continue pain control. Continue IV fluids. - blood cx Coag negative staph and Corynebacterium sp. Patient is currently on Ceftazidime. - KUB done. Left distention of small bowel loops and suspect there is some air now seen in portions of the colon. No findings of obstruction or pneumoperitoneum. NG tube with the tip in the gastric antrum. - Gastrografin enema given - shows no colonic obstruction but shows partial SBO. Hypomagnesemia - Mag 1.7 - received IV MgSO4 IV Mild hypernatremia - Na 145 - IV fluids changed to D5 1/4 NS + KCl 20 MEQ 125 ML's an hour - CBC, BMP reviewed. Electrolytes are within normal range. - Nocturnal delirium - He is very cooperative and pleasant now. - Calm and cooperative on exam. - Will use Haloperidol if needed. - Hypertension - Continue Amlodipine 10mg Qday, Losartan 100mg Qday, Triamterene-HCTZ. Acute renal failure: now improving. nephrology following. Suspected ATN from hypotension. Creatinine peaked to 5.90, improved to 0.92 on 01/17/2017. - Mild hypokalemia - KCL replacement ordered by surgery team. K+ improved to 3.5 -->3.8. - Restless leg syndrome - Insomnia - Nocturnal agitation - Per family member, home dose Ropinirole was increased to 3mg . We will continue this dose at night. - D/C Seroquel. - Once bowel function returns to normal, consider Iron supplementation. --Prior tobacco use -Nasal cannula oxygen -DuoNeb every 6 hours and when necessary -Aggressive pulmonary toilet, incentive spirometry, Acapella -Ativan if needed for alcohol withdrawal and agitation. Supplement thiamine. Full code. Ambulation. Lovenox 30mg Q24 Problem Qualifiers (1) Abdominal pain: Qualified Code: R10.84 - Generalized abdominal pain (2) Hypertension: Qualified Code: I15.9 - Secondary hypertension (3) Hyperlipidemia: Qualified Code: E78.5 - Hyperlipidemia, unspecified hyperlipidemia type Alin Darby DO Jan 17, 2017 9:45 am
[2017-01-17] MEDS: cefTAZidime INJ 2,000 MG in SODIUM CHLORIDE 0.9% INJ 100 ML IV SCH ×2 (09:46→21:13)
[2017-01-17 12:00] VITALS: BP 137/78; PULSE 94; RESP 18; TEMP 96.4; O2SAT 95
[2017-01-17] MEDS ORDERED: LACTATED RINGER'S 1000 ML INJ 1,000 ML IV SCH (15:45)
[2017-01-17 16:00] VITALS: BP 128/74; PULSE 86; RESP 18; TEMP 98.2; O2SAT 95
[2017-01-17 20:00] VITALS: BP 132/79; PULSE 89; RESP 20; TEMP 97.6; O2SAT 97
[2017-01-17] MEDS: CLINIMIX E 4.25/25 2000 mL- >42 mls/hr IV-CENTRAL SCH ×3 (20:50)
[2017-01-17] MEDS: FAT EMULSION 20% INJ 250 ML (Daily over 8 hours) IV-CENTRAL SCH (20:50)
[2017-01-17] MEDS: PANTOPRAZOLE SODIUM 40 MG VIAL IV PUSH SCH (21:05)
[2017-01-18] VITALS: BP 140/82; PULSE 92; RESP 20; TEMP 98.2; O2SAT 95
[2017-01-18] MEDS: ERYTHROMYCIN INJ 250 MG in SODIUM CHLORIDE 0.9% INJ 100 ML IV SCH ×4 (02:09→15:56)
[2017-01-18] MEDS: ARTIFICIAL TEARS OPTH OINT 3.5 APPLIC/3.5 GM TUBO EACH EYE SCH ×3 (06:00→21:39)
[2017-01-18] MEDS: ENOXAPARIN SODIUM 30 MG/0.3 ML SYRINGE SQ SCH (06:11)
[2017-01-18] MEDS: METOCLOPRAMIDE HCL 10 MG/2 ML VIAL IV PUSH SCH ×3 (06:12→22:00)
[2017-01-18] MEDS: INSULIN ASPART SUPPLEMENTAL SCALE SQ SCH ×4 (06:12→21:00)
[2017-01-18 08:00] VITALS: BP 127/72; PULSE 82; RESP 18; TEMP 98.5; O2SAT 95
[2017-01-18] MEDS: LOSARTAN 50 MG TAB PO SCH (08:56)
[2017-01-18] MEDS: CITALOPRAM HYDROBROMIDE 20 MG TAB PO SCH (08:57)
[2017-01-18] MEDS: SODIUM CHLORIDE 0.9% FLUSH 10 ML FLUSH IV FLUSH SCH (08:57)
[2017-01-18] MEDS: SODIUM CHLORIDE 0.9% FLUSH 5 ML FLUSH FLUSH SCH ×2 (08:57→21:00)
[2017-01-18] MEDS: cefTAZidime INJ 2,000 MG in SODIUM CHLORIDE 0.9% INJ 100 ML IV SCH ×2 (08:57→23:08)
[2017-01-18] MEDS: TRIAMTERENE/HCTZ 37.5 MG/25 MG CAP PO SCH (08:57)
[2017-01-18] MEDS: THIAMINE INJ 100 MG in SODIUM CHLORIDE 0.9% INJ 100 ML IV SCH (08:58)
[2017-01-18] MEDS: PRAVASTATIN SOD 40 MG TAB PO SCH (08:58)
[2017-01-18 12:00] VITALS: BP 127/70; PULSE 84; RESP 18; TEMP 98.6; O2SAT 95
[2017-01-18 16:00] VITALS: BP 123/66; PULSE 82; RESP 18; TEMP 97.3; O2SAT 96
[2017-01-18 20:00] VITALS: BP 118/70; PULSE 78; RESP 20; TEMP 97.8; O2SAT 95
[2017-01-18] MEDS: PANTOPRAZOLE SODIUM 40 MG VIAL IV PUSH SCH (20:00)
[2017-01-18] MEDS: FAT EMULSION 20% INJ 250 ML (Daily over 8 hours) IV-CENTRAL SCH (21:07)
[2017-01-18] MEDS: CLINIMIX E 4.25/25 2000 mL- >42 mls/hr IV-CENTRAL SCH ×3 (21:07)
--- NOTE | 2017-01-18 23:05 | HHI.PR ---
Subjective Remarks Follow up for SBO. Patient is passing more gas but no large BM. No fever, chills. NG tube discontinued. Objective Vitals Vital Signs Date Time Temp Pulse Resp B/P Pulse Ox O2 Delivery O2 Flow Rate FiO2 01/18/17 16:00 97.3 82 18 123/66 96 01/18/17 12:00 98.6 84 18 127/70 95 01/18/17 08:00 98.5 82 18 127/72 95 01/18/17 00:00 98.2 92 20 140/82 95 I/O 01/17/17 01/17/17 01/17/17 01/18/17 01/18/17 01/18/17 07:00 15:00 23:00 07:00 15:00 23:00 Intake Total 1137 ml 1044 ml 0 ml 0 ml 1075 ml Output Total 1010 ml 945 ml 450 ml 450 ml 300 ml 60 ml Balance 127 ml 99 ml -450 ml -450 ml 775 ml -60 ml Intake Oral 0 ml 0 ml 0 ml 0 ml 0 ml IV Total 228 ml 407 ml 453 ml TPN/PPN 659 ml 637 ml 622 ml Lipid 250 ml Output Urine Total 500 ml 600 ml 450 ml 450 ml 300 ml Gastric Drainage Total 500 ml 325 ml Drainage Total 10 ml 20 ml 60 ml # Bowel Movements 0 0 0 1 0 Result Diagram: 01/17/17 0520 01/17/17 0520 Imaging Last Impressions Chest X-Ray 01/14/17 0000 Signed Impressions: Service Date/Time: Saturday, January 14, 2017 13:15 - CONCLUSION: 1. Right- sided PICC line has its tip in good position at the junction of the superior vena cava and right atrium. 2. Minimal right basilar streakiness consistent with probable atelectasis. 3. Degenerative changes throughout the thoracic spine. Sunny Batista MD Abdomen X-Ray 01/14/17 0000 Signed Impressions: Service Date/Time: Saturday, January 14, 2017 10:48 - CONCLUSION: 1. Improving bowel gas pattern without obstruction. Previous pattern was probably a hypodynamic ileus. 2. No pneumoperitoneum. 3. Postsurgical changes as above Chepe Bai MD Enema w/Water Soluble 01/13/17 0000 Signed Impressions: Service Date/Time: December 14:21 - CONCLUSION: 1. No evidence of colonic obstruction. 2. Uncomplicated colonic diverticulosis. 3. Multiple air-filled loops of small bowel suggesting partial small bowel obstruction or ileus. Clinical correlation is recommended. 4. Degenerative changes and mild scoliosis of the lumbar spine. Sunny Batista MD Renal Ultrasound 01/08/17 0000 Signed Impressions: Service Date/Time: Sunday, January 08, 2017 07:43 - CONCLUSION: No acute findings. No hydronephrosis. Trace free fluid near left kidney. Eric Patel MD Abdomen/Pelvis CT 01/05/17 1747 Signed Impressions: Service Date/Time: Thursday, January 05, 2017 18:56 - CONCLUSION: 1. Wall bowel obstruction is noted with transition point in the right lower quadrant. Jayden Youssef MD Objective Remarks GENERAL: AOX3, NAD. SKIN: Warm and dry. HEAD: Normocephalic. EYES: No scleral icterus. No injection or drainage. NECK: Supple, trachea midline. No JVD or lymphadenopathy. CARDIOVASCULAR: Regular rate and rhythm without murmurs, gallops, or rubs. RESPIRATORY: Breath sounds equal bilaterally. No accessory muscle use. GASTROINTESTINAL: Abdomen distended, hypoactive BS, non-tender to palpation. MUSCULOSKELETAL: No cyanosis, or edema. BACK: Nontender without obvious deformity. No CVA tenderness. Procedures 01/07/2017 OPERATIVE PROCEDURE PERFORMED: 1. Diagnostic laparoscopy 2. Laparoscopic lysis of adhesions. 3. Exploratory laparotomy with decompression of small bowel and lysis of adhesions. A/P Problem List: (1) Small bowel obstruction ICD Code: K56.69 Status: Acute (2) Abdominal pain ICD Code: R10.9 Status: Acute (3) Hypertension ICD Code: I10 Status: Acute (4) Hyperlipidemia ICD Code: E78.5 Status: Acute (5) GERD (gastroesophageal reflux disease) ICD Code: K21.9 Status: Acute Assessment and Plan Mr. King is a pleasant 86 year old male with a history of HTN, HLD, GERD, previous colon resection who was admitted to the hospital on 01/05/2017 due to abdominal pain, distention. He was diagnosed with SBO and patient underwent Ex Lap on 01/07/2017. Acute small bowel obstruction with presenting abdominal pain distention: Increased risk factors from previous abdominal surgery. CT scan showed small bowel obstruction with transition zone. Gen. surgery following. Pt is s/p Laparoscopic lysis of adhesions, followed by exploratory laparotomy and small bowel decompression through enterostomy on 01/07/2017. - Morphine for pain control, Zofran for nausea vomiting - Postop wound management per Dr. Enriquez. NG tube in place. Continue pain control. Continue TPN. - blood cx Coag negative staph and Corynebacterium sp. Patient is currently on Ceftazidime. - KUB done. Left distention of small bowel loops and suspect there is some air now seen in portions of the colon. No findings of obstruction or pneumoperitoneum. NG tube with the tip in the gastric antrum. - Gastrografin enema given - shows no colonic obstruction but shows partial SBO. Hypomagnesemia - Mag 1.7 - received IV MgSO4 IV Mild hypernatremia - Na 145 - Electrolytes are within normal range. - Nocturnal delirium - He is very cooperative and pleasant now. - Calm and cooperative on exam. - Will use Haloperidol if needed. - Hypertension - Continue Amlodipine 10mg Qday, Losartan 100mg Qday, Triamterene-HCTZ. Acute renal failure: now improving. nephrology following. Suspected ATN from hypotension. Creatinine peaked to 5.90, improved to 0.92 on 01/17/2017. - Mild hypokalemia - KCL replacement ordered by surgery team. K+ improved to 3.5 -->3.8. - Restless leg syndrome - Insomnia - Nocturnal agitation - Per family member, home dose Ropinirole was increased to 3mg . We will continue this dose at night. - D/C Seroquel. - Once bowel function returns to normal, consider Iron supplementation. --Prior tobacco use -Nasal cannula oxygen -DuoNeb every 6 hours and when necessary -Aggressive pulmonary toilet, incentive spirometry, Acapella -Ativan if needed for alcohol withdrawal and agitation. Supplement thiamine. Full code. Ambulation. Lovenox 30mg Q24 Problem Qualifiers (1) Abdominal pain: Qualified Code: R10.84 - Generalized abdominal pain (2) Hypertension: Qualified Code: I15.9 - Secondary hypertension (3) Hyperlipidemia: Qualified Code: E78.5 - Hyperlipidemia, unspecified hyperlipidemia type Alin Darby DO Jan 18, 2017 23:05
[2017-01-19] MEDS: ERYTHROMYCIN INJ 250 MG in SODIUM CHLORIDE 0.9% INJ 100 ML IV SCH ×4 (00:42→18:04)
[2017-01-19 04:00] VITALS: BP 131/78; PULSE 81; RESP 20; TEMP 98.1; O2SAT 96
[2017-01-19] MEDS: METOCLOPRAMIDE HCL 10 MG/2 ML VIAL IV PUSH SCH ×2 (05:39→14:00)
[2017-01-19] MEDS: INSULIN ASPART SUPPLEMENTAL SCALE SQ SCH ×4 (05:39→21:00)
[2017-01-19] MEDS: ARTIFICIAL TEARS OPTH OINT 3.5 APPLIC/3.5 GM TUBO EACH EYE SCH ×3 (05:39→22:00)
[2017-01-19] MEDS: ENOXAPARIN SODIUM 30 MG/0.3 ML SYRINGE SQ SCH (05:48)
[2017-01-19 08:00] VITALS: BP 136/66; PULSE 82; RESP 18; TEMP 96.8; O2SAT 95
[2017-01-19] MEDS: LOSARTAN 50 MG TAB PO SCH (08:41)
[2017-01-19] MEDS: TRIAMTERENE/HCTZ 37.5 MG/25 MG CAP PO SCH (08:42)
[2017-01-19] MEDS: PRAVASTATIN SOD 40 MG TAB PO SCH (08:42)
[2017-01-19] MEDS: CITALOPRAM HYDROBROMIDE 20 MG TAB PO SCH (08:42)
[2017-01-19] MEDS: SODIUM CHLORIDE 0.9% FLUSH 5 ML FLUSH FLUSH SCH ×2 (08:43→21:00)
[2017-01-19] MEDS: SODIUM CHLORIDE 0.9% FLUSH 10 ML FLUSH IV FLUSH SCH (08:46)
[2017-01-19] MEDS: THIAMINE INJ 100 MG in SODIUM CHLORIDE 0.9% INJ 100 ML IV SCH (08:46)
[2017-01-19 08:57] LABS: AUTOMATED NEUTROPHIL # 6.9 TH/MM3 (1.8-7.7); BASOPHIL # 0.1 TH/MM3 (0-0.2); BASOPHIL % 0.6 % (0.0-2.0); EOSINOPHIL # 0.3 TH/MM3 (0-0.4); HEMATOCRIT 34.8 % (39.0-51.0); HEMO FLAGS DIFF FINAL; LYMPH % 10.6 % (9.0-44.0); LYMPHOCYTE # 0.9 TH/MM3 (1.0-4.8); MEAN CELL VOLUME 91.5 FL (80.0-100.0); MEAN CORPUSCULAR HEMOGLOBIN 30.5 PG (27.0-34.0); MEAN CORPUSCULAR HGB CONC 33.3 % (32.0-36.0); MONO % 7.4 % (0.0-8.0); NEUT % 78.4 % (16.0-70.0); PLATELET COUNT 216 TH/MM3 (150-450); RED CELL DISTRIBUTION WIDTH 12.1 % (11.6-17.2); WHITE BLOOD COUNT 8.8 TH/MM3 (4.0-11.0)
[2017-01-19 09:31] LABS: MAGNESIUM 1.9 MG/DL (1.5-2.5)
[2017-01-19] MEDS: cefTAZidime INJ 2,000 MG in SODIUM CHLORIDE 0.9% INJ 100 ML IV SCH ×2 (09:55→22:41)
--- NOTE | 2017-01-19 10:16 | HHI.PR ---
Subjective Remarks Follow-up for his by mouth. Patient is currently doing well. No abdominal pain , fever or chills. He has been having small bowel movements. Objective Vitals Vital Signs Date Time Temp Pulse Resp B/P Pulse Ox O2 Delivery O2 Flow Rate FiO2 01/19/17 08:00 96.8 82 18 136/66 95 01/19/17 04:00 98.1 81 20 131/78 96 01/18/17 20:00 97.8 78 20 118/70 95 01/18/17 16:00 97.3 82 18 123/66 96 01/18/17 12:00 98.6 84 18 127/70 95 I/O 01/18/17 01/18/17 01/18/17 01/19/17 01/19/17 01/19/17 07:00 15:00 23:00 07:00 15:00 23:00 Intake Total 0 ml 1075 ml 604 ml 1096 ml Output Total 450 ml 300 ml 70 ml 10 ml Balance -450 ml 775 ml 534 ml 1086 ml Intake Oral 0 ml 0 ml 0 ml 0 ml IV Total 453 ml 200 ml TPN/PPN 622 ml 604 ml 648 ml Lipid 248 ml Output Urine Total 450 ml 300 ml Drainage Total 70 ml 10 ml # Voids 1 4 # Bowel Movements 1 0 Result Diagram: 01/19/1783801/19/17838 Objective Remarks GENERAL: AOX3, NAD. SKIN: Warm and dry. HEAD: Normocephalic. EYES: No scleral icterus. No injection or drainage. NECK: Supple, trachea midline. No JVD or lymphadenopathy. CARDIOVASCULAR: Regular rate and rhythm without murmurs, gallops, or rubs. RESPIRATORY: Breath sounds equal bilaterally. No accessory muscle use. GASTROINTESTINAL: Abdomen distended, hypoactive BS, non-tender to palpation. MUSCULOSKELETAL: No cyanosis, or edema. BACK: Nontender without obvious deformity. No CVA tenderness. Procedures 01/07/2017 OPERATIVE PROCEDURE PERFORMED: 1. Diagnostic laparoscopy 2. Laparoscopic lysis of adhesions. 3. Exploratory laparotomy with decompression of small bowel and lysis of adhesions. A/P Problem List: (1) Small bowel obstruction ICD Code: K56.69 Status: Acute (2) Abdominal pain ICD Code: R10.9 Status: Acute (3) Hypertension ICD Code: I10 Status: Acute (4) Hyperlipidemia ICD Code: E78.5 Status: Acute (5) GERD (gastroesophageal reflux disease) ICD Code: K21.9 Status: Acute Assessment and Plan Mr. King is a pleasant 86 year old male with a history of HTN, HLD, GERD, previous colon resection who was admitted to the hospital on 01/05/2017 due to abdominal pain, distention. He was diagnosed with SBO and patient underwent Ex Lap on 01/07/2017. Acute small bowel obstruction with presenting abdominal pain distention: Increased risk factors from previous abdominal surgery. CT scan showed small bowel obstruction with transition zone. Gen. surgery following. Pt is s/p Laparoscopic lysis of adhesions, followed by exploratory laparotomy and small bowel decompression through enterostomy on 01/07/2017. - Morphine for pain control, Zofran for nausea vomiting - Postop wound management per Dr. Enriquez. NG tube in place. Continue pain control. Continue TPN. - blood cx Coag negative staph and Corynebacterium sp. Patient is currently on Ceftazidime. - KUB done. Left distention of small bowel loops and suspect there is some air now seen in portions of the colon. No findings of obstruction or pneumoperitoneum. NG tube with the tip in the gastric antrum. - Gastrografin enema given - shows no colonic obstruction but shows partial SBO. Hypomagnesemia - Mag 1.7 - received IV MgSO4 IV Mild hypernatremia - Na 145 - Electrolytes are within normal range. - CBC, BMP in the morning - Nocturnal delirium - He is very cooperative and pleasant now. - Calm and cooperative on exam. - Will use Haloperidol if needed. - Hypertension - Continue Amlodipine 10mg Qday, Losartan 100mg Qday, Triamterene-HCTZ. Acute renal failure: now improving. nephrology following. Suspected ATN from hypotension. Creatinine peaked to 5.90, improved to 0.92 on 01/17/2017. - Mild hypokalemia - KCL replacement ordered by surgery team. K+ improved to 3.5 -->3.8. - Restless leg syndrome - Insomnia - Nocturnal agitation - Per family member, home dose Ropinirole was increased to 3mg . We will continue this dose at night. - D/C Seroquel. - Once bowel function returns to normal, consider Iron supplementation. --Prior tobacco use -Nasal cannula oxygen -DuoNeb every 6 hours and when necessary -Aggressive pulmonary toilet, incentive spirometry, Acapella -Ativan if needed for alcohol withdrawal and agitation. Supplement thiamine. Full code. Ambulation. Lovenox 30mg Q24 Problem Qualifiers (1) Abdominal pain: Qualified Code: R10.84 - Generalized abdominal pain (2) Hypertension: Qualified Code: I15.9 - Secondary hypertension (3) Hyperlipidemia: Qualified Code: E78.5 - Hyperlipidemia, unspecified hyperlipidemia type Alin Darby DO Jan 19, 2017 10:16 am
[2017-01-19 12:00] VITALS: BP 140/78; PULSE 80; RESP 16; TEMP 97.6; O2SAT 95
[2017-01-19] MEDS ORDERED: SODIUM CHLORIDE 0.65% NASAL SPRAY 45 ML BTL EACH NARE PRN (15:45)
--- NOTE | 2017-01-19 15:54 | HHI.PR ---
Subjective Subjective Notes Patient examined about 0715 Sitting up in chair Did not rest well last night Objective Vitals/I&O Vital Signs Date Time Temp Pulse Resp B/P Pulse Ox O2 Delivery O2 Flow Rate FiO2 01/19/17 12:00 97.6 80 16 140/78 95 01/16/17 20:55 Room Air 01/15/17 10:32 21 Labs Laboratory Tests Test 01/19/17 08:39 White Blood Count 8.8 Red Blood Count 3.80 Hemoglobin 11.6 Hematocrit 34.8 Mean Corpuscular Volume 91.5 Mean Corpuscular Hemoglobin 30.5 Mean Corpuscular Hemoglobin 33.3 Concent Red Cell Distribution Width 12.1 Platelet Count 216 Mean Platelet Volume 7.9 Neutrophils (%) (Auto) 78.4 Lymphocytes (%) (Auto) 10.6 Monocytes (%) (Auto) 7.4 Eosinophils (%) (Auto) 3.0 Basophils (%) (Auto) 0.6 Neutrophils # (Auto) 6.9 Lymphocytes # (Auto) 0.9 Monocytes # (Auto) 0.7 Eosinophils # (Auto) 0.3 Basophils # (Auto) 0.1 CBC Comment DIFF FINAL Differential Comment Sodium Level 137 Potassium Level 4.0 Chloride Level 101 Carbon Dioxide Level 31.0 Anion Gap 5 Blood Urea Nitrogen 19 Creatinine 0.83 Estimat Glomerular Filtration 88 Rate Random Glucose 129 Calcium Level 9.2 Phosphorus Level 3.1 Magnesium Level 1.9 Albumin 2.7 Prealbumin 18 Radiology Last Impressions Renal Ultrasound 01/08/17 0000 Signed Impressions: Service Date/Time: Sunday, January 08, 2017 07:43 - CONCLUSION: No acute findings. No hydronephrosis. Trace free fluid near left kidney. Eric Patel MD Chest X-Ray 01/08/17 0000 Signed Impressions: Service Date/Time: Sunday, January 08, 2017 06:33 - CONCLUSION: 1. NG enters stomach. A central line in superior vena cava. Mild basilar airspace disease. Eric Patel MD Abdomen X-Ray 01/06/17 0600 Signed Impressions: Service Date/Time: December 06:05 - CONCLUSION: Dilated air-filled small bowel with paucity of gas in the colon. Findings are again suspicious for small bowel obstruction. Jung Art MD Abdomen/Pelvis CT 01/05/17 1747 Signed Impressions: Service Date/Time: Thursday, January 05, 2017 18:56 - CONCLUSION: 1. Wall bowel obstruction is noted with transition point in the right lower quadrant. Jayden Youssef MD Cardiovascular: Regular Lungs: Clear Abdomen: Other (midline incision with open area---clean without drainage; stapled; abdomen distended but much less than on yesterday's exam ; JANE x1 with SS drainage ) Extremities: No edema A/P Problem List: (1) Small bowel obstruction (2) Hypertension (3) Acute kidney injury (4) S/P exploratory laparotomy Assessment and Plan 86 year old male with SBO; POD12 ex lap; BENJAMIN -Continue clear liquids -Continue TPN ---will wean off as we are able to increase PO intake -Continue antibiotics -Dressing changes ordered daily and PRN -PT eval and treat -OOB and mobilize--chair TID -Discussed with RN Zahra Attending Note - Dr. Enriquez Abdomen distended, but tolerating liquids. Will advance diet later today; likely home by 01/21/17 if he continues to progress. The exam, history, and the medical decision-making described in the above note were completed with the assistance of the mid-level provider. I reviewed and agree with the findings presented. I attest that I had a [id number] encounter with the patient on the same day, and personally performed and documented my assessment and findings in the medical record. Problem Qualifiers (1) Hypertension: Qualified Code: I15.9 - Secondary hypertension Neeru Adam Jan 19, 2017 15:54 Jaret Enriquez MD Jan 21, 2017 15:32
[2017-01-19 16:00] VITALS: BP 139/73; PULSE 85; RESP 18; TEMP 96.9; O2SAT 96
[2017-01-19 20:00] VITALS: BP 122/74; PULSE 88; RESP 20; TEMP 97.6; O2SAT 95
[2017-01-19] MEDS ORDERED: MULTIVITAMIN INJ 10 ML, FOLIC ACID INJ 1 MG in AMINO ACID IN D5W W/ELECTROLYT 2,000 ML IV-CENTRAL SCH ×3 (20:00)
[2017-01-19] MEDS: PANTOPRAZOLE SODIUM 40 MG VIAL IV PUSH SCH (22:41)
[2017-01-20] MEDS: ERYTHROMYCIN INJ 250 MG in SODIUM CHLORIDE 0.9% INJ 100 ML IV SCH ×3 (00:35→12:53)
[2017-01-20] MEDS: ARTIFICIAL TEARS OPTH OINT 3.5 APPLIC/3.5 GM TUBO EACH EYE SCH ×3 (05:04→20:55)
[2017-01-20] MEDS: ENOXAPARIN SODIUM 30 MG/0.3 ML SYRINGE SQ SCH (05:04)
[2017-01-20] MEDS: INSULIN ASPART SUPPLEMENTAL SCALE SQ SCH ×4 (05:11→20:55)
[2017-01-20 07:26] LABS: BICARBONATE 31.2 MEQ/L (21.0-32.0); MAGNESIUM 1.9 MG/DL (1.5-2.5)
[2017-01-20 07:29] LABS: BASOPHIL # 0.1 TH/MM3 (0-0.2); BASOPHIL % 0.9 % (0.0-2.0); EOSINOPHIL # 0.3 TH/MM3 (0-0.4); EOSINOPHIL % 4.1 % (0.0-4.0); HEMO FLAGS DIFF FINAL; LYMPH % 14.5 % (9.0-44.0); MEAN CELL VOLUME 91.3 FL (80.0-100.0); MEAN CORPUSCULAR HEMOGLOBIN 30.6 PG (27.0-34.0); MEAN CORPUSCULAR HGB CONC 33.5 % (32.0-36.0); MONO % 9.1 % (0.0-8.0); NEUT % 71.4 % (16.0-70.0); PLATELET COUNT 199 TH/MM3 (150-450); RED BLOOD COUNT 3.51 MIL/MM3 (4.50-5.90); RED CELL DISTRIBUTION WIDTH 12.1 % (11.6-17.2); WHITE BLOOD COUNT 6.9 TH/MM3 (4.0-11.0)
[2017-01-20 08:00] VITALS: BP 126/64; PULSE 82; RESP 18; TEMP 96.1; O2SAT 94
[2017-01-20] MEDS: THIAMINE INJ 100 MG in SODIUM CHLORIDE 0.9% INJ 100 ML IV SCH (08:48)
[2017-01-20] MEDS: SODIUM CHLORIDE 0.9% FLUSH 10 ML FLUSH IV FLUSH SCH (08:48)
[2017-01-20] MEDS: CITALOPRAM HYDROBROMIDE 20 MG TAB PO SCH (08:49)
[2017-01-20] MEDS: LOSARTAN 50 MG TAB PO SCH (08:49)
[2017-01-20] MEDS: TRIAMTERENE/HCTZ 37.5 MG/25 MG CAP PO SCH (08:49)
[2017-01-20] MEDS: PRAVASTATIN SOD 40 MG TAB PO SCH (08:50)
[2017-01-20] MEDS: SODIUM CHLORIDE 0.9% FLUSH 5 ML FLUSH FLUSH SCH ×2 (08:51→20:52)
--- NOTE | 2017-01-20 11:15 | HHI.PR ---
Subjective Remarks Follow-up for his by mouth. Patient is currently doing well. Mr. King is doing well, in the bathroom. Reports no acute concerns. Objective Vitals Vital Signs Date Time Temp Pulse Resp B/P Pulse Ox O2 Delivery O2 Flow Rate FiO2 01/20/17 08:00 96.1 82 18 126/64 94 01/19/17 20:00 97.6 88 20 122/74 95 01/19/17 16:00 96.9 85 18 139/73 96 01/19/17 12:00 97.6 80 16 140/78 95 I/O 01/19/17 01/19/17 01/19/17 01/20/17 01/20/17 01/20/17 07:00 15:00 23:00 07:00 15:00 23:00 Intake Total 1096 ml 943 ml 664 ml 420 ml Output Total 10 ml 30 ml 550 ml 800 ml Balance 1086 ml 913 ml 114 ml -380 ml Intake Oral 0 ml 60 ml 240 ml 220 ml IV Total 200 ml 150 ml 424 ml 200 ml TPN/PPN 648 ml 733 ml Lipid 248 ml Output Urine Total 550 ml 750 ml Drainage Total 10 ml 30 ml 50 ml # Voids 4 3 # Bowel Movements 1 0 0 Result Diagram: 01/20/1715 01/20/1715 Imaging Last Impressions Chest X-Ray 01/14/17 0000 Signed Impressions: Service Date/Time: Saturday, January 14, 2017 13:15 - CONCLUSION: 1. Right- sided PICC line has its tip in good position at the junction of the superior vena cava and right atrium. 2. Minimal right basilar streakiness consistent with probable atelectasis. 3. Degenerative changes throughout the thoracic spine. Sunny Batista MD Abdomen X-Ray 01/14/17 0000 Signed Impressions: Service Date/Time: Saturday, January 14, 2017 10:48 - CONCLUSION: 1. Improving bowel gas pattern without obstruction. Previous pattern was probably a hypodynamic ileus. 2. No pneumoperitoneum. 3. Postsurgical changes as above Chepe Bai MD Enema w/Water Soluble 01/13/17 0000 Signed Impressions: Service Date/Time: December 14:21 - CONCLUSION: 1. No evidence of colonic obstruction. 2. Uncomplicated colonic diverticulosis. 3. Multiple air-filled loops of small bowel suggesting partial small bowel obstruction or ileus. Clinical correlation is recommended. 4. Degenerative changes and mild scoliosis of the lumbar spine. Sunny Batista MD Renal Ultrasound 01/08/17 0000 Signed Impressions: Service Date/Time: Sunday, January 08, 2017 07:43 - CONCLUSION: No acute findings. No hydronephrosis. Trace free fluid near left kidney. Eric Patel MD Abdomen/Pelvis CT 01/05/17 1747 Signed Impressions: Service Date/Time: Thursday, January 05, 2017 18:56 - CONCLUSION: 1. Wall bowel obstruction is noted with transition point in the right lower quadrant. Jayden Youssef MD Objective Remarks GENERAL: AOX3, NAD. SKIN: Warm and dry. HEAD: Normocephalic. EYES: No scleral icterus. No injection or drainage. NECK: Supple, trachea midline. No JVD or lymphadenopathy. CARDIOVASCULAR: Regular rate and rhythm without murmurs, gallops, or rubs. RESPIRATORY: Breath sounds equal bilaterally. No accessory muscle use. GASTROINTESTINAL: Abdomen distended, hypoactive BS, non-tender to palpation. MUSCULOSKELETAL: No cyanosis, or edema. BACK: Nontender without obvious deformity. No CVA tenderness. Procedures 01/07/2017 OPERATIVE PROCEDURE PERFORMED: 1. Diagnostic laparoscopy 2. Laparoscopic lysis of adhesions. 3. Exploratory laparotomy with decompression of small bowel and lysis of adhesions. A/P Problem List: (1) Small bowel obstruction ICD Code: K56.69 Status: Acute (2) Abdominal pain ICD Code: R10.9 Status: Acute (3) Hypertension ICD Code: I10 Status: Acute (4) Hyperlipidemia ICD Code: E78.5 Status: Acute (5) GERD (gastroesophageal reflux disease) ICD Code: K21.9 Status: Acute Assessment and Plan Mr. King is a pleasant 86 year old male with a history of HTN, HLD, GERD, previous colon resection who was admitted to the hospital on 01/05/2017 due to abdominal pain, distention. He was diagnosed with SBO and patient underwent Ex Lap on 01/07/2017. Acute small bowel obstruction with presenting abdominal pain distention: Increased risk factors from previous abdominal surgery. CT scan showed small bowel obstruction with transition zone. Gen. surgery following. Pt is s/p Laparoscopic lysis of adhesions, followed by exploratory laparotomy and small bowel decompression through enterostomy on 01/07/2017. - Morphine for pain control, Zofran for nausea vomiting - Postop wound management per Dr. Enriquez. NG tube in place. Continue pain control. Continue TPN. - blood cx Coag negative staph and Corynebacterium sp. Patient is currently on Ceftazidime. - KUB done. Left distention of small bowel loops and suspect there is some air now seen in portions of the colon. No findings of obstruction or pneumoperitoneum. NG tube with the tip in the gastric antrum. - Gastrografin enema given - shows no colonic obstruction but shows partial SBO. Hypomagnesemia - Mag 1.7 - received IV MgSO4 IV Mild hypernatremia - Na 145 - Electrolytes are within normal range. - CBC, BMP reviewed and largely unremarkable. Electrolytes are within normal range. - Nocturnal delirium - He is very cooperative and pleasant now. - Calm and cooperative on exam. - Will use Haloperidol if needed. - Hypertension - Continue Amlodipine 10mg Qday, Losartan 100mg Qday, Triamterene-HCTZ. Acute renal failure: now improving. nephrology following. Suspected ATN from hypotension. Creatinine peaked to 5.90, improved to 0.92 on 01/17/2017. - Mild hypokalemia - KCL replacement ordered by surgery team. K+ improved to 3.5 -->3.8. - Restless leg syndrome - Insomnia - Nocturnal agitation - Per family member, home dose Ropinirole was increased to 3mg . We will continue this dose at night. - D/C Seroquel. - Once bowel function returns to normal, consider Iron supplementation. --Prior tobacco use -Nasal cannula oxygen -DuoNeb every 6 hours and when necessary -Aggressive pulmonary toilet, incentive spirometry, Acapella -Ativan if needed for alcohol withdrawal and agitation. Supplement thiamine. Full code. Ambulation. Lovenox 30mg Q24 Discharge plan: Possibly 01/21/2017 if okay with General surgery. Problem Qualifiers (1) Abdominal pain: Qualified Code: R10.84 - Generalized abdominal pain (2) Hypertension: Qualified Code: I15.9 - Secondary hypertension (3) Hyperlipidemia: Qualified Code: E78.5 - Hyperlipidemia, unspecified hyperlipidemia type Alin Darby DO Jan 20, 2017 11:15
[2017-01-20] MEDS: cefTAZidime INJ 2,000 MG in SODIUM CHLORIDE 0.9% INJ 100 ML IV SCH ×2 (11:19→20:52)
[2017-01-20 12:00] VITALS: BP 112/43; PULSE 80; RESP 18; TEMP 98; O2SAT 95
--- NOTE | 2017-01-20 13:09 | HHI.FF ---
Face to Face Verification Diagnosis: (1) S/P exploratory laparotomy Physical Therapy Order: Evaluate and Treat Instructions: No restrictions Home Health Nursing Order: Wound care and dressing changes Instructions: Midline incision--- wet to dry 2x2 gauze in open area; cover with Primapore dressing; change daily JANE care I have seen patient Lew King on 01/20/17. My clinical findings support the need for the requested home health care services because: Limited ability to care for self High risk of falls I certify that my clinical findings support that this patient is homebound because: Post-op weakness Neeru Adam Jan 20, 2017 13:09
--- NOTE | 2017-01-20 13:27 | HHI.PR ---
Subjective Subjective Notes Resting in bed Had multiple BMs overnight Excited to have regular breakfast Objective Vitals/I&O Vital Signs Date Time Temp Pulse Resp B/P Pulse Ox O2 Delivery O2 Flow Rate FiO2 01/20/17 12:00 98.0 80 18 112/43 95 01/16/17 20:55 Room Air Labs Laboratory Tests Test 01/20/17 06:15 White Blood Count 6.9 Red Blood Count 3.51 Hemoglobin 10.7 Hematocrit 32.0 Mean Corpuscular Volume 91.3 Mean Corpuscular Hemoglobin 30.6 Mean Corpuscular Hemoglobin 33.5 Concent Red Cell Distribution Width 12.1 Platelet Count 199 Mean Platelet Volume 8.4 Neutrophils (%) (Auto) 71.4 Lymphocytes (%) (Auto) 14.5 Monocytes (%) (Auto) 9.1 Eosinophils (%) (Auto) 4.1 Basophils (%) (Auto) 0.9 Neutrophils # (Auto) 5.0 Lymphocytes # (Auto) 1.0 Monocytes # (Auto) 0.6 Eosinophils # (Auto) 0.3 Basophils # (Auto) 0.1 CBC Comment DIFF FINAL Differential Comment Sodium Level 140 Potassium Level 4.0 Chloride Level 103 Carbon Dioxide Level 31.2 Anion Gap 6 Blood Urea Nitrogen 19 Creatinine 0.89 Estimat Glomerular Filtration 81 Rate Random Glucose 112 Calcium Level 8.8 Magnesium Level 1.9 Radiology Last Impressions Renal Ultrasound 01/08/17 0000 Signed Impressions: Service Date/Time: Sunday, January 08, 2017 07:43 - CONCLUSION: No acute findings. No hydronephrosis. Trace free fluid near left kidney. Eric Patel MD Chest X-Ray 01/08/17 0000 Signed Impressions: Service Date/Time: Sunday, January 08, 2017 06:33 - CONCLUSION: 1. NG enters stomach. A central line in superior vena cava. Mild basilar airspace disease. Eric Patel MD Abdomen X-Ray 01/06/17 0600 Signed Impressions: Service Date/Time: December 06:05 - CONCLUSION: Dilated air-filled small bowel with paucity of gas in the colon. Findings are again suspicious for small bowel obstruction. Jung Art MD Abdomen/Pelvis CT 01/05/17 0097 Signed Impressions: Service Date/Time: Thursday, January 05, 2017 18:56 - CONCLUSION: 1. Wall bowel obstruction is noted with transition point in the right lower quadrant. Jayden Youssef MD Cardiovascular: Regular Lungs: Clear Abdomen: Other (midline incision; open area with 2x2 packing---removed; wound is clean without any drainage; JANE x1 ) Extremities: No edema A/P Problem List: (1) Small bowel obstruction (2) Hypertension (3) Acute kidney injury (4) S/P exploratory laparotomy Assessment and Plan 86 year old male with SBO; POD13 ex lap; BENJAMIN -Advance to soft diet -TPN off; will DC PICC -Continue antibiotics -Dressing changes ordered daily and PRN -PT eval and treat -OOB and mobilize--chair TID -Case management consult for C with PT -Discussed with RN Zahra and Tiki -Anticipate DC home tomorrow Attending Note - Dr. Enriquez Abdomen benign Wound clean Regular diet The exam, history, and the medical decision-making described in the above note were completed with the assistance of the mid-level provider. I reviewed and agree with the findings presented. I attest that I had a [id number] encounter with the patient on the same day, and personally performed and documented my assessment and findings in the medical record. Problem Qualifiers (1) Hypertension: Qualified Code: I15.9 - Secondary hypertension Neeru Adam Jan 20, 2017 13:27 Jaret Enriquez MD Jan 21, 2017 15:31
[2017-01-20 16:00] VITALS: BP 123/62; PULSE 76; RESP 18; TEMP 98.1; O2SAT 98
[2017-01-20 20:00] VITALS: BP 138/63; PULSE 87; RESP 20; TEMP 97.9; O2SAT 94
[2017-01-20 23:43] VITALS: BP 116/55; PULSE 75; RESP 21; TEMP 97.5; O2SAT 95
[2017-01-21] MEDS: ARTIFICIAL TEARS OPTH OINT 3.5 APPLIC/3.5 GM TUBO EACH EYE SCH ×2 (06:16→11:49)
[2017-01-21] MEDS: ENOXAPARIN SODIUM 30 MG/0.3 ML SYRINGE SQ SCH (06:17)
[2017-01-21] MEDS: INSULIN ASPART SUPPLEMENTAL SCALE SQ SCH ×2 (06:18→11:00)
[2017-01-21 08:00] VITALS: BP 138/63; PULSE 85; RESP 18; TEMP 97.5; O2SAT 95
[2017-01-21] MEDS ORDERED: PANT40TA3 PO (08:28)
[2017-01-21] MEDS: THIAMINE INJ 100 MG in SODIUM CHLORIDE 0.9% INJ 100 ML IV SCH (08:36)
[2017-01-21] MEDS: CITALOPRAM HYDROBROMIDE 20 MG TAB PO SCH (08:36)
[2017-01-21] MEDS: LOSARTAN 50 MG TAB PO SCH (08:36)
[2017-01-21] MEDS: PRAVASTATIN SOD 40 MG TAB PO SCH (08:38)
[2017-01-21] MEDS: SODIUM CHLORIDE 0.9% FLUSH 5 ML FLUSH FLUSH SCH (08:38)
[2017-01-21] MEDS: TRIAMTERENE/HCTZ 37.5 MG/25 MG CAP PO SCH (08:40)
[2017-01-21] MEDS: SODIUM CHLORIDE 0.9% FLUSH 10 ML FLUSH IV FLUSH SCH (08:43)
[2017-01-21] MEDS ORDERED: PANTOPRAZOLE SOD 40 MG DELAYED RELEASE TAB PO SCH (09:00)
--- NOTE | 2017-01-21 09:21 | HHI.PR ---
Subjective Remarks Follow up for SBO. Mr. King is doing well. Slept well. Denies any abdominal pain. Had small and large bowel movements in the last few days. No fever, chills. Excited about going home today. Objective Vitals Vital Signs Date Time Temp Pulse Resp B/P Pulse Ox O2 Delivery O2 Flow Rate FiO2 01/21/17 08:00 97.5 85 18 138/63 95 01/20/17 23:43 97.5 75 21 116/55 95 01/20/17 20:00 97.9 87 20 138/63 94 01/20/17 16:00 98.1 76 18 123/62 98 01/20/17 12:00 98.0 80 18 112/43 95 I/O 01/20/17 01/20/17 01/20/17 01/21/17 01/21/17 01/21/17 07:00 15:00 23:00 07:00 15:00 23:00 Intake Total 420 ml 882 ml 220 ml 120 ml Output Total 800 ml 30 ml 20 ml Balance -380 ml 882 ml 190 ml 100 ml Intake Oral 220 ml 240 ml 120 ml 120 ml IV Total 200 ml 642 ml 100 ml Output Urine Total 750 ml Drainage Total 50 ml 30 ml 20 ml # Voids 1 2 # Bowel Movements 0 0 0 Result Diagram: 01/20/1715 01/20/17 0615 Imaging Last Impressions Chest X-Ray 01/14/17 0000 Signed Impressions: Service Date/Time: Saturday, January 14, 2017 13:15 - CONCLUSION: 1. Right- sided PICC line has its tip in good position at the junction of the superior vena cava and right atrium. 2. Minimal right basilar streakiness consistent with probable atelectasis. 3. Degenerative changes throughout the thoracic spine. Sunny Batista MD Abdomen X-Ray 01/14/17 0000 Signed Impressions: Service Date/Time: Saturday, January 14, 2017 10:48 - CONCLUSION: 1. Improving bowel gas pattern without obstruction. Previous pattern was probably a hypodynamic ileus. 2. No pneumoperitoneum. 3. Postsurgical changes as above Chepe Bai MD Enema w/Water Soluble 01/13/17 0000 Signed Impressions: Service Date/Time: December 14:21 - CONCLUSION: 1. No evidence of colonic obstruction. 2. Uncomplicated colonic diverticulosis. 3. Multiple air-filled loops of small bowel suggesting partial small bowel obstruction or ileus. Clinical correlation is recommended. 4. Degenerative changes and mild scoliosis of the lumbar spine. Sunny Batista MD Renal Ultrasound 01/08/17 0000 Signed Impressions: Service Date/Time: Sunday, January 08, 2017 07:43 - CONCLUSION: No acute findings. No hydronephrosis. Trace free fluid near left kidney. Eric Patel MD Abdomen/Pelvis CT 01/05/17 1747 Signed Impressions: Service Date/Time: Thursday, January 05, 2017 18:56 - CONCLUSION: 1. Wall bowel obstruction is noted with transition point in the right lower quadrant. Jayden Youssef MD Objective Remarks GENERAL: AOX3, NAD. SKIN: Warm and dry. HEAD: Normocephalic. EYES: No scleral icterus. No injection or drainage. NECK: Supple, trachea midline. No JVD or lymphadenopathy. CARDIOVASCULAR: Regular rate and rhythm without murmurs, gallops, or rubs. RESPIRATORY: Breath sounds equal bilaterally. No accessory muscle use. GASTROINTESTINAL: Abdomen less distended, softer, BS+ , non-tender to palpation. MUSCULOSKELETAL: No cyanosis, or edema. BACK: Nontender without obvious deformity. No CVA tenderness. Procedures 01/07/2017 OPERATIVE PROCEDURE PERFORMED: 1. Diagnostic laparoscopy 2. Laparoscopic lysis of adhesions. 3. Exploratory laparotomy with decompression of small bowel and lysis of adhesions. A/P Problem List: (1) Small bowel obstruction ICD Code: K56.69 Status: Acute (2) Abdominal pain ICD Code: R10.9 Status: Acute (3) Hypertension ICD Code: I10 Status: Acute (4) Hyperlipidemia ICD Code: E78.5 Status: Acute (5) GERD (gastroesophageal reflux disease) ICD Code: K21.9 Status: Acute Assessment and Plan Mr. King is a pleasant 86 year old male with a history of HTN, HLD, GERD, previous colon resection who was admitted to the hospital on 01/05/2017 due to abdominal pain, distention. He was diagnosed with SBO and patient underwent Ex Lap on 01/07/2017. Acute small bowel obstruction with presenting abdominal pain distention: Increased risk factors from previous abdominal surgery. CT scan showed small bowel obstruction with transition zone. Gen. surgery following. Pt is s/p Laparoscopic lysis of adhesions, followed by exploratory laparotomy and small bowel decompression through enterostomy on 01/07/2017. - Morphine for pain control, Zofran for nausea vomiting - Postop wound management per Dr. Enriquez. NG tube in place. Continue pain control. Continue TPN. - blood cx Coag negative staph and Corynebacterium sp. Patient is currently on Ceftazidime. No further abx on discharge. - KUB done. Left distention of small bowel loops and suspect there is some air now seen in portions of the colon. No findings of obstruction or pneumoperitoneum. NG tube with the tip in the gastric antrum. - Gastrografin enema given - shows no colonic obstruction but shows partial SBO. Hypomagnesemia - Mag 1.9 - received IV MgSO4 IV Mild hypernatremia - Na 140 - Electrolytes are within normal range. - Nocturnal delirium - He is very cooperative and pleasant now. - Calm and cooperative on exam. - Will use Haloperidol if needed. - Hypertension - Continue Amlodipine 10mg Qday, Losartan 100mg Qday, Triamterene-HCTZ. Acute renal failure: now improving. nephrology following. Suspected ATN from hypotension. Creatinine peaked to 5.90, improved to 0.92 on 01/17/2017. - Mild hypokalemia - KCL replacement ordered by surgery team. K+ improved to 3.5 -->3.8. - Restless leg syndrome - Insomnia - Nocturnal agitation - Per family member, home dose Ropinirole was increased to 3mg . We will continue this dose at night. - Discontinued Seroquel. - Once bowel function returns to normal, consider Iron supplementation. --Prior tobacco use -Nasal cannula oxygen -DuoNeb every 6 hours and when necessary -Aggressive pulmonary toilet, incentive spirometry, Acapella -Ativan if needed for alcohol withdrawal and agitation. Supplement thiamine. Full code. Ambulation. Lovenox 30mg Q24 Discharge plan: Possibly today, 01/21/2017 if okay with General surgery. Problem Qualifiers (1) Abdominal pain: Qualified Code: R10.84 - Generalized abdominal pain (2) Hypertension: Qualified Code: I15.9 - Secondary hypertension (3) Hyperlipidemia: Qualified Code: E78.5 - Hyperlipidemia, unspecified hyperlipidemia type Alin Darby DO Jan 21, 2017 9:21 am
[2017-01-21] MEDS: cefTAZidime INJ 2,000 MG in SODIUM CHLORIDE 0.9% INJ 100 ML IV SCH (10:16)
[2017-01-21] MEDS ORDERED: NORC5TAB PO (12:49)
[2017-01-21] MEDS: MORPHINE SULFATE 4 MG/ML INJ IV PUSH PRN (13:12)
--- NOTE | 2017-01-21 13:29 | HHI.DS ---
Discharge Summary Admission Date Jan 05, 2017 at 8:17 pm Discharge Date: Jan 21, 2017 Admitting Diagnosis Small bowel obstruction (1) Small bowel obstruction ICD Code: K56.69 Diagnosis: Principal (2) Abdominal pain ICD Code: R10.9 Diagnosis: Principal (3) Hypertension ICD Code: I10 Diagnosis: Secondary (4) Hyperlipidemia ICD Code: E78.5 Diagnosis: Secondary (5) GERD (gastroesophageal reflux disease) ICD Code: K21.9 Diagnosis: Secondary Procedures 01/07/2017 OPERATIVE PROCEDURE PERFORMED: 1. Diagnostic laparoscopy 2. Laparoscopic lysis of adhesions. 3. Exploratory laparotomy with decompression of small bowel and lysis of adhesions. Brief History - From Admission 86-year-old male with known history of hypertension, hyperlipidemia, gastroesophageal reflux, history of colon resection secondary to diverticulitis who presented to hospital because of abdominal pain and distention. Patient states that he has had abdominal problems for years ever since he had part of his colon removed because of diverticulitis. Patient indicates that he does get intermittent episodes of problems with bowel movements and distention. He states that he usually has a lot of flatulence however that has diminished over the last couple days. Yesterday he noticed his belly was getting distended and had severe pain so his made him come to the hospital for evaluation. Patient states he did have a colonoscopy done 2 weeks ago without any abnormalities. Patient had workup done emergency department found to have acute bowel obstruction and recommended admission for further evaluation management. Upon evaluating the patient today he still has significant abdominal distention despite NG tube placement. CBC/BMP: 01/20/17 0615 01/20/17 0615 Significant Findings Laboratory Tests Test 01/19/17 01/20/17 08:39 06:15 Red Blood Count 3.80 MIL/MM3 3.51 MIL/MM3 (4.50-5.90) (4.50-5.90) Hemoglobin 11.6 GM/DL 10.7 GM/DL (13.0-17.0) (13.0-17.0) Hematocrit 34.8 % 32.0 % (39.0-51.0) (39.0-51.0) Neutrophils (%) (Auto) 78.4 % 71.4 % (16.0-70.0) (16.0-70.0) Lymphocytes # (Auto) 0.9 TH/MM3 (1.0-4.8) Blood Urea Nitrogen 19 MG/DL (7-18) 19 MG/DL (7-18) Estimat Glomerular Filtration 88 ML/MIN (>89) 81 ML/MIN (>89) Rate Random Glucose 129 MG/DL 112 MG/DL (74-106) (74-106) Albumin 2.7 GM/DL (3.4-5.0) Prealbumin 18 MG/DL (20-40) Monocytes (%) (Auto) 9.1 % (0.0-8.0) Eosinophils (%) (Auto) 4.1 % (0.0-4.0) Imaging Last Impressions Chest X-Ray 01/14/17 0000 Signed Impressions: Service Date/Time: Saturday, January 14, 2017 13:15 - CONCLUSION: 1. Right- sided PICC line has its tip in good position at the junction of the superior vena cava and right atrium. 2. Minimal right basilar streakiness consistent with probable atelectasis. 3. Degenerative changes throughout the thoracic spine. Sunny Batista MD Abdomen X-Ray 01/14/17 0000 Signed Impressions: Service Date/Time: Saturday, January 14, 2017 10:48 - CONCLUSION: 1. Improving bowel gas pattern without obstruction. Previous pattern was probably a hypodynamic ileus. 2. No pneumoperitoneum. 3. Postsurgical changes as above Chepe Bai MD Enema w/Water Soluble 01/13/17 0000 Signed Impressions: Service Date/Time: December 14:21 - CONCLUSION: 1. No evidence of colonic obstruction. 2. Uncomplicated colonic diverticulosis. 3. Multiple air-filled loops of small bowel suggesting partial small bowel obstruction or ileus. Clinical correlation is recommended. 4. Degenerative changes and mild scoliosis of the lumbar spine. Sunny Batista MD Renal Ultrasound 01/08/17 0000 Signed Impressions: Service Date/Time: Sunday, January 08, 2017 07:43 - CONCLUSION: No acute findings. No hydronephrosis. Trace free fluid near left kidney. Eric Patel MD Abdomen/Pelvis CT 01/05/17 8435 Signed Impressions: Service Date/Time: Thursday, January 05, 2017 18:56 - CONCLUSION: 1. Wall bowel obstruction is noted with transition point in the right lower quadrant. Jayden Youssef MD PE at Discharge GENERAL: AOX3, NAD. SKIN: Warm and dry. HEAD: Normocephalic. EYES: No scleral icterus. No injection or drainage. NECK: Supple, trachea midline. No JVD or lymphadenopathy. CARDIOVASCULAR: Regular rate and rhythm without murmurs, gallops, or rubs. RESPIRATORY: Breath sounds equal bilaterally. No accessory muscle use. GASTROINTESTINAL: Abdomen less distended, softer, BS+ , non-tender to palpation. MUSCULOSKELETAL: No cyanosis, or edema. BACK: Nontender without obvious deformity. No CVA tenderness. Pt update on day of discharge Mr. King is doing well today. Sitting in his chair. No acute concerns. Denies any fever, chills, abdominal pain. In the last few days, he has had small and large BM. General surgery cleared for discharge. Hospital Course Mr. King is a pleasant 86 year old male with a history of HTN, HLD, GERD, previous colon resection who was admitted to the hospital on 01/05/2017 due to abdominal pain, distention. He was diagnosed with SBO and patient underwent Ex Lap on 01/07/2017. Acute small bowel obstruction with presenting abdominal pain distention: Increased risk factors from previous abdominal surgery. CT scan showed small bowel obstruction with transition zone. Gen. surgery following. Pt is s/p Laparoscopic lysis of adhesions, followed by exploratory laparotomy and small bowel decompression through enterostomy on 01/07/2017. - Morphine for pain control, Zofran for nausea vomiting - Postop wound management per Dr. Enriquez. Patient is tolerating oral diet. Cleared for discharge by surgery. - blood cx Coag negative staph and Corynebacterium sp. Patient is currently on Ceftazidime. No further abx on discharge. Hypomagnesemia - Mag 1.9 - received IV MgSO4 IV Mild hypernatremia - Na 140 - Electrolytes are within normal range. - Nocturnal delirium - He is very cooperative and pleasant now. - Calm and cooperative on exam. - Will use Haloperidol if needed. - Hypertension - Continue Amlodipine 10mg Qday, Losartan 100mg Qday, Triamterene-HCTZ. Acute renal failure: now improving. nephrology following. Suspected ATN from hypotension. Creatinine peaked to 5.90, improved to 0.92 on 01/17/2017. - Mild hypokalemia - KCL replacement ordered by surgery team. K+ improved to 3.5 -->3.8. - Restless leg syndrome - Insomnia - Nocturnal agitation - Per family member, home dose Ropinirole was increased to 3mg . We will continue this dose at night. - Discontinued Seroquel. - Once bowel function returns to normal, consider Iron supplementation. --Prior tobacco use -Nasal cannula oxygen -DuoNeb every 6 hours and when necessary -Aggressive pulmonary toilet, incentive spirometry, Acapella -Ativan if needed for alcohol withdrawal and agitation. Supplement thiamine. Full code. Ambulation. Lovenox 30mg Q24 while in the hospital. Pt Condition on Discharge: Good Discharge Disposition: Disch w/ Home Health Serv Discharge Time: > 30 minutes Discharge Instructions DIET: Follow Instructions for: As Tolerated, No Restrictions Activities you can perform: Regular-No Restrictions Follow up Referrals: PCP Follow-up - 1 Week Surgical - 2 Weeks with Jaret Enriquez MD New Medications: Hydrocodone-Acetaminophen ([place]) 5-325 mg Tab 1-2 TAB PO Q4H PRN PAIN #25 Ref 0 TAB Pantoprazole (Pantoprazole) 40 Mg Tab 40 MG PO DAILY Reflux #30 TAB Continued Medications: Amlodipine (Amlodipine) 10 Mg Tab 10 MG PO DAILY Blood Pressure Management #30 Ref 0 TAB Ascorbic Acid (Ascorbic Acid) 250 Mg Chew 250 MG CHEW DAILY Nutritional Supplement #30 Ref 0 TAB Aspirin (Aspirin) 81 Mg Chew 81 MG CHEW DAILY Ref 0 TAB Candesartan (Candesartan) 32 Mg Tab 32 MG PO DAILY Blood Pressure Management #30 Ref 0 TAB Citalopram (Citalopram) 10 Mg Tab 10 MG PO DAILY Control Depression #30 Ref 0 TAB Lansoprazole (Lansoprazole) 30 Mg Capdr 30 MG PO DAILY Ref 0 CAP Pravastatin (Pravachol) 40 Mg Tab 40 MG PO DAILY Cholesterol Management #30 Ref 0 TAB Ropinirole (Ropinirole) 2 Mg Tab 2 MG PO DAILY #1 Ref 0 TAB Triamterene (Dyrenium) 50 Mg Cap 37.5 MG PO DAILY Edema #30 Ref 0 CAP Triamterene-Hydrochlorothiazide (Triamterene-Hydrochlorothiazide) 37.5-25 Mg Cap 1 CAP PO DAILY #30 Ref 0 CAP Alin Darby DO Jan 21, 2017 13:29
--- NOTE | 2017-01-21 15:28 | HHI.PR ---
Subjective Subjective Notes tolerating diet; wants to go home. Objective Vitals/I&O Vital Signs Date Time Temp Pulse Resp B/P Pulse Ox O2 Delivery O2 Flow Rate FiO2 01/21/17 08:00 97.5 85 18 138/63 95 Radiology Last Impressions Renal Ultrasound 01/08/17 0000 Signed Impressions: Service Date/Time: Sunday, January 08, 2017 07:43 - CONCLUSION: No acute findings. No hydronephrosis. Trace free fluid near left kidney. Eric Patel MD Chest X-Ray 01/08/17 0000 Signed Impressions: Service Date/Time: Sunday, January 08, 2017 06:33 - CONCLUSION: 1. NG enters stomach. A central line in superior vena cava. Mild basilar airspace disease. Eric Patel MD Abdomen X-Ray 01/06/17 0600 Signed Impressions: Service Date/Time: December 06:05 - CONCLUSION: Dilated air-filled small bowel with paucity of gas in the colon. Findings are again suspicious for small bowel obstruction. Jung Art MD Abdomen/Pelvis CT 01/05/17 1747 Signed Impressions: Service Date/Time: Thursday, January 05, 2017 18:56 - CONCLUSION: 1. Wall bowel obstruction is noted with transition point in the right lower quadrant. Jayden Youssef MD Lungs: Clear Abdomen: Non-distended, Non-tender A/P Problem List: (1) Small bowel obstruction (2) Hypertension (3) Acute kidney injury (4) S/P exploratory laparotomy Assessment and Plan 86 year old male with SBO; POD14 ex lap; [place]AM[place] Now tolerating regular diet with normal bowel activity. JANE output 50ml/last 24 hr; serous Plan: D/C JANE drain [facility] for wound care with daily dressing changes No antibiotics needed. F/U my office early next week Problem Qualifiers (1) Hypertension: Qualified Code: I15.9 - Secondary hypertension Jaret Enriquez MD Jan 21, 2017 15:28
== END 2017-01-21 14:51 | disposition home health service (06) | DRG 335 ==
LOC: PHED 16:20 → PHEDA 20:17 → PH3B 23:29 → N07B 01-06 19:51 → N03B 01-07 16:15 → N07A 01-08 14:42
PROVIDERS: ADMIT Hospitalist; ATTEND Hospitalist
PROC: 0WJP4ZZ Inspection of Gastrointestinal Tract, Percutaneous Endoscopic Approach (ICD-10-PCS; 2017-01-07)
PROC: 0DN80ZZ Release Small Intestine, Open Approach (ICD-10-PCS; principal; 2017-01-07 13:16)
PROC: 0D980ZZ Drainage of Small Intestine, Open Approach (ICD-10-PCS; 2017-01-07 13:16)
DX: K56.5 Intestinal adhesions [bands] with obstruction (postinfection) (principal); R65.21 Severe sepsis with septic shock; N17.0 Acute kidney failure with tubular necrosis; A41.9 Sepsis, unspecified organism; E87.0 Hyperosmolality and hypernatremia; N18.3 Chronic kidney disease, stage 3 (moderate); Z94.0 Kidney transplant status; K57.92 Diverticulitis of intestine, part unspecified, without perforation or abscess without bleeding; F10.239 Alcohol dependence with withdrawal, unspecified; E88.09 Other disorders of plasma-protein metabolism, not elsewhere classified; I12.9 Hypertensive chronic kidney disease with stage 1 through stage 4 chronic kidney disease, or unspecified chronic kidney disease; E78.5 Hyperlipidemia, unspecified; K21.9 Gastro-esophageal reflux disease without esophagitis; Z90.49 Acquired absence of other specified parts of digestive tract; G25.81 Restless legs syndrome; E83.51 Hypocalcemia; E87.6 Hypokalemia; I95.81 Postprocedural hypotension; E86.0 Dehydration; K56.7 Ileus, unspecified; D64.9 Anemia, unspecified; G47.00 Insomnia, unspecified; E83.42 Hypomagnesemia; R41.0 Disorientation, unspecified; F41.9 Anxiety disorder, unspecified; T42.4X5A Adverse effect of benzodiazepines, initial encounter; Y92.230 Patient room in hospital as the place of occurrence of the external cause; Z53.31 Laparoscopic surgical procedure converted to open procedure; Z78.1 Physical restraint status; Z87.891 Personal history of nicotine dependence
CPT/HCPCS: 36569; 71010; 74000; 74020; 74177; 74270; 76775; 76937; 80048; 80053; 81001; 82040; 82805; 82948; 83540; 83550; 83605; 83690; 83735; 83935; 84100; 84134; 84155; 84300; 84478; 85007; 85014; 85018; 85025; 85027; 85610; 86403; 87040; 87205; 93005; 94150; 94640; 94664; 94667; 94668; 96374; 96375; C9113; C9290; J0131; J0690; J0713; J1364; J1630; J1642; J1650; J1815; J2060; J2250; J2270; J2370; J2405; J2543; J2765; J3010; J3411; J3475; J3480; J7030; J7040; J7120; Q9963; Q9967

== ENCOUNTER 2017-11-02 10:14 | Emergency (ER) | payer MEDICARE, BC ==
[~2017-11-02] VITALS: Ht 167.6 cm; Wt 84.0 kg
[~2017-11-02 10:14] MED LIST changes: -AMLO10 PO; +AMLO10TA2 PO; +ASCO250C CHEW; +ASPI-516 CHEW; -ASPI81 PO; -ATAC32TA PO; +CAND32TA10 PO; +LANS30CA PO; -LORTA5 PO; +NORC5TAB PO; +PANT40TA3 PO; -PREV30CA36 PO; -ROPI2 PO; +ROPI2TAB PO; -TAB-TAB PO; +TRIA1CAP6 PO; +TRIA37.53 PO; -TRIA50 PO; -VITA250T32 PO
[2017-11-02 10:15] VITALS: BP 145/87; PULSE 91; RESP 20; TEMP 98.8; O2SAT 95
== END 2017-11-02 14:30 | disposition left against medical advice (07) ==
LOC: NED 10:14
DX: R68.89 Other general symptoms and signs (principal); Z53.21 Procedure and treatment not carried out due to patient leaving prior to being seen by health care provider
CPT/HCPCS: 99281

== ENCOUNTER → 2017-11-03 | Outpatient (CLI) | payer MEDICARE, BC ==
[2017-11-03 16:29] LABS: FOLATE 18.6 NG/ML (3.1-17.5)
[2017-11-08 17:53] LABS: STRIATED MUCLE AB TITER ND (<1:40)
== END ==
LOC: PLAB 13:43
PROVIDERS: ATTEND Psychiatry & Neurology Neurology
DX: G70.00 Myasthenia gravis without (acute) exacerbation (principal); I63.9 Cerebral infarction, unspecified
CPT/HCPCS: 36415; 82607; 82746; 83036; 83519; 84207; 84425; 85652; 86038; 86255